=== PATIENT | female | born 1945 | race Two or more races ===

== ENCOUNTER 2022-01-21 19:21 | Inpatient (IN) | payer MEDICAID, OTHER ==
[~2022-01-21] VITALS: Ht 165.1 cm; Wt 41.3 kg
--- NOTE | 2022-01-21 19:47 | NUR ---
BIBPA FROM [facility] C/O DESTAT 89% AT [facility], NOW ON 5L 92% N/C AND BRIGH RED BLOOD IN SPUTUM. UPON ASSESSMENT, PT HAS SIGNIFICANT BLOOD IN SPUTUM WITH GURGLING RESPIRATION. BRIGH RED BLOOD SUCTIONED. PT 87% PLACED ON 10LPM SIMPLE MASK. PT AWAKE X0 AT BASELINE. PLACED ON MONITOR AND NOTED TACHYCARDIC AND NORMOTENSIVE. WAS AT BEDSIDE FOR PT EVAL.
--- NOTE | 2022-01-21 19:50 | NUR ---
RT AT PT'S BEDSIDE FOR SUCTION
--- NOTE | 2022-01-21 19:56 | NUR ---
URINE COLLECTED VIA F/C THAT INSERTED SITE DIRECTOR
--- NOTE | 2022-01-21 19:57 | NUR ---
R RIVER #20G S/L BLOOD COLLECTED AND SENT TO LAB
--- NOTE | 2022-01-21 20:02 | NUR ---
COVID ANTIGEN SWAB COLLECTED AND SENT TO LAB
[2022-01-21] MEDS ORDERED: PIPERACILLIN /TAZOBACTAM 3.375 G VIAL IV ONE (20:30)
[2022-01-21] MEDS ORDERED: PIPERACILLIN /TAZOBACTAM 3.375 G in IV D5W 50 ML IV ONE (20:30)
[2022-01-21 20:46] LABS: BASOPHILS # (AUTO) 0.1 K/uL (0.0-0.2); BASOPHILS % (AUTO) 0.3 % (0.0-2.0); EOSINOPHILS % (AUTO) 0.1 % (0.0-6.0); HEMATOCRIT 30 % (33-45); HEMOGLOBIN 9.1 g/dL (11.5-14.8); LYMPHOCYTES # (AUTO) 2.5 K/uL (0.8-4.8); LYMPHOCYTES % (AUTO) 14.5 % (20.0-44.0); MEAN CORPUSCULAR HGB CONC 31 g/dl (31.0-36.0); MEAN CORPUSCULAR VOLUME 86 fL (82-100); MONOCYTES # (AUTO) 0.5 K/uL (0.1-1.30); MONOCYTES % (AUTO) 2.8 % (2.0-12.0); NEUTROPHILS % (AUTO) 82.3 % (43.0-81.0); PLATELET COUNT (AUTO) 593 K/uL (150-450); RED BLOOD CELL COUNT(AUTO) 3.46 MIL/uL (4.0-5.2)
[2022-01-21 20:52] LABS: CALCIUM, SERUM 9.3 mg/dL (8.5-10.1); CARBON DIOXIDE 25 mmol/L (21-32); CHLORIDE 102 mmol/L (98-107); CREATININE 0.6 mg/dL (0.6-1.3); GLUCOSE 208 mg/dL (74-106); POTASSIUM 4.5 mmol/L (3.5-5.1); SODIUM SERUM 136 mmol/L (136-145); UREA NITROGEN, BLOOD 36 mg/dL (7-18)
[2022-01-21 20:58] LABS: BILIRUBIN,URINE NEGATIVE (NEGATIVE); COLOR,URINE YELLOW (YELLOW); LEUKOCYTE ESTERASE ,URINE LARGE (NEGATIVE); NITRITE, URINE POSITIVE (NEGATIVE); PROTEIN,URINE TRACE mg/dl (NEGATIVE); UGLUCOSE NEGATIVE (NEGATIVE); UROBILINOGEN,URINE 0.2 EU/dL (0.2)
[2022-01-21 21:03] LABS: ALANINE AMINOTRANSFERASE 19 U/L (12-78); ALBUMIN 2.9 g/dL (3.4-5.0); ALKALINE PHOSPHATASE 100 U/L (46-116); ASPARTATE AMINOTRANSFERASE 19 U/L (15-37); BILIRUBIN,DIRECT 0.1 mg/dL (0.0-0.2); BILIRUBIN,TOTAL 0.2 mg/dL (0.2-1.0); TOTAL PROTEIN, SERUM 7.7 g/dL (6.4-8.2)
--- NOTE | 2022-01-21 21:03 | NUR ---
EPIC PANEL PAGED
[2022-01-21 21:11] LABS: TRIPLE PHOSPHATE CRYSTAL,UR Many /HPF (None Seen); URINE AMORPHOUS PHOSPHATES Few /HPF (None Seen)
[2022-01-21 21:12] LABS: BACTERIA,URINE 3+ /HPF (None Seen); SQUAMOUS EPITHELIAL CELL,UR 0-2 /HPF (None Seen); WBC,URINE 51-80 /HPF (0-3)
[2022-01-21] MEDS ORDERED: IV NS 0.9% 1,000 ML IV PRN (22:00)
[2022-01-21] MEDS ORDERED: ALBUTEROL FS 2.5 MG/0.5 ML VIAL.NEB NEB ONE (22:00)
[2022-01-21] MEDS ORDERED: MAGNESIUM HYDROXIDE 30 ML UDC PO PRN (22:00)
[2022-01-21] MEDS ORDERED: MAG HYDROX/AL HYDROX/SIMETH 30 ML UDC PO PRN (22:00)
[2022-01-21] MEDS ORDERED: ZOLPIDEM TARTRATE 5 MG TABLET PO PRN (22:00)
[2022-01-21] MEDS ORDERED: Z GUARD REMEDY 4 OZ OINT TP PRN (22:00)
[2022-01-21] MEDS ORDERED: IPRATROPIUM NEB FS 0.5 MG/2.5 ML AMPUL.NEB NEB ONE (22:00)
[2022-01-21] MEDS ORDERED: ACETAMINOPHEN 325 MG TABLET PO PRN (22:00)
[2022-01-21] MEDS ORDERED: ONDANSETRON HCL/PF 4 MG/2 ML VIAL IVP PRN (22:00)
[2022-01-21 23:30] LABS: HEMOGLOBIN 8.8 g/dL (11.5-14.8)
[2022-01-22] MEDS ORDERED: VANCOMYCIN 1 GM in IV D5W 250ml IV ONE ×2
[2022-01-22] MEDS ORDERED: DEXTROSE 50%-WATER 50 ML DISP.SYRIN IV PRN
--- NOTE | 2022-01-22 00:12 | NUR ---
REPORT GIVEN TO EFRAÍN
[2022-01-22 00:30] VITALS: BP 122/73
--- NOTE | 2022-01-22 00:30 | NUR ---
TECHNICAL SYSTEMS ARCHITECT OPENING NOTE RECEIVED PATIENT VIA LOGANRYESSY FROM ED. PT NON VERBAL, ON 2L 02 VIA NC, TOLERATING WELL, SATTING AT 99%, NO S/S OF ACUTE DISTRESS. VSS. TELE MONITOR READING ST HR 108. IV ACCESS FLOR PICC LINE 1 LUMEN, INTACT AND PATENT, PATEINT COVERED IN DRIED BLOOD, FROM ASPIRATION IN THE ER. SACRAL WOUND AND BRUISING/OLD HEALED WOUNDS ON BOTH BUTTOCKS, PICTURES IN THE CHART. ALL SAFETY MEASURES IN PLACE, AND WILL CONTINUE TO MONITOR THROUGHOUT SHIFT.
--- NOTE | 2022-01-22 00:30 | NUR ---
pt transported to room 104 on cardiac per ACLS
[2022-01-22] MEDS ORDERED: VANCOMYCIN 1 GM VIAL ONE (01:47)
[2022-01-22] MEDS: PANTOPRAZOLE 40 MG VIAL IV SCH ×3 (01:53→22:35)
[2022-01-22] MEDS ORDERED: PIPERACILLIN /TAZOBACTAM 3.375 G in IV D5W 50 ML IV ONE (03:00)
[2022-01-22] MEDS ORDERED: PIPERACILLIN /TAZOBACTAM 3.375 G VIAL IV ONE (03:31)
--- NOTE | 2022-01-22 03:43 | NUR ---
RN NOTE CALLED [facility] ABOUT ZOSYN DUE AT 030. ORDER WAS DUE, CHARGE PULLED/OVERRIDED TWINICERAFAEL AT 033. I SCANNED INTO EMAR AT 033 TO ADMINISTER. ONCE THE MED WAS SCANNED FOR ADMINISTRATION THE ORDER THEN SAID DC AT 032. RIMMA FROM [facility] ADVISED TO GIVE THE MED OF ZOSYN.
[2022-01-22 04:00] VITALS: BP 122/74
[2022-01-22] MEDS ORDERED: PIPERACILLIN /TAZOBACTAM 3.375 G in IV D5W 50 ML IV SCH (06:00)
[2022-01-22 06:18] LABS: CARBON DIOXIDE 26 mmol/L (21-32); CHLORIDE 104 mmol/L (98-107); CREATININE 0.5 mg/dL (0.6-1.3); GLUCOSE 197 mg/dL (74-106); MAGNESIUM 2.2 mg/dL (1.8-2.4); PHOSPHORUS 2.8 mg/dL (2.5-4.9); SODIUM SERUM 137 mmol/L (136-145); UREA NITROGEN, BLOOD 40 mg/dL (7-18)
--- NOTE | 2022-01-22 07:03 | NUR ---
FARM MANAGER CLOSING NOTE PATIENT ASLEEP IN BED, PT NON VERBAL, ON 2L 02 VIA NC, TOLERATING WELL, SATTING AT 99%, NO S/S OF ACUTE DISTRESS. VSS. TELE MONITOR READING ST HR 110. IV ACCESS FLOR PICC LINE 1 LUMEN, CURRENTLY OCCLUDED. MICHAELS CATHETER DRAINING CLEAR YELLOW URINE WITH SOME SEDIMENTS. ALL DUE MEDS GIVEN. ALL SAFETY MEASURES IN PLACE. WILL ENDORSE TO MORNING SHIFT FOR CONTINUOS CARE.
--- NOTE | 2022-01-22 07:29 | NUR ---
WEB CONTENT DEVELOPER OPENING NOTE RECEIVED PT NON VERBAL, ON 2L 02 VIA NC, TOLERATING WELL, NO S/S OF ACUTE DISTRESS. VSS. TELE MONITOR. CURRENTLY DOES NOT HAVE IV ACCES PICC LINE BECAME CLOGGED. FROM ASPIRATION IN THE ER. PATIENT IS NPO DUE TO ASPIRATION PRECAUTIONS PENDING GI CONSULT.. ALL SAFETY MEASURES IN PLACE, AND WILL CONTINUE TO MONITOR THROUGHOUT SHIFT.
[2022-01-22 08:00] VITALS: BP 109/66
[2022-01-22] MEDS: BLOOD SUGAR DIAGNOSTIC 1 EACH STRIP IN SCH ×4 (08:56→22:35)
--- NOTE | 2022-01-22 08:56 | NUR ---
RN NOTE NO IV ACCES ON PATIENT PENDING MIDLINE PLACEMENT WILL HOLD IV PROTONIX, BLOOD GLUCOSE 184 PATIENT IS NPO NO FLUIDS RUNNING WILL HOLD AM INSULIN. AND WILL REASSESS GLUCOSE STATUS 1200
[2022-01-22] MEDS ORDERED: PANTOPRAZOLE 40 MG VIAL IV SCH (09:00)
[2022-01-22 09:13] LABS: HEMOGLOBIN 8.3 g/dL (11.5-14.8)
[2022-01-22 09:16] LABS: BASOPHILS % (AUTO) 0.1 % (0.0-2.0); HEMATOCRIT 27 % (33-45); LYMPHOCYTES # (AUTO) 2.1 K/uL (0.8-4.8); LYMPHOCYTES % (AUTO) 7.2 % (20.0-44.0); MEAN CORPUSCULAR HGB CONC 30 g/dl (31.0-36.0); MEAN CORPUSCULAR VOLUME 85 fL (82-100); MONOCYTES # (AUTO) 0.7 K/uL (0.1-1.30); MONOCYTES % (AUTO) 2.4 % (2.0-12.0); NEUTROPHILS # (AUTO) 26.6 K/uL (1.8-8.9); NEUTROPHILS % (AUTO) 90.3 % (43.0-81.0); PLATELET COUNT (AUTO) 467 K/uL (150-450); WHITE BLOOD COUNT (AUTO) 29.5 K/uL (4.3-11.0)
[2022-01-22] MEDS ORDERED: ACET650S26 GT (09:23)
[2022-01-22] MEDS ORDERED: NUT.237L30 GT (09:23)
[2022-01-22] MEDS ORDERED: ACID1TAB12 GT (09:23)
[2022-01-22] MEDS ORDERED: AMLO-212 GT (09:23)
[2022-01-22] MEDS ORDERED: CLOP75TA15 GT (09:23)
[2022-01-22] MEDS ORDERED: ASPI-1169 GT (09:23)
[2022-01-22] MEDS ORDERED: METF-441 GT (09:24)
[2022-01-22] MEDS ORDERED: AMIN30LI2 GT (09:24)
[2022-01-22] MEDS ORDERED: SODI473S8 TD (09:24)
[2022-01-22] MEDS ORDERED: ACET-2605 GT (09:24)
[2022-01-22] MEDS ORDERED: INSU100V39 SQ (09:24)
[2022-01-22] MEDS ORDERED: HYDR-4303 GT ×2 (09:24)
[2022-01-22] MEDS ORDERED: CRAN3875 GT (09:24)
[2022-01-22] MEDS ORDERED: MULT-447 GT (09:24)
[2022-01-22] MEDS ORDERED: SENN-261 GT (09:24)
--- NOTE | 2022-01-22 11:06 | NUR ---
WOUND CARE CONSULT: PT SLEEPING SOUNDLY AT THIS TIME. REVIEWED CHART, NURSING DOCUMENTATION AND PHOTO WHICH INDICATES SACRAL STAGE 4 PRESSURE ULCER, PRESENT ON ADMISSION. PT SLEEPING ON SIDE AND NOTED TO HAVE DISCOLORATION TO FEET, PRESENT ON ADMISSION. DR DUMONT CALLED FOR SURGICAL CONSULT. [facility] IN AGREEMENT WITH PLAN OF CARE. Addendum: 01/22/22 at 1107 by SANG GARCIA WNDNU DISCUSSED SKIN PROTECTION WITH NURSING STAFF.
[2022-01-22] MEDS: PIPERACILLIN /TAZOBACTAM 3.375 G in IV D5W 100 ML IV SCH ×2 (11:11→17:32)
[2022-01-22 12:00] VITALS: BP 125/67
[2022-01-22 12:22] LABS: BAND % (MANUAL) 15 % (0.0-5.0); LYMPHOCYTES % (MANUAL) 5 % (16-48); MONOCYTES % (MANUAL) 1 % (0-11.0); NEUTROPHILS % (MANUAL) 79 (42-76)
--- NOTE | 2022-01-22 15:33 | NUR ---
RN NOTE ATTEMPTED TO CONTACT PATIENT SON [phone] ASHWIN HOYOS REGARDING EGD CONSENT. LEFT MESSAGE TO CALL UNIT BACK. Addendum: 01/22/22 at 1554 by PAVAN FIGUEROA RN SON CALLED BACK CONSENT WAS GIVEN FOR PROCEDURE, ANESTHESIA, NAND BLOOD TRANSFUSION IF NEEDED, CHARGE NURSE WITNESSED. CONSENTS PLACED IN THE CHART
[2022-01-22] MEDS: VANCOMYCIN 500 MG in IV D5W 100 ML IV SCH (15:39)
[2022-01-22 16:00] VITALS: BP 122/66
[2022-01-22] MEDS: INSULIN REGULAR, HUMAN 100 UNIT/ML 3 ML VIAL SQ PRN ×2 (17:33→23:47)
--- NOTE | 2022-01-22 17:49 | NUR ---
UNABLE TO PERFORM DUPLEX VENOUS LOWER EXT BILATERAL PATIENT IS CONTRACTED. JULIA BROWNE ADVISED. SHE INFORMED DR. WILL.
--- NOTE | 2022-01-22 18:04 | NUR ---
RN NOTE RECEIVED CALL FROM DR GARNETT ANESTHESIOLOGY. REQUESTING I SPEAK TO HOSPITALIST REGARDING GIVING A POSSIBLE BOLUS. PATIENT IS TACHY AND LACTIC ACID IS ELEVATED DR GARNETT WAS CONCERN REGARDING DEHYDRATION. INFORMED DR GREY WAS GIVEN TH ORDER TO INCREASE FLUIDS TO 125MLS/HR. DR GARNETT ALSO SUGGESTED TYPE AND SCREEN PRIOR TO PROCEDURE DUE TO HGB 8.3. ORDER PLACED AND FOLLOWED.
--- NOTE | 2022-01-22 18:43 | NUR ---
COOKIE BREAKER CLOSING NOTE PATIENT ASLEEP IN BED, PT NON VERBAL, ON 2L 02 VIA NC, TOLERATING WELL, SATTING AT 98%, NO S/S OF ACUTE DISTRESS. VSS. TELE MONITOR READING ST HR 104. IV ACCESS FLOR PICC LINE 1 LUMEN, LEFT UPPER ARM MIDLINE AND RIGHT WRIST 20G IV . MICHAELS CATHETER DRAINING CLEAR YELLOW URINE WITH SOME SEDIMENTS. ALL DUE MEDS GIVEN. ALL SAFETY MEASURES IN PLACE. WILL ENDORSE TO BUSINESS OWNER/ENGINEER FOR DARWIN.
[2022-01-22] MEDS: DAKINS QUARTER STRENGTH (0.125%) 480 ML BOTTLE TOP SCH (19:00)
--- NOTE | 2022-01-22 19:30 | NUR ---
PT RECEIVED AWAKE IN BED, PT NON VERBAL, ON 2L 02 VIA NC, NO S/S OF ACUTE DISTRESS. TELE MONITOR READING ST HR 110. IV ACCESS FLOR PICC LINE 1 LUMEN, LEFT UPPER ARM MIDLINE AND RIGHT WRIST 20G IV. WITH NS INFUSING AT 125 ML/HR. MICHAELS CATHETER DRAINING CLEAR YELLOW URINE WITH SOME SEDIMENTS. SAFETY MEASURES IN PLACE. HEAD OF BED SLIGHTLY ELEVATED, BED LOCKED IN LOWEST POSITION, SIDE RAILS UP X2, BED ALARM ON, CALL LIGHT WITHIN REACH. WILL CONTINUE PLAN OF CARE.
[2022-01-22 20:00] VITALS: BP 125/66
[2022-01-22] MEDS: IV NS 0.9% 1,000 ML IV PRN (20:59)
[2022-01-23] VITALS: BP 151/72
[2022-01-23] MEDS: PIPERACILLIN /TAZOBACTAM 3.375 G in IV D5W 100 ML IV SCH ×3 (01:01→18:32)
[2022-01-23] MEDS: VANCOMYCIN 500 MG in IV D5W 100 ML IV SCH (01:01)
[2022-01-23 04:00] VITALS: BP 110/57
--- NOTE | 2022-01-23 07:46 | NUR ---
PT ASLEEP IN BED, PT NON VERBAL, ON 2L 02 VIA NC, NO S/S OF ACUTE DISTRESS. TELE MONITOR READING SR AT 90'S AT THIS TIME. IV ACCESS FLOR PICC LINE 1 LUMEN, LEFT UPPER ARM MIDLINE AND RIGHT WRIST 20G IV. WITH NS INFUSING AT 125 ML/HR. MICHAELS CATHETER REPLACED DRAINING CLEAR YELLOW URINE. SAFETY MEASURES MAINTAINED. HEAD OF BED SLIGHTLY ELEVATED, BED LOCKED IN LOWEST POSITION, SIDE RAILS UP X2, BED ALARM ON, CALL LIGHT WITHIN REACH. WILL ENDORSE TO NEXT NURSE ON DUTY FOR CONTINUITY OF CARE.
[2022-01-23 08:00] VITALS: BP 135/66
[2022-01-23] MEDS: PANTOPRAZOLE 40 MG VIAL IV SCH ×2 (08:23→22:01)
[2022-01-23] MEDS: DAKINS QUARTER STRENGTH (0.125%) 480 ML BOTTLE TOP SCH (08:24)
[2022-01-23] MEDS: BLOOD SUGAR DIAGNOSTIC 1 EACH STRIP IN SCH ×4 (08:30→22:09)
[2022-01-23] MEDS: IV NS 0.9% 1,000 ML IV PRN (09:47)
[2022-01-23 11:07] LABS: CALCIUM, SERUM 8.7 mg/dL (8.5-10.1); CARBON DIOXIDE 26 mmol/L (21-32); CHLORIDE 114 mmol/L (98-107); CREATININE 0.4 mg/dL (0.6-1.3); GLUCOSE 120 mg/dL (74-106); POTASSIUM 3.1 mmol/L (3.5-5.1); SODIUM SERUM 148 mmol/L (136-145); UREA NITROGEN, BLOOD 24 mg/dL (7-18)
[2022-01-23 12:00] VITALS: BP 115/65
--- NOTE | 2022-01-23 13:45 | NUR ---
RN NOTE PATIENT WAS TAKEN TO SURGERY FOR EGD AT 1130 AND BROUGHT BACK BY JULIA CROCKER AT 1345. PATIENT WITH OPEN EYE AND NORMAL VITAL SIGNS. BP: 116/52 HR:75 O2:98% RR: 20 T:97.8 PATIENT ON NC 2L. RESUMED ON PREVIOUS MEDICATION AND DIET. BED AT LOWEST POSITION CALL LIGHT WITHIN REACH, BED ALARM ON. WILL MONITOR PATIENT T/O THE SHIFT.
[2022-01-23 16:00] VITALS: BP 128/58
[2022-01-23] MEDS ORDERED: GLUCERNA 1.2 1,000 ML BOTTLE GT PRN (16:30)
[2022-01-23] MEDS: VANCOMYCIN HCL 0.75 GM in IV D5W 250 ML IV SCH (17:33)
--- NOTE | 2022-01-23 19:00 | NUR ---
RN CLOSING NOTE PATIENT AWAKE IN BED NON VERBAL, ON 2L OXYGEN VIA NC, TOLERATING WELL, SATTING AT 98%, NO S/S OF ACUTE DISTRESS. VSS. TELE MONITOR READING ST HR 105. IV ACCESS FLOR PICC LINE 1 LUMEN, LEFT UPPER ARM MIDLINE AND RIGHT WRIST 20G IV . MICHAELS CATHETER DRAINING CLEAR YELLOW URINE WITH SOME SEDIMENTS. ALL DUE MEDS GIVEN. ALL SAFETY MEASURES IN PLACE. WILL ENDORSE TO GOVERNMENT GUARD FOR DARWIN.
[2022-01-23 20:00] VITALS: BP 122/65
--- NOTE | 2022-01-23 22:15 | NUR ---
2215 critical MRSA nares positive result relayed to GERALDO Casas with order made. Order noted and carried out.
[2022-01-24] VITALS (11 sets, daily range): BP systolic 113–144; BP diastolic 55–78
[2022-01-24] MEDS: PIPERACILLIN /TAZOBACTAM 3.375 G in IV D5W 100 ML IV SCH ×3 (02:54→22:17)
[2022-01-24] MEDS: IV NS 0.9% 1,000 ML IV PRN (04:25)
[2022-01-24] MEDS: VANCOMYCIN HCL 0.75 GM in IV D5W 250 ML IV SCH ×2 (04:25→17:27)
--- NOTE | 2022-01-24 06:30 | NUR ---
RN CLOSING NOTE: AWAKE. ABLE TO OPEN EYES. NON-VERBAL. GT IN PLACE PATENT. HOB ELEVATED ON SEMI-FOWLERS POSITION. KEPT CLEAN AND DRY. TURNED AND REPOSITIONED WITH PILLOWS. NO A/R TO ABX. IVF ORDERED. ALL IV LINES IN PLACE PATENT AND WITH NO COMPLICATIONS. HOB ELEVATED. BILATERAL HALF SIDE RAILS UP X2. BED IN LOWEST POSITION. BED IS LOCKED. BED EXIT ALARM ON. CALL LIGHT IN REACH.
[2022-01-24 06:51] LABS: CALCIUM, SERUM 8.6 mg/dL (8.5-10.1); CARBON DIOXIDE 25 mmol/L (21-32); CHLORIDE 110 mmol/L (98-107); CREATININE 0.3 mg/dL (0.6-1.3); GLUCOSE 175 mg/dL (74-106); MAGNESIUM 1.8 mg/dL (1.8-2.4); PHOSPHORUS 2.1 mg/dL (2.5-4.9); UREA NITROGEN, BLOOD 11 mg/dL (7-18)
[2022-01-24 07:19] LABS: BASOPHILS % (AUTO) 0.1 % (0.0-2.0); EOSINOPHILS % (AUTO) 0.1 % (0.0-6.0); LYMPHOCYTES # (AUTO) 1.4 K/uL (0.8-4.8); MEAN CORPUSCULAR HGB CONC 31 g/dl (31.0-36.0); MEAN CORPUSCULAR VOLUME 85 fL (82-100); MONOCYTES # (AUTO) 0.5 K/uL (0.1-1.30); MONOCYTES % (AUTO) 5.4 % (2.0-12.0); NEUTROPHILS # (AUTO) 7.8 K/uL (1.8-8.9); NEUTROPHILS % (AUTO) 80.4 % (43.0-81.0); PLATELET COUNT (AUTO) 318 K/uL (150-450); RED BLOOD CELL COUNT(AUTO) 2.37 MIL/uL (4.0-5.2); WHITE BLOOD COUNT (AUTO) 9.7 K/uL (4.3-11.0)
[2022-01-24 07:35] LABS: HEMATOCRIT 20 % (33-45); HEMOGLOBIN 6.3 g/dL (11.5-14.8)
--- NOTE | 2022-01-24 07:38 | NUR ---
LAB Called in stated that hgb 6.3 hct 20 left message to ,waiting for returning call back
[2022-01-24 07:43] LABS: SODIUM SERUM 144 mmol/L (136-145)
[2022-01-24 08:05] LABS: POTASSIUM 2.3 mmol/L (3.5-5.1)
[2022-01-24] MEDS ORDERED: GLUCERNA 1.2 1,000 ML BOTTLE GT PRN (08:54)
[2022-01-24] MEDS: PANTOPRAZOLE 40 MG VIAL IV SCH ×2 (09:28→21:01)
[2022-01-24] MEDS: POTASSIUM CL. PREMIX PERIPHER. 50 ML IV SCH ×8 (09:31→22:18)
[2022-01-24] MEDS: DAKINS QUARTER STRENGTH (0.125%) 480 ML BOTTLE TOP SCH (09:32)
[2022-01-24] MEDS: BLOOD SUGAR DIAGNOSTIC 1 EACH STRIP IN SCH ×4 (09:32→23:19)
[2022-01-24] MEDS ORDERED: NEUTRA PHOS 1 POWD.PACKET GT ONE (10:00)
[2022-01-24 12:43] LABS: BAND % (MANUAL) 5 % (0.0-5.0); EOSINOPHILS % (MANUAL) 2 % (0-4); LYMPHOCYTES % (MANUAL) 13 % (16-48); METAMYELOCYTES % 1 % (0-0); MONOCYTES % (MANUAL) 3 % (0-11.0); NEUTROPHILS % (MANUAL) 75 (42-76)
--- NOTE | 2022-01-24 19:02 | NUR ---
RN NOTE PT STARTED BLOOD TRANSFUSION 1UNIT PRBC. NO ALLERGIC REACTIONS NOTED. WILL CONTINUE TO MONITOR. PT ON NPO STATUS.
--- NOTE | 2022-01-24 19:25 | NUR ---
RN NOTE S/P WOUND DEBRIDEMENT ON SACRUM. NO ACTIVE BLEEDING, NO SS OF INFECTION NOTED.
[2022-01-24] MEDS: MUPIROCIN OINT 2% 22 GM TUBE NS SCH (22:19)
[2022-01-24] MEDS: INSULIN REGULAR, HUMAN 100 UNIT/ML 3 ML VIAL SQ PRN (23:23)
[2022-01-25] VITALS: BP 142/65
[2022-01-25] MEDS: PIPERACILLIN /TAZOBACTAM 3.375 G in IV D5W 100 ML IV SCH ×3 (02:48→17:09)
[2022-01-25 04:00] VITALS: BP 115/55
[2022-01-25] MEDS: VANCOMYCIN HCL 0.75 GM in IV D5W 250 ML IV SCH ×3 (05:21→21:26)
[2022-01-25 06:39] LABS: BASOPHILS % (AUTO) 0.2 % (0.0-2.0); EOSINOPHILS % (AUTO) 0.1 % (0.0-6.0); HEMATOCRIT 25 % (33-45); HEMOGLOBIN 8.2 g/dL (11.5-14.8); LYMPHOCYTES % (AUTO) 26.5 % (20.0-44.0); MEAN CORPUSCULAR HGB CONC 32 g/dl (31.0-36.0); MEAN CORPUSCULAR VOLUME 85 fL (82-100); MONOCYTES # (AUTO) 0.6 K/uL (0.1-1.30); MONOCYTES % (AUTO) 7.6 % (2.0-12.0); NEUTROPHILS # (AUTO) 4.9 K/uL (1.8-8.9); NEUTROPHILS % (AUTO) 65.6 % (43.0-81.0); PLATELET COUNT (AUTO) 294 K/uL (150-450); RED BLOOD CELL COUNT(AUTO) 2.99 MIL/uL (4.0-5.2); WHITE BLOOD COUNT (AUTO) 7.5 K/uL (4.3-11.0)
[2022-01-25] MEDS: IV NS 0.9% 1,000 ML IV PRN (06:42)
--- NOTE | 2022-01-25 06:55 | NUR ---
RN CLOSING NOTE: AWAKE. ABLE TO OPEN EYES. NON-VERBAL. GT IN PLACE PATENT. GT FEEDING FORMULA ON HOLD. HOB ELEVATED ON SEMI-FOWLERS POSITION. KEPT CLEAN AND DRY. TOPICAL TREATMENT DONE ORDERED. ON TELE MONITOR WITH A READING OF SINUS RHYTHM 86. TURNED AND REPOSITIONED WITH PILLOWS. NO A/R TO ABX. IVF ORDERED. S/P BLOOD TRANSFUSION WITH NO A/R. ALL IV LINES IN PLACE PATENT AND WITH NO COMPLICATIONS. HOB ELEVATED. BILATERAL HALF SIDE RAILS UP X2. BED IN LOWEST POSITION. BED IS LOCKED. BED EXIT ALARM ON. CALL LIGHT IN REACH. ISOLATION PRECAUTIONS MAINTAINED.
[2022-01-25 07:49] LABS: CALCIUM, SERUM 8.4 mg/dL (8.5-10.1); CARBON DIOXIDE 25 mmol/L (21-32); CHLORIDE 108 mmol/L (98-107); CREATININE 0.3 mg/dL (0.6-1.3); GLUCOSE 117 mg/dL (74-106); MAGNESIUM 1.8 mg/dL (1.8-2.4); POTASSIUM 2.9 mmol/L (3.5-5.1); SODIUM SERUM 142 mmol/L (136-145); UREA NITROGEN, BLOOD 6 mg/dL (7-18)
[2022-01-25 08:00] VITALS: BP 135/59
[2022-01-25] MEDS: PANTOPRAZOLE 40 MG VIAL IV SCH ×2 (09:03→21:26)
[2022-01-25] MEDS: BLOOD SUGAR DIAGNOSTIC 1 EACH STRIP IN SCH ×4 (09:04→21:26)
[2022-01-25] MEDS: MUPIROCIN OINT 2% 22 GM TUBE NS SCH ×2 (09:04→21:26)
[2022-01-25] MEDS: DAKINS QUARTER STRENGTH (0.125%) 480 ML BOTTLE TOP SCH (09:05)
[2022-01-25 12:00] VITALS: BP 128/60
[2022-01-25] MEDS ORDERED: NEUTRA PHOS 1 POWD.PACKET PO ONE (12:00)
[2022-01-25] MEDS: POTASSIUM CL. PREMIX PERIPHER. 50 ML IV SCH ×4 (12:16→15:00)
[2022-01-25 16:00] VITALS: BP 154/75
[2022-01-25] MEDS ORDERED: POTASSIUM CL. PREMIX PERIPHER. 50 ML IV SCH (17:30)
--- NOTE | 2022-01-25 18:44 | NUR ---
RN NOTE PT RESTING AWAKE. ABLE TO OPEN EYES. NON-VERBAL. GT IN PLACE PATENT. HOB ELEVATED ON SEMI-FOWLERS POSITION. ON TELE MONITOR WITH A READING OF SINUS RHYTHM.TURNED AND REPOSITIONED. IV ACCESS IN TALYA MIDLINE PLACE PATENT AND WITH NO COMPLICATIONS. DUE MEDS GIVEN, AM/PM CARE DONE.
--- NOTE | 2022-01-25 19:00 | NUR ---
RN NOTE Received patient in bed, oriented to self, non verbal, in no acute distress, saturation at 98% on 2L via NC, SR on the monitor, HR is 78. FLOR PICC line, TALYA midline and R hand 20g flushing well, saline locked. Gtube clamped, patient kept NPO except meds. Padilla catheter draining to a clear, yellow output. Safety measures in place, bed is locked and at lowest position, bed alarm on, call light within reach of patient. Will continue to monitor and reassess.
[2022-01-25 20:00] VITALS: BP 143/74
[2022-01-26] VITALS: BP 146/62
[2022-01-26] MEDS: PIPERACILLIN /TAZOBACTAM 3.375 G in IV D5W 100 ML IV SCH ×3 (01:27→18:01)
[2022-01-26 04:00] VITALS: BP 140/90
[2022-01-26] MEDS: VANCOMYCIN HCL 0.75 GM in IV D5W 250 ML IV SCH ×3 (05:37→21:40)
[2022-01-26 06:57] LABS: BASOPHILS % (AUTO) 0.2 % (0.0-2.0); EOSINOPHILS % (AUTO) 0.3 % (0.0-6.0); HEMATOCRIT 29 % (33-45); HEMOGLOBIN 9.6 g/dL (11.5-14.8); LYMPHOCYTES # (AUTO) 1.6 K/uL (0.8-4.8); LYMPHOCYTES % (AUTO) 22.8 % (20.0-44.0); MEAN CORPUSCULAR HGB CONC 33 g/dl (31.0-36.0); MEAN CORPUSCULAR VOLUME 83 fL (82-100); MONOCYTES # (AUTO) 0.5 K/uL (0.1-1.30); NEUTROPHILS % (AUTO) 69.7 % (43.0-81.0); PLATELET COUNT (AUTO) 360 K/uL (150-450); RED BLOOD CELL COUNT(AUTO) 3.52 MIL/uL (4.0-5.2); WHITE BLOOD COUNT (AUTO) 7.2 K/uL (4.3-11.0)
[2022-01-26 07:11] LABS: CALCIUM, SERUM 8.9 mg/dL (8.5-10.1); CARBON DIOXIDE 26 mmol/L (21-32); CHLORIDE 102 mmol/L (98-107); CREATININE 0.4 mg/dL (0.6-1.3); GLUCOSE 129 mg/dL (74-106); MAGNESIUM 1.6 mg/dL (1.8-2.4); PHOSPHORUS 3.1 mg/dL (2.5-4.9); SODIUM SERUM 139 mmol/L (136-145); UREA NITROGEN, BLOOD 4 mg/dL (7-18)
--- NOTE | 2022-01-26 07:30 | NUR ---
CUSTOMER ENGAGEMENT SPECIALIST OPENING NOTES: RECEIVED PATIENT IN BED, AWAKE, PATIENT IS NONVERBAL BUT RESPONDS TO SOUND AND TACTILE STIMULI. ON OXYGEN @ 2L/MIN VIA N/C WITH OXYGEN SATURATION OF 98%. NO SOB NOTED NOTED, BREATHING EVEN AND UNLABORED. ON SR ON TELE MONITOR WITH HR OF 83. PATIENT HAS IV ACCESS ON LEFT UPPER ARM MIDLINE, RIGHT UPPER ARM PICC AND RIGHT HAND SALINE LOCK, ALL IV SITES PATENT AND FLUSHES WELL, NO S/S INFILTRATION NOTED. MICHAELS CATHETER IN PLACE, DRAINING WITH YELLOW COLORED URINE, NO HEMATURIA AND NO SEDIMENTATION NOTED. HOB KEPT ELEVATED. G-TUBE SITE PATENT, IN PLACE, NO RESIDUAL NOTED, FLUSHES WELL. BED LOCKED AND IN LOWEST POSITION, ALL SAFETY MEASURES IN PLACE. CALL LIGHT WITHIN REACH. WILL CONTINUE TO MONITOR PATIENT THROUGHOUT SHIFT.
[2022-01-26] MEDS: BLOOD SUGAR DIAGNOSTIC 1 EACH STRIP IN SCH ×4 (07:57→21:56)
[2022-01-26] MEDS: INSULIN REGULAR, HUMAN 100 UNIT/ML 3 ML VIAL SQ PRN ×3 (07:59→21:55)
[2022-01-26 08:00] VITALS: BP 149/87
[2022-01-26 08:05] LABS: POTASSIUM 2.6 mmol/L (3.5-5.1)
[2022-01-26] MEDS: PANTOPRAZOLE 40 MG VIAL IV SCH (08:26)
[2022-01-26] MEDS: MUPIROCIN OINT 2% 22 GM TUBE NS SCH ×2 (08:26→21:39)
[2022-01-26] MEDS: DAKINS QUARTER STRENGTH (0.125%) 480 ML BOTTLE TOP SCH (08:27)
[2022-01-26] MEDS: PROSOURCE / PROSTAT (PYXIS) 30 ML UDC GT SCH ×4 (09:00→21:39)
[2022-01-26] MEDS: GLUCERNA 1.2 1,000 ML BOTTLE GT PRN (09:45)
[2022-01-26 12:00] VITALS: BP 132/77
[2022-01-26] MEDS: Magnesium 1GM/D5W 100ML PREMIX 100 ML IV SCH ×2 (13:27→15:05)
--- NOTE | 2022-01-26 13:28 | NUR ---
DR GREY INFORMED OF POTASSIUM LEVEL OF 2.6 WITH AN ORDER FOR 40 MEQ PO AND IV. ORDERS NOTED AND CARRIED OUT.
[2022-01-26] MEDS ORDERED: POTASSIUM CHLORIDE 20 MEQ POWDER PACKET GT SCH (14:00)
[2022-01-26] MEDS ORDERED: POTASSIUM CHLORIDE 10 MEQ/50 ML PREMIXED IVPB FOR PERIPHERAL LINE IV ONE (14:00)
[2022-01-26] MEDS: POTASSIUM CL. PREMIX PERIPHER. 50 ML IV SCH ×4 (14:06→18:01)
--- NOTE | 2022-01-26 15:00 | NUR ---
PATIENT'S SON AND [id number] CAME TO VISIT THE PATIENT. DR. GREY WENT IN TO UPDATE THE FAMILY OF THE PATIENT'S CONDITION BUT THE [id number] WAS UPSET AND WAS RAISING HER VOICE TO THE DOCTOR AND TO EVERYONE AROUND. TRIED TO DEESCALATE THE SITUATION AND BROUGHT THE ALGERIAN SPEAKING NURSE MARIA LUZ TO EXPLAIN TO HER TO PLEASE TRY TO CALM DOWN AND TO INTERPRET FOR THE DOCTOR BUT THE [id number] WAS VERY DISRESPECTFUL AND CONTINUES TO INTERRUPT THE DOCTOR WHILE SHE WAS EXPLAINING TO THE SON THE PATIENT'S SITUATION.
[2022-01-26 16:00] VITALS: BP 141/74
--- NOTE | 2022-01-26 18:39 | NUR ---
NURSERY TECHNICIAN CLOSING NOTES: PATIENT IN BED ASLEEP BUT EASILY AROUSES TO VOICE AND TACTILE STIMULI. NO SOB NOTED. ON SR ON TELE MONITOR WITH HR OF 93. BED LOCKED AND IN LOWEST POSITION. ALL NEEDS MET AND ANTICIPATED. PATIENT REMAINS AFEBRILE THE ENTIRE SHIFT. CALL LIGHT WITHIN REACH. HOB KEPT SLIGHTLY ELEVATED. WILL ENDORSE TO NEXT SHIFT NURSE FOR CONTINUITY OF CARE.
--- NOTE | 2022-01-26 19:00 | NUR ---
RN NOTE Received patient in bed, oriented to self, non verbal, in no acute distress, saturation at 98% on 2L via NC, SR on the monitor, HR is 89. FLOR PICC line, TALYA midline and R hand 20g flushing well, with NS infusing at 125 ml/hr. Gtube in place positive placement noted with Glucerna at 50 ml/hr. Padilla catheter draining to a clear, yellow output. Safety measures in place, bed is locked and at lowest position, bed alarm on, call light within reach of patient. Will continue to monitor and reassess.
[2022-01-26 20:00] VITALS: BP 137/64
[2022-01-26] MEDS: PANTOPRAZOLE 40 MG/PACK PACK GT SCH (21:39)
[2022-01-27] VITALS: BP 147/78
[2022-01-27] MEDS: PIPERACILLIN /TAZOBACTAM 3.375 G in IV D5W 100 ML IV SCH ×3 (03:28→17:51)
[2022-01-27 04:00] VITALS: BP 130/66
[2022-01-27] MEDS: VANCOMYCIN HCL 0.75 GM in IV D5W 250 ML IV SCH ×2 (05:12→16:48)
[2022-01-27] MEDS: IV NS 0.9% 1,000 ML IV PRN ×2 (05:12→12:56)
[2022-01-27] MEDS ORDERED: DEXTROSE 50%-WATER 50 ML DISP.SYRIN IV PRN (06:00)
[2022-01-27 06:04] LABS: BASOPHILS % (AUTO) 0.2 % (0.0-2.0); EOSINOPHILS % (AUTO) 0.3 % (0.0-6.0); HEMATOCRIT 31 % (33-45); HEMOGLOBIN 9.9 g/dL (11.5-14.8); LYMPHOCYTES # (AUTO) 1.6 K/uL (0.8-4.8); LYMPHOCYTES % (AUTO) 15.3 % (20.0-44.0); MEAN CORPUSCULAR HGB CONC 32 g/dl (31.0-36.0); MEAN CORPUSCULAR VOLUME 84 fL (82-100); MONOCYTES # (AUTO) 0.7 K/uL (0.1-1.30); MONOCYTES % (AUTO) 7.2 % (2.0-12.0); NEUTROPHILS # (AUTO) 7.9 K/uL (1.8-8.9); PLATELET COUNT (AUTO) 378 K/uL (150-450); RED BLOOD CELL COUNT(AUTO) 3.71 MIL/uL (4.0-5.2); WHITE BLOOD COUNT (AUTO) 10.2 K/uL (4.3-11.0)
[2022-01-27] MEDS: BLOOD SUGAR DIAGNOSTIC 1 EACH STRIP IN SCH ×4 (06:17→23:57)
[2022-01-27] MEDS: INSULIN REGULAR, HUMAN 100 UNIT/ML 3 ML VIAL SQ PRN ×2 (06:17→23:59)
[2022-01-27 06:35] LABS: CALCIUM, SERUM 8.7 mg/dL (8.5-10.1); CREATININE 0.7 mg/dL (0.6-1.3); MAGNESIUM 2.3 mg/dL (1.8-2.4); PHOSPHORUS 3.7 mg/dL (2.5-4.9); POTASSIUM 3.2 mmol/L (3.5-5.1)
--- NOTE | 2022-01-27 07:32 | NUR ---
telecommunications manager note Received patient in bed, resting comfortably non verbal, in no acute distress, on 2L via NC, SR on the monitor, HR is 79. FLOR PICC line, TALYA midline in plce l, with NS infusing at 125 ml/hr. Gtube in place positive placement noted with Glucerna at 50 ml/hr.off aT THIS TIME WILL RESUME AT 100O, FEEDING FOR 20 HOURS Padilla catheter draining to a clear, yellow output. Safety measures in place, bed is locked and at lowest position, bed alarm on, call light within reach of patient. Will continue to monitor and reassess.
[2022-01-27 08:00] VITALS: BP 129/68
[2022-01-27] MEDS: PROSOURCE / PROSTAT (PYXIS) 30 ML UDC GT SCH ×4 (09:04→21:00)
[2022-01-27] MEDS: PANTOPRAZOLE 40 MG/PACK PACK GT SCH ×2 (09:04→21:58)
[2022-01-27] MEDS: MUPIROCIN OINT 2% 22 GM TUBE NS SCH ×2 (09:05→21:58)
[2022-01-27] MEDS: DAKINS QUARTER STRENGTH (0.125%) 480 ML BOTTLE TOP SCH (09:05)
[2022-01-27] MEDS ORDERED: POTASSIUM CHLORIDE 20 MEQ POWDER PACKET GT SCH (10:30)
--- NOTE | 2022-01-27 10:30 | NUR ---
television audio engineer note turn reposition changed diaper still with black tarry stool ,will report to dr ortez
[2022-01-27 12:00] VITALS: BP 145/52
--- NOTE | 2022-01-27 14:48 | NUR ---
telephone sales agent note rounds made ,keep clean and on ivf as ordered keep hob elevated at all time
--- NOTE | 2022-01-27 15:50 | NUR ---
VIBRATION ANALYST NOTE CALLED TO DR BARRON NOTIFIED THAT PATIENT HAS STILL BLACK TARRY STOOL EARLIER SMALL AMT ,PER DR BARRON OK TO HOLD G TUBE FEEDING , STATED THAT WILL F\U WITH DR BOYCE GI , WILL CONT TO MONITOR
[2022-01-27 16:00] VITALS: BP 153/82
--- NOTE | 2022-01-27 16:42 | NUR ---
DIALYSIS CLINICAL MANAGER NOTE DR TANG AT BEDSIDE NOTIFIED THAT PATIT HAS CHEST CONGESTION ,ON IVF AT 125 ML STATED TO CHANGE TO D5 NST 75 ML PER HOUR AND CONT TO HOLD G TUBE FEEDING FOR NOW , STATED THAT WILL F\U WITH DR VU GRAHAM Addendum: 01/27/22 at 1812 by CALEB NICHOLAS RN also suggested to dr sparks may be Lasix to give due to congestion stated that will check it out
[2022-01-27] MEDS: IV D5/ 0.9% NACL 1,000 ML IV PRN (17:01)
--- NOTE | 2022-01-27 18:32 | NUR ---
CHIEF BANK EXAMINER NOTE PATIENT IN BED ALERT WITH CONFUSION, ON TELE MONITOR SR , WITH MICHAELS CATH TO GRAVITY WITH YELLOW COLOR URINE, G TUBE FEEDING ON HOLD FOR NOW, LAST BM NOTED WITH LIGHT GREENISH COLOR BM. KEEP CLEAN DRY , RT UPPER ARM PICC LINE AND LT UPPER ARM MID LINE IN PLACE, ON IVF ORDERED , BED IN LOWEST AND LOCKED POSITION ,CALL LIGHT WITHIN REACH , SAFETY MEASURE PROVIDED ,WILL CONT TO MONITOR CLOSELY
[2022-01-27 20:00] VITALS: BP 138/70
[2022-01-27] MEDS ORDERED: ACETAMINOPHEN 650 MG/20.3 ML UDC GT PRN (20:30)
[2022-01-27] MEDS ORDERED: ACETAMINOPHEN ES 500 MG TABLET GT PRN (20:30)
--- NOTE | 2022-01-27 23:25 | NUR ---
DOG WALKER OPENING NOTE PT RECEIVED IN BED, A&O X0, NON-VERBAL, OPENS EYES. PT ON 2L NC WITH CURRENT O2SAT OF 100%; NO S/S OF RESP DISTRESS, NO SOB OR COUGH, NON-LABORED AND EQUAL BREATHING. PT ATTACHED TO EXTERNAL MONITOR, SR WITH HR OF 82. MICHAELS INTACT AND PATENT, DRAINING CLEAR AND YELLOW URINE. FLOR PICC LINE AND TALYA MIDLINE INTACT AND PATENT, D5NS INFUSING AT 75 ML/HR. GTD C/D/I; GT ON HOLD D/T BLACK STOOL. BED IN LOWEST POSITION, CALL LIGHT WITHIN REACH, SIDE RAILS UP X3. WILL CONTINUE TO MONITOR THROUGHOUT THE NIGHT.
[2022-01-28] VITALS: BP 144/66
[2022-01-28] MEDS: PIPERACILLIN /TAZOBACTAM 3.375 G in IV D5W 100 ML IV SCH ×3 (01:42→17:52)
[2022-01-28 04:00] VITALS: BP 137/67
[2022-01-28] MEDS: IV D5/ 0.9% NACL 1,000 ML IV PRN ×2 (05:03→21:52)
[2022-01-28] MEDS: VANCOMYCIN HCL 0.75 GM in IV D5W 250 ML IV SCH (05:05)
[2022-01-28] MEDS: BLOOD SUGAR DIAGNOSTIC 1 EACH STRIP IN SCH ×4 (05:19→23:38)
[2022-01-28] MEDS: INSULIN REGULAR, HUMAN 100 UNIT/ML 3 ML VIAL SQ PRN ×2 (05:35→23:40)
--- NOTE | 2022-01-28 06:45 | NUR ---
NURSING MANAGER CLOSING NOTE PT REMAINS IN BED, NON-VERBAL. CONTINUES TO BE ON 2L NC WITH O2SAT RANGING FROM 98%-100% THROUGHOUT THE NIGHT; NO S/S OF RESP DISTRESS, NO SOB, NON-LABORED AND EQUAL BREATHING; NOTED TO HAVE CHEST CONGESTION. ATTACHED TO EXTERNAL MONITOR, SR WITH HR RANGING FROM 75-82. MICHAELS INTACT AND PATENT, DRAINING CLEAR AND YELLOW URINE. FLOR PICC AND TALYA MIDLINE INTACT AND PATENT, FLUSHES EASILY WITH NO RESISTANCE; D5NS INFUSING AT 75 ML/HR. PT NOTED TO HAVE VERY SMALL BM THAT WAS WATERY IN CONSISTENCY AND BROWN IN COLOR; NO BLACK TARRY STOOL NOTED. WOUNDS CLEANSED AND NEW DRESSINGS APPLIED. ALL DUE MEDS ADMINISTERED DURING THE NIGHT. BED IN LOWEST POSITION, CALL LIGHT WITHIN REACH, SIDE RAILS UP X3. WILL ENDORSE TO DAYSHIFT NURSE TO CONTINUE CARE.
[2022-01-28 06:50] LABS: BASOPHILS % (AUTO) 0.5 % (0.0-2.0); EOSINOPHILS % (AUTO) 1.3 % (0.0-6.0); HEMATOCRIT 29 % (33-45); HEMOGLOBIN 9.1 g/dL (11.5-14.8); LYMPHOCYTES # (AUTO) 1.5 K/uL (0.8-4.8); MEAN CORPUSCULAR HGB CONC 31 g/dl (31.0-36.0); MEAN CORPUSCULAR VOLUME 86 fL (82-100); MONOCYTES # (AUTO) 0.6 K/uL (0.1-1.30); MONOCYTES % (AUTO) 8.4 % (2.0-12.0); NEUTROPHILS # (AUTO) 5.5 K/uL (1.8-8.9); NEUTROPHILS % (AUTO) 70.8 % (43.0-81.0); PLATELET COUNT (AUTO) 363 K/uL (150-450); RED BLOOD CELL COUNT(AUTO) 3.41 MIL/uL (4.0-5.2); WHITE BLOOD COUNT (AUTO) 7.7 K/uL (4.3-11.0)
[2022-01-28 07:13] LABS: CALCIUM, SERUM 8.4 mg/dL (8.5-10.1); CARBON DIOXIDE 23 mmol/L (21-32); CHLORIDE 110 mmol/L (98-107); CREATININE 0.6 mg/dL (0.6-1.3); GLUCOSE 198 mg/dL (74-106); MAGNESIUM 2.1 mg/dL (1.8-2.4); PHOSPHORUS 2.9 mg/dL (2.5-4.9); SODIUM SERUM 141 mmol/L (136-145); UREA NITROGEN, BLOOD 7 mg/dL (7-18)
--- NOTE | 2022-01-28 07:30 | NUR ---
BAGGAGEMAN OPENING NOTES: RECEIVED PATIENT IN BED, ASLEEP BUT EASILY AROUSES TO VOICE AND TACTILE STIMULI. PATIENT IS ABLE TO OPEN HER EYES BUT NON VERBAL. NO RESPIRATORY DISTRESS NOTED AT THIS TIME. PATIENT IS ON OXYGEN @ 2L/MIN VIA N/C WITH OXYGEN SATURATION OF 100%. ON SR ON TELE MONITOR WITH HR OF 72. HAS IV ACCESS ON PICC LINE, PATENT AND INTACT AND ALSO HAS LEFT UPPER MIDLINE INFUSING WITH D5NS @ 75 ML/HR, NO S/S INFILTRATION NOTED ON THE IV SITE. G-TUBE PATENT, IN PLACE, NO RESIDUAL NOTED. FEEDING STILL ON HOLD PER FURTHER CONSULTATION WITH DR. BOYCE. BED LOCKED AND IN LOWEST POSITION. MICHAELS CATHETER INTACT, DRAINING WITH YELLOW COLORED URINE, NO HEMATURIA AND NO SEDIMENTATION NOTED. SR UP X 2. ALL SAFETY MEASURES IN PLACE. CALL LIGHT WITHIN REACH. BED LOCKED AND IN LOWEST POSITION. WILL CONTINUE TO MONITOR PATIENT THROUGHOUT SHIFT.
[2022-01-28 08:00] VITALS: BP 148/66
--- NOTE | 2022-01-28 08:04 | NUR ---
SPOKE WITH ERIC AT THE PHARMACY AND WAS INFORMED TO GIVE VANCO, LAST TROUGH LEVEL WAS 18 ON 01/26/22
[2022-01-28] MEDS ORDERED: Medication Not On Formulary EA (Cran/Vitc/Mannose/Inulin/Brom (Uti-Stat Liquid) 3,875 MG GT SCH (09:00)
[2022-01-28] MEDS: MUPIROCIN OINT 2% 22 GM TUBE NS SCH ×2 (09:02→21:54)
[2022-01-28] MEDS: DAKINS QUARTER STRENGTH (0.125%) 480 ML BOTTLE TOP SCH (09:02)
[2022-01-28] MEDS: PANTOPRAZOLE 40 MG/PACK PACK GT SCH ×2 (09:03→21:49)
[2022-01-28] MEDS: MULTIVIT W/MINERALS 1 TAB TABLET GT SCH (09:03)
[2022-01-28] MEDS: ACIDOPHILUS/BULGARICUS 1 EACH TAB.CHEW GT SCH (09:03)
[2022-01-28] MEDS: PROSOURCE / PROSTAT (PYXIS) 30 ML UDC GT SCH ×2 (09:03→16:37)
[2022-01-28] MEDS: AMLODIPINE BESYLATE 5 MG TABLET GT SCH (09:03)
[2022-01-28] MEDS: POTASSIUM CHLORIDE 20 MEQ POWDER PACKET GT SCH ×3 (11:39→13:46)
[2022-01-28 12:00] VITALS: BP 155/66
[2022-01-28 16:00] VITALS: BP 150/70
--- NOTE | 2022-01-28 16:41 | NUR ---
RECEIVED CALL FROM THE PHARMACY AND WAS INFORMED TO GIVE VANCO AT A LOWER DOSE AT 9 PM
--- NOTE | 2022-01-28 18:27 | NUR ---
STOOL SAMPLE OBTAINED FOR OB, CALLED LAB, SPOKE WITH BELKYS AND WILL DIGITAL STRATEGY MANAGER THE SPECIMEN LATER TODAY.
--- NOTE | 2022-01-28 18:40 | NUR ---
WELDER TECH CLOSING NOTES: PATIENT IN BED, AWAKE, ALERT, NON VERBAL. ON SR WITH HR OF 71 ON TELE MONITOR. NO SOB NOTED THE ENTIRE SHIFT. NO C/O PAIN OR DISCOMFORT AND REMAINS AFEBRILE THE WHOLE SHIFT. WILL ENDORSE TO NEXT SHIFT NURSE FOR CONTINUITY OF CARE.
[2022-01-28 20:00] VITALS: BP 131/61
[2022-01-28] MEDS: VANCOMYCIN 500 MG in IV D5W 100ml IV SCH (21:49)
--- NOTE | 2022-01-28 22:42 | NUR ---
AIR VICE MARSHAL OPENING NOTE PT RECEIVED IN BED, AWAKE, NON-VERBAL, UNDERSTANDS MALTESE AND ABLE TO FOLLOW SIMPLE COMMANDS. PT ON 2L NC WITH CURRENT O2SAT OF 98%; PT NOTED TO HAVE PRODUCTIVE COUGH, PROVIDED PT WITH ORAL CARE; NO OTHER S/S OF RESP DISTRESS, NO SOB, NON-LABORED AND EQUAL BREATHING. PT ATTACHED TO EXTERNAL MONITOR, SR WITH HR OF 71. MICHAELS INTACT AND PATENT, DRAINING CLEAR AND YELLOW URINE. GTD C/D/I; FEEDING STILL ON HOLD FOR CONCERN OF GI BLEED. IV ACCESS ON FLOR PICC AND TALYA MIDLINE; INTACT AND PATENT, FLUSHES EASILY WITH NO RESISTANCE; D5NS INFUSING AT 75 ML/HR. BED IN LOWEST POSITION, CALL LIGHT WITHIN REACH, SIDE RAILS UP X3. WILL CONTINUE TO MONITOR THROUGHOUT THE NIGHT.
[2022-01-29] VITALS: BP 145/59
[2022-01-29] MEDS: PIPERACILLIN /TAZOBACTAM 3.375 G in IV D5W 100 ML IV SCH ×3 (01:32→17:00)
[2022-01-29 04:00] VITALS: BP 158/69
[2022-01-29 06:13] LABS: BASOPHILS % (AUTO) 0.5 % (0.0-2.0); EOSINOPHILS % (AUTO) 1.4 % (0.0-6.0); HEMATOCRIT 32 % (33-45); LYMPHOCYTES % (AUTO) 21.2 % (20.0-44.0); MEAN CORPUSCULAR HGB CONC 31 g/dl (31.0-36.0); MEAN CORPUSCULAR VOLUME 86 fL (82-100); MONOCYTES # (AUTO) 0.8 K/uL (0.1-1.30); MONOCYTES % (AUTO) 8.8 % (2.0-12.0); NEUTROPHILS # (AUTO) 6.5 K/uL (1.8-8.9); NEUTROPHILS % (AUTO) 68.1 % (43.0-81.0); PLATELET COUNT (AUTO) 378 K/uL (150-450); RED BLOOD CELL COUNT(AUTO) 3.76 MIL/uL (4.0-5.2); WHITE BLOOD COUNT (AUTO) 9.6 K/uL (4.3-11.0)
[2022-01-29] MEDS: BLOOD SUGAR DIAGNOSTIC 1 EACH STRIP IN SCH ×3 (06:13→17:18)
[2022-01-29] MEDS: INSULIN REGULAR, HUMAN 100 UNIT/ML 3 ML VIAL SQ PRN ×3 (06:15→17:17)
--- NOTE | 2022-01-29 07:23 | NUR ---
INPATIENT SERVICES RN CLOSING NOTE PT REMAINS IN BED, ALERT, BUT NON-VERBAL SHAKES HER HEAD YES OR NO WHEN SPOKEN TO IN [place]. CONTINUES TO BE ON 2L NC WITH O2SAT IN THE HIGH 90S THROUGHOUT THE NIGHT; NO S/S OF RESP DISTRESS, NO SOB, NON-LABORED AND EQUAL BREATHING; NOTED TO HAVE CHEST CONGESTION AND PRODUCTIVE COUGH. ATTACHED TO EXTERNAL MONITOR, SR WITH HR RANGING FROM 75-82; NOTED TO BE SB AT ONE TIME WITH HR AT 48. MICHAELS INTACT AND PATENT, DRAINING CLEAR AND YELLOW URINE. FLOR PICC AND TALYA MIDLINE INTACT AND PATENT, FLUSHES EASILY WITH NO RESISTANCE; D5NS INFUSING AT 75 ML/HR. PT HAD BM THAT WAS BROWN IN COLOR; NO BLACK TARRY STOOL NOTED. WOUNDS CLEANSED AND NEW DRESSINGS APPLIED. ALL DUE MEDS ADMINISTERED DURING THE NIGHT. BED IN LOWEST POSITION, CALL LIGHT WITHIN REACH, SIDE RAILS UP X3. WILL ENDORSE TO DAYSHIFT NURSE TO CONTINUE CARE.
--- NOTE | 2022-01-29 07:30 | NUR ---
RN OPENING TELE NOTES: RECEIVED PATIENT IN BED, ASLEEP BUT EASILY AROUSES TO VOICE AND SOUND. NO RESPIRATORY DISTRESS NOTED. ON OXYGEN @ 2L/MIN VIA N/C WITH OXYGEN SATURATION OF 98%. ON SR ON TELE MONITOR WITH HR OF 68. IV SITE ON LEFT UPPER ARM MIDLINE INFUSING WITH D5 NS @ 75 ML/HR, NO S/S INFILTRATION NOTED. PICC LINE ON RIGHT UPPER ARM INTACT, PATENT AND FLUSHES WELL. G-TUBE IN PLACE, NO RESIDUAL AND FLUSHES WELL. MICHAELS CATHETER INTACT, DRAINING WITH YELLOW COLORED URINE.. ALL SAFETY MEASURES IN PLACE. BED LOCKED AND IN LOWEST POSITION. CALL LIGHT WITHIN REACH. WILL CONTINUE TO MONITOR PATIENT THROUGHOUT SHIFT.
[2022-01-29 07:34] LABS: CALCIUM, SERUM 8.9 mg/dL (8.5-10.1); CARBON DIOXIDE 22 mmol/L (21-32); CHLORIDE 109 mmol/L (98-107); CREATININE 0.6 mg/dL (0.6-1.3); GLUCOSE 134 mg/dL (74-106); POTASSIUM 3.2 mmol/L (3.5-5.1); SODIUM SERUM 142 mmol/L (136-145); UREA NITROGEN, BLOOD 9 mg/dL (7-18)
[2022-01-29 08:00] VITALS: BP 153/76
[2022-01-29 08:02] LABS: PHOSPHORUS 2.6 mg/dL (2.5-4.9)
[2022-01-29] MEDS: MULTIVIT W/MINERALS 1 TAB TABLET GT SCH (09:37)
[2022-01-29] MEDS: ACIDOPHILUS/BULGARICUS 1 EACH TAB.CHEW GT SCH (09:37)
[2022-01-29] MEDS: PANTOPRAZOLE 40 MG/PACK PACK GT SCH ×2 (09:37→20:49)
[2022-01-29] MEDS: AMLODIPINE BESYLATE 5 MG TABLET GT SCH (09:42)
[2022-01-29] MEDS: DAKINS QUARTER STRENGTH (0.125%) 480 ML BOTTLE TOP SCH (09:45)
[2022-01-29] MEDS: MUPIROCIN OINT 2% 22 GM TUBE NS SCH (09:45)
[2022-01-29] MEDS: VANCOMYCIN 500 MG in IV D5W 100ml IV SCH ×2 (09:46→20:49)
[2022-01-29] MEDS: PROSOURCE / PROSTAT (PYXIS) 30 ML UDC GT SCH ×2 (09:47→16:36)
[2022-01-29] MEDS ORDERED: POTASSIUM CHLORIDE 20 MEQ POWDER PACKET GT ONE (11:00)
[2022-01-29] MEDS: IV D5/ 0.9% NACL 1,000 ML IV PRN (11:10)
[2022-01-29 12:00] VITALS: BP 148/69
--- NOTE | 2022-01-29 13:07 | NUR ---
PATIENT WAS NOTED TO HAVE BROWNISH SOFT STOOL, NO DARK TARRY STOOL SINCE YESTERDAY. DR HIGH ORDERED TO RESTART G-TUBE FEEDING AND START WITH 25 CC/HR, INCREASE 5 ML/HR EVERY 2 HOURS WITH MAXIMUM OF 50 ML/HR. ORDER NOTED AND CARRIED OUT.
[2022-01-29] MEDS ORDERED: GLUCERNA 1.2 1,000 ML BOTTLE GT PRN (13:30)
[2022-01-29 16:00] VITALS: BP 158/81
--- NOTE | 2022-01-29 17:50 | NUR ---
DR. SPEARS MADE ROUNDS AND VISITED THE PATIENT
--- NOTE | 2022-01-29 18:31 | NUR ---
MODERN LANGUAGES PROFESSOR CLOSING NOTES: PATIENT IN BED, ASLEEP BUT EASILY AROUSES TO VOICE AND TOUCH. PATIENT REMAINS STABLE THE ENTIRE SHIFT. NO RESPIRATORY DISTRESS NOTED. ON SR AT THIS TIME ON TELE MONITOR WITH HR OF 82. ON G-TUBE FEEDING OF GLUCERNA 1.2 @ 35 ML/HR. PATIENT IS TOLERATING THE FEEDING. G-TUBE IN PLACE, NO RESIDUAL AND FLUSHES WELL. BED LOCKED AND IN LOWEST POSITION. ALL NEEDS MET AND ANTICIPATED. HOB KEPT ELEVATED. CALL LIGHT WITHIN REACH. WILL ENDORSE TO NEXT SHIFT NURSE FOR CONTINUITY OF CARE.
[2022-01-29] MEDS: GLUCERNA 1.2 1,000 ML BOTTLE GT PRN (19:14)
[2022-01-29 20:00] VITALS: BP 127/76
--- NOTE | 2022-01-29 20:00 | NUR ---
MIXER OPERATOR RAW SALT NOTE PT IN BED AWAKE. NON VERBAL. NO SOB, NO DISTRESS OR DISCOMFORT NOTED. NO S/S OF PAIN NOTED. ON O2 2L VIA N/C O2 SAT 98%. ON TELE MONITOR SR HR 82. F/C INTACT AND PATENT DRAINING YELLOWISH COLOR URINE. GTF INFUSING WELL AT 40ML/HR, 0 ML RESIDUAL NOTED. IVF D5NS INFUSING AT 75 ML/HR, NO S/S OF INFILTRATION NOTED TALYA MIDLINE. KEPT HER DRY AND CLEAN. ALL NEEDS ATTENDED. VSS. REPOSITION HER Q2H. ALL NEEDS ATTENDED. CONTINUE TO MONITOR HER.
[2022-01-30] VITALS: BP 139/71
[2022-01-30] MEDS: BLOOD SUGAR DIAGNOSTIC 1 EACH STRIP IN SCH ×3 (00:49→11:18)
[2022-01-30] MEDS: PIPERACILLIN /TAZOBACTAM 3.375 G in IV D5W 100 ML IV SCH ×2 (01:41→10:07)
[2022-01-30 04:00] VITALS: BP 139/71
--- NOTE | 2022-01-30 06:36 | NUR ---
TOWN PLANNER NOTE PT IN BED AWAKE. NO DISTRESS OR DISCOMFORT NOTED, NO S/S OF PAIN NOTED. GTF GLUCERNA INFUSING AT 50 ML/HR, 0 ML RESIDUAL NOTED. KEPT HER DRY AND CLEAN. SIDE RAILS UP X 2 WILL ENDORSE TO DAY SHIFT NURSE FOR CONTINUE TO CARE.
--- NOTE | 2022-01-30 07:15 | NUR ---
TOBACCO FARMWORKER NOTE PT IN BED AWAKE. NO DISTRESS OR DISCOMFORT NOTED, NO S/S OF PAIN NOTED. ON 2 LITERS NASAL CANULA. GTF GLUCERNA INFUSING AT 50 ML/HR. MICHAELS CATHETER DRAINING URINE. SIDE RAILS UP X 2 WILL CONTINUE PLAN OF CARE AND ANTICIPATE NEEDS.
[2022-01-30 07:35] LABS: BASOPHILS # (AUTO) 0.1 K/uL (0.0-0.2); BASOPHILS % (AUTO) 0.7 % (0.0-2.0); EOSINOPHILS % (AUTO) 2.5 % (0.0-6.0); HEMATOCRIT 29 % (33-45); HEMOGLOBIN 9.4 g/dL (11.5-14.8); LYMPHOCYTES # (AUTO) 1.5 K/uL (0.8-4.8); LYMPHOCYTES % (AUTO) 16.7 % (20.0-44.0); MEAN CORPUSCULAR HGB CONC 32 g/dl (31.0-36.0); MEAN CORPUSCULAR VOLUME 84 fL (82-100); MONOCYTES # (AUTO) 0.6 K/uL (0.1-1.30); MONOCYTES % (AUTO) 6.4 % (2.0-12.0); NEUTROPHILS # (AUTO) 6.5 K/uL (1.8-8.9); NEUTROPHILS % (AUTO) 73.7 % (43.0-81.0); PLATELET COUNT (AUTO) 420 K/uL (150-450); RED BLOOD CELL COUNT(AUTO) 3.52 MIL/uL (4.0-5.2); WHITE BLOOD COUNT (AUTO) 8.7 K/uL (4.3-11.0)
[2022-01-30 08:00] VITALS: BP 148/78
[2022-01-30] MEDS: MULTIVIT W/MINERALS 1 TAB TABLET GT SCH (08:43)
[2022-01-30] MEDS: VANCOMYCIN 500 MG in IV D5W 100ml IV SCH (08:43)
[2022-01-30] MEDS: PROSOURCE / PROSTAT (PYXIS) 30 ML UDC GT SCH (08:43)
[2022-01-30] MEDS: PANTOPRAZOLE 40 MG/PACK PACK GT SCH (08:43)
[2022-01-30] MEDS: ACIDOPHILUS/BULGARICUS 1 EACH TAB.CHEW GT SCH (08:43)
[2022-01-30] MEDS: DAKINS QUARTER STRENGTH (0.125%) 480 ML BOTTLE TOP SCH (08:44)
[2022-01-30] MEDS: AMLODIPINE BESYLATE 5 MG TABLET GT SCH (08:44)
[2022-01-30 09:10] LABS: ALBUMIN 2.2 g/dL (3.4-5.0); BILIRUBIN,TOTAL 0.2 mg/dL (0.2-1.0); CALCIUM, SERUM 8.8 mg/dL (8.5-10.1); CREATININE 0.6 mg/dL (0.6-1.3); TOTAL PROTEIN, SERUM 6.9 g/dL (6.4-8.2)
[2022-01-30 10:24] LABS: POTASSIUM 2.7 mmol/L (3.5-5.1)
[2022-01-30] MEDS ORDERED: NUT.237L45 GT (10:35)
[2022-01-30] MEDS ORDERED: PIPE3.379 IV (10:35)
[2022-01-30] MEDS ORDERED: POTA20TA83 PO (10:35)
[2022-01-30] MEDS ORDERED: VANC500F2 IV (10:35)
[2022-01-30] MEDS ORDERED: PANT40SU2 GT (10:35)
[2022-01-30] MEDS ORDERED: POTASSIUM CHLORIDE 20 MEQ POWDER PACKET GT ONE ×2 (11:00→14:00)
[2022-01-30] MEDS: INSULIN REGULAR, HUMAN 100 UNIT/ML 3 ML VIAL SQ PRN (11:17)
[2022-01-30 12:00] VITALS: BP 139/80
--- NOTE | 2022-01-30 14:58 | NUR ---
PATIENT HAS BEEN DISCHARGED FROM HOSPITAL. LEFT UPPER ARM MIDLINE DISCONTINUED. RIGHT UPPER ARM PICC LINE WILL REMAIN FOR CONTINUED ANTIBIOTIC THERAPY. MICHAELS CATHETER DISCONTINUED. ID BAND REMOVED. HAND OFF REPORT GIVEN TO AMBULANCE CREW. PATIENT LEFT FACILITY IN STABLE CONDITION.
== END 2022-01-30 14:33 | DRG 710 ==
LOC: ER 19:23 → TELE-TD 23:26 → TELE1 01-22 01:58 → MEDSG1 01-30 09:42
PROVIDERS: ADMIT Nurse Practitioner Acute Care; ATTEND Nurse Practitioner Acute Care
PROC: 05HA33Z Insertion of Infusion Device into Left Brachial Vein, Percutaneous Approach (ICD-10-PCS; 2022-01-22)
PROC: 0DJ08ZZ Inspection of Upper Intestinal Tract, Via Natural or Artificial Opening Endoscopic (ICD-10-PCS; 2022-01-23)
PROC: 30233N1 Transfusion of Nonautologous Red Blood Cells into Peripheral Vein, Percutaneous Approach (ICD-10-PCS; principal; 2022-01-24)
PROC: 0KBN0ZZ Excision of Right Hip Muscle, Open Approach (ICD-10-PCS; 2022-01-24)
PROC: 0KBP0ZZ Excision of Left Hip Muscle, Open Approach (ICD-10-PCS; 2022-01-24)
DX: A41.9 Sepsis, unspecified organism (principal); J69.0 Pneumonitis due to inhalation of food and vomit; G93.40 Encephalopathy, unspecified; L89.154 Pressure ulcer of sacral region, stage 4; E87.20 Acidosis, unspecified; E44.0 Moderate protein-calorie malnutrition; N17.9 Acute kidney failure, unspecified; D68.59 Other primary thrombophilia; I69.354 Hemiplegia and hemiparesis following cerebral infarction affecting left non-dominant side; E88.09 Other disorders of plasma-protein metabolism, not elsewhere classified; N39.0 Urinary tract infection, site not specified; E86.0 Dehydration; Z20.822 Contact with and (suspected) exposure to COVID-19; K44.9 Diaphragmatic hernia without obstruction or gangrene; E11.9 Type 2 diabetes mellitus without complications; I10 Essential (primary) hypertension; B96.89 Other specified bacterial agents as the cause of diseases classified elsewhere; D64.9 Anemia, unspecified; R13.10 Dysphagia, unspecified; Z93.1 Gastrostomy status; Z79.02 Long term (current) use of antithrombotics/antiplatelets; Y95 Nosocomial condition; Z74.01 Bed confinement status; R64 Cachexia; M20.41 Other hammer toe(s) (acquired), right foot; M20.42 Other hammer toe(s) (acquired), left foot; F03.90 Unspecified dementia, unspecified severity, without behavioral disturbance, psychotic disturbance, mood disturbance, and anxiety; E78.5 Hyperlipidemia, unspecified; L89.896 Pressure-induced deep tissue damage of other site; M62.50 Muscle wasting and atrophy, not elsewhere classified, unspecified site; F09 Unspecified mental disorder due to known physiological condition; K21.01 Gastro-esophageal reflux disease with esophagitis, with bleeding; I65.23 Occlusion and stenosis of bilateral carotid arteries
CPT/HCPCS: 36415; 71045-TC; 80048-TC; 80053-TC; 80076-TC; 80202-TC; 81001; 82962-TC; 83605-TC; 83735-TC; 83880; 84100-TC; 84484-TC; 85025-TC; 85027-TC; 85730-TC; 86706; 86803; 86850-TC; 87040-TC; 87081-TC; 87086-TC; 87186-TC; 87340; 87806; 94799-TC; A4217; A4624; A6253; A6403; C9113; C9803; G0378; J1815; J2543; J2704; J3370; J3475; J3480; J3490; J7030; J7042; J7050; J7060; P9016

== ENCOUNTER 2022-04-20 07:48 | Inpatient (IN) | payer MEDICAID ==
[~2022-04-20] VITALS: Ht 165.1 cm; Wt 52.6 kg
[~2022-04-20 07:48] MED LIST: ACET-2605 GT; ACET650S26 GT; ACID1TAB12 GT; AMIN30LI2 GT; AMLO-212 GT; ASPI-1169 GT; CLOP75TA15 GT; CRAN3875 GT; HYDR-4303 GT; INSU100V39 SQ; METF-441 GT; MULT-447 GT; NUT.237L30 GT; NUT.237L45 GT; PANT40SU2 GT; PIPE3.379 IV; POTA20TA83 PO; SENN-261 GT; SODI473S8 TD; VANC500F2 IV
--- NOTE | 2022-04-20 07:55 | NUR ---
SEEN BY DR SHEA AT BEDSIDE
--- NOTE | 2022-04-20 08:02 | NUR ---
[id number] FOR LOW O2SAT (88% ON NC),DISCHARGED YESTERDAY FROM [facility],ADMITTED FOR AMS. PT O2 SAT AT 100% ON NC 6L.
--- NOTE | 2022-04-20 08:03 | NUR ---
ESTABLISHED IV ON RIGHT HAND 20G. 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
--- NOTE | 2022-04-20 08:06 | NUR ---
MOVE SHEET SUBMITTED.
--- NOTE | 2022-04-20 08:07 | NUR ---
URINE SAMPLE AND COVID SWAB OBTAINED AND SENT TO LAB
[2022-04-20 08:11] LABS: HEMATOCRIT 22 % (33-45); HEMOGLOBIN 7.1 g/dL (11.5-14.8); MEAN CORPUSCULAR HGB CONC 32 g/dl (31.0-36.0); MEAN CORPUSCULAR VOLUME 81 fL (82-100); PLATELET COUNT (AUTO) 531 K/uL (150-450); RED BLOOD CELL COUNT(AUTO) 2.75 MIL/uL (4.0-5.2); WHITE BLOOD COUNT (AUTO) 7.2 K/uL (4.3-11.0)
[2022-04-20 08:27] LABS: ALANINE AMINOTRANSFERASE 16 U/L (12-78); ALKALINE PHOSPHATASE 101 U/L (46-116); ASPARTATE AMINOTRANSFERASE 18 U/L (15-37); BILIRUBIN,DIRECT 0.1 mg/dL (0.0-0.2); BILIRUBIN,TOTAL 0.2 mg/dL (0.2-1.0); CALCIUM, SERUM 8.3 mg/dL (8.5-10.1); CARBON DIOXIDE 26 mmol/L (21-32); CHLORIDE 106 mmol/L (98-107); CREATININE 0.4 mg/dL (0.6-1.3); GLUCOSE 154 mg/dL (74-106); POTASSIUM 3.1 mmol/L (3.5-5.1); SODIUM SERUM 139 mmol/L (136-145); UREA NITROGEN, BLOOD 5 mg/dL (7-18)
[2022-04-20 08:43] LABS: ALBUMIN 1.4 g/dL (3.4-5.0)
[2022-04-20 08:45] LABS: BILIRUBIN,URINE NEGATIVE (NEGATIVE); COLOR,URINE YELLOW (YELLOW); LEUKOCYTE ESTERASE ,URINE 3+ (NEGATIVE); NITRITE, URINE NEGATIVE (NEGATIVE); PROTEIN,URINE 1+ mg/dl (NEGATIVE); UGLUCOSE NEGATIVE (NEGATIVE); UROBILINOGEN,URINE 0.2 EU/dL (0.2)
[2022-04-20 08:47] LABS: ABG BASE EXCESS 2.2 mmol/L; ABG PCO2 31.7 mmHg (35.0-45.0); ABG PH 7.516 (7.350-7.450); ABG PO2 90.7 mmHg (75.0-100.0); COHb 0.4 % (0.5-1.5); MetHb 0.4 % (0.0-1.5); O2Hb 96.2 % (94.0-97.0); SITE, ABG Left Radial; VENT MODE, BG 5LPM NC
[2022-04-20 08:49] LABS: SERUM AMMONIA 21 umol/L (11-32)
[2022-04-20 08:51] LABS: BACTERIA,URINE Few /HPF (None Seen); SQUAMOUS EPITHELIAL CELL,UR Few /HPF (None Seen)
--- NOTE | 2022-04-20 08:52 | NUR ---
[facility] CALLED HEAV[facility] D[facility]Y DIESEL MECHANIC PAGED.
[2022-04-20] MEDS ORDERED: PANTOPRAZOLE 40 MG VIAL ONE (08:54)
[2022-04-20] MEDS ORDERED: PANTOPRAZOLE 40 MG VIAL IV ONE (09:00)
[2022-04-20] MEDS: PANTOPRAZOLE 40 MG VIAL IV SCH ×2 (09:00→17:11)
[2022-04-20] MEDS ORDERED: POTASSIUM CHLORIDE 20 MEQ TAB.PRT.SR PO ONE ×2 (09:00→10:24)
[2022-04-20] MEDS ORDERED: MEROPENEM 1,000 MG in IV NS 0.9% 100 ML IV ONE (09:00)
[2022-04-20] MEDS ORDERED: Medication Not On Formulary EA (Cran/Vitc/Mannose/Inulin/Brom (Uti-Stat Liquid) 3,875 MG GT SCH (09:00)
--- NOTE | 2022-04-20 09:05 | NUR ---
PROTONIX IV ALREADY GIVEN
--- NOTE | 2022-04-20 09:05 | NUR ---
DR SHEA SPEAKING W/ DR ALMEIDA
[2022-04-20 09:11] LABS: THYROID STIMULATING HORMONE 4.106 uIU/mL (0.358-3.74)
[2022-04-20 09:18] LABS: HEMOGLOBIN 7.2 g/dL (11.5-14.8)
[2022-04-20] MEDS ORDERED: ONDANSETRON HCL/PF 4 MG/2 ML VIAL IVP PRN (09:30)
[2022-04-20] MEDS ORDERED: *INSULIN REGULAR(HUMULIN R)HUM 100 UNIT/ML VIAL SQ PRN (09:30)
[2022-04-20] MEDS ORDERED: MAGNESIUM HYDROXIDE 30 ML UDC PO PRN (09:30)
[2022-04-20] MEDS ORDERED: MORPHINE SULFATE INJ 2 MG/ML DISP.SYRIN IV PRN (09:30)
[2022-04-20] MEDS ORDERED: IV NS 0.9% 1,000 ML IV PRN (09:30)
[2022-04-20] MEDS ORDERED: ALBUTEROL FS 2.5 MG/0.5 ML VIAL.NEB NEB PRN (09:30)
[2022-04-20] MEDS ORDERED: DEXTROSE 50%-WATER 50 ML DISP.SYRIN IV PRN (09:30)
[2022-04-20] MEDS ORDERED: hydrALAZINE HCL IV 20 MG VIAL IV PRN (09:30)
[2022-04-20] MEDS ORDERED: AMLODIPINE BESYLATE 5 MG TABLET ONE (10:23)
[2022-04-20] MEDS ORDERED: ACIDOPHILUS/BULGARICUS 1 EACH TAB.CHEW ONE (10:24)
[2022-04-20] MEDS: ACIDOPHILUS/BULGARICUS 1 EACH TAB.CHEW GT SCH (10:30)
[2022-04-20] MEDS: AMLODIPINE BESYLATE 5 MG TABLET GT SCH (10:30)
--- NOTE | 2022-04-20 10:40 | NUR ---
bed assigned 109. admitting aware
--- NOTE | 2022-04-20 10:54 | NUR ---
PT REPORT GIVEN TO JULIA ELLIS
[2022-04-20] MEDS: FLUCONAZOLE IN NS 100 MG in PREMIX 1 EA IV SCH ×2 (11:00)
[2022-04-20] MEDS ORDERED: ALBUMIN 25% 100 ML IV ONE (11:10)
[2022-04-20] MEDS: ALBUMIN 25% 25 GM in PREMIX 1 EA IV SCH ×2 (11:15→23:51)
[2022-04-20 12:00] VITALS: BP 151/72
[2022-04-20] MEDS ORDERED: IPRATROPIUM/ALBUTEROL INHALER IH SCH (12:00)
[2022-04-20] MEDS: BLOOD SUGAR DIAGNOSTIC 1 EACH STRIP VI SCH ×3 (12:00→22:24)
--- NOTE | 2022-04-20 12:00 | NUR ---
RN ADMITTING NOTE RECEIVED PATIENT VIA [facility]AN[facility] FROM ER. ADMITTING DIAGNOSIS: RESPIRATORY DISTRESS, 77 Y.O. FEMALE, FULL CODE, RESIDES SNF "[facility]", BEDBOUND, LEFT HEMIPARESIS, QUADRIPLEGIC, APHASIC, , G TUBE FEEDS, CONFINED TO BED, NOT RESPONDING TO STIMULI. PT BEEN DISCHARGED FROM [facility] YESTERDAY, HAS MICHAELS CATHETER IN PLACE AND LEFT UE #20G MIDLINE IV ACCESS, APPARENTLY INSERTED IN [facility]. REASON FOR REHOSPITALIZATION IS INABILITY TO MAINTAIN O2 SATURATION ABOVE 80%. UPON ADMITTING PT IS ON 4L O2 VIA NC SAT 96%. PT HAS SACRAL PRESSURE WOUND, RIGHT HIP SKIN BREAKDOWN, LEFT FOOT HEALING WOUND, RIGHT HAND BLACK RISSA, WOUND CARE PERFORMED, DRESSING CHANGED, PICS IN A PATIENTS CHART.
--- NOTE | 2022-04-20 12:06 | NUR ---
PT TRANSFERRED TO 109 VIA [facility] ACLS PROTOCOL. WARM HANDOFF GIVEN TO JULIA ELLIS.
[2022-04-20 13:12] LABS: BAND % (MANUAL) 5 % (0.0-5.0); BASOPHILS % (MANUAL) 0 % (0.0-2.0); EOSINOPHILS % (MANUAL) 2 % (0-4); LYMPHOCYTES % (MANUAL) 20 % (16-48); MONOCYTES % (MANUAL) 12 % (0-11.0); NEUTROPHILS % (MANUAL) 61 (42-76)
[2022-04-20 13:17] LABS: THYROID STIMULATING HORMONE 3.242 uIU/mL (0.358-3.74)
[2022-04-20] MEDS: MEROPENEM 1 G in IV NS 0.9% 100 ML IV SCH ×2 (13:25→20:57)
[2022-04-20] MEDS ORDERED: GLUCERNA 1.2 1,000 ML BOTTLE NG PRN (15:30)
[2022-04-20 16:00] VITALS: BP 150/75
[2022-04-20] MEDS: PROSTAT (PYXIS) 30 ML UDC GT SCH (17:00)
[2022-04-20 18:20] LABS: HEMOGLOBIN 7.5 g/dL (11.5-14.8)
[2022-04-20] MEDS: GLUCERNA 1.2 1,000 ML BOTTLE GT PRN (18:21)
--- NOTE | 2022-04-20 18:52 | NUR ---
INVASIVE CARDIOVASCULAR TECHNOLOGIST CLOSING NOTE PATIENT IN BED, AWAKE, NON VERBAL. O2 4L VIA NC SAT 94%. HOB KEPT ELEVATED. IV ACCESS @ LEFT UPPER ARM MIDLINE, FLUSHES WELL. ON G-TUBE FEEDING OF GLUCERNA @ 10 ML/HR, G-TUBE SITE IN PLACE, PATENT, NO RESIDUAL NOTED, FLUSHES WELL. ALL SAFETY MEASURES IMPLEMENTED. BED LOCKED AND IN LOWEST POSITION. ALL NEEDS MET AND ANTICIPATED. WILL ENDORSE TO INCOMING SHIFT FOR CONTINUITY OF CARE.
[2022-04-20 20:00] VITALS: BP 160/78
--- NOTE | 2022-04-20 20:14 | NUR ---
ORTHOTICS PROSTHETICS ASSISTANT OPENING NOTE PATIENT IN BED WITH EYES OPEN, PT NON-VERBAL. PT STABLE ON 4 LPM OF O2 VIA NASAL CANNULA, NO S/S OF DISTRESS OR SOB NOTED, BREATHING EVEN AND UNLABORED. PT ON TELE MONITORING READING SINUS TACHY, HR: 102. IV ACCESS ON TALYA MIDLINE INTACT AND INFUSING NS @ 75 ML/HR. PATIENT ON GT FEEDING GLUCERNA 1.2 @ 15 ML/HR, WILL INCREASE TOLERATED, GOAL IS 50 ML/HR. MICHAELS CATHETER IN PLACE AND DRAINING YELLOW URINE BY GRAVITY. SAFETY MEASURES IN PLACE: CALL LIGHT WITHIN REACH, SIDE RAILS UP X 3, BED LOCKED IN LOWEST POSITION, HOB ELEVATED, BED ALARM ON. WILL CONTINUE TO MONITOR PATIENT
--- NOTE | 2022-04-20 20:36 | NUR ---
SEISMOLOGY TEACHER NOTE CALLED RT SELENA REGARDING BREATHING TX, WEREN'T GIVEN DURING DAYSHIFT SO WANTED TO MAKE AWARE. PER RT WILL COME TO ADMINISTER BREATHING TX
[2022-04-20] MEDS: IPRATROPIUM NEB FS 0.5 MG/2.5 ML AMPUL.NEB NEB SCH (21:41)
[2022-04-20] MEDS: ALBUTEROL FS 2.5 MG/3 ML VIAL.NEB NEB SCH (21:42)
[2022-04-21] VITALS: BP 163/93
--- NOTE | 2022-04-21 | NUR ---
CAMP ASSISTANT NOTE INCREASED GT FEEDING FROM 15 ML/HR TO 40 ML/HR, NO RESIDUAL NOTED, PT TOLERATING WELL, GOAL IS 50 ML/HR X 20HRS
[2022-04-21 01:32] LABS: HEMOGLOBIN 7.3 g/dL (11.5-14.8)
[2022-04-21] MEDS: IPRATROPIUM NEB FS 0.5 MG/2.5 ML AMPUL.NEB NEB SCH ×4 (01:47→19:53)
[2022-04-21] MEDS: ALBUTEROL FS 2.5 MG/3 ML VIAL.NEB NEB SCH ×4 (01:47→19:53)
[2022-04-21 04:00] VITALS: BP 156/69
--- NOTE | 2022-04-21 04:00 | NUR ---
PIG BREEDER NOTE INCREASED GT FEEDING FROM 40 ML/HR TO GOAL OF 50 ML/HR, NO RESIDUAL NOTED, PT TOLERATING WELL. WILL CONTINUE TO MONITOR PATIENT
[2022-04-21] MEDS: MEROPENEM 1 G in IV NS 0.9% 100 ML IV SCH ×3 (05:42→20:56)
[2022-04-21 06:11] LABS: BASOPHILS # (AUTO) 0.1 K/uL (0.0-0.2); BASOPHILS % (AUTO) 0.6 % (0.0-2.0); EOSINOPHILS % (AUTO) 0.6 % (0.0-6.0); HEMATOCRIT 23 % (33-45); HEMOGLOBIN 7.5 g/dL (11.5-14.8); LYMPHOCYTES # (AUTO) 1.8 K/uL (0.8-4.8); LYMPHOCYTES % (AUTO) 19.7 % (20.0-44.0); MEAN CORPUSCULAR HGB CONC 33 g/dl (31.0-36.0); MEAN CORPUSCULAR VOLUME 80 fL (82-100); MONOCYTES # (AUTO) 0.5 K/uL (0.1-1.30); MONOCYTES % (AUTO) 5.6 % (2.0-12.0); NEUTROPHILS # (AUTO) 6.7 K/uL (1.8-8.9); NEUTROPHILS % (AUTO) 73.5 % (43.0-81.0); PLATELET COUNT (AUTO) 573 K/uL (150-450); RED BLOOD CELL COUNT(AUTO) 2.87 MIL/uL (4.0-5.2); WHITE BLOOD COUNT (AUTO) 9.1 K/uL (4.3-11.0)
--- NOTE | 2022-04-21 06:33 | NUR ---
THA RN CLOSING NOTE PATIENT SLEEPING IN BED, PT NON-VERBAL, ABLE TO OPEN EYES. PT STABLE ON 4 LPM OF O2 VIA NASAL CANNULA, NO S/S OF DISTRESS OR SOB NOTED, BREATHING EVEN AND UNLABORED. PT ON TELE MONITORING READING SINUS TACHY, HR: 108. IV ACCESS ON TALYA MIDLINE INTACT AND INFUSING MERREM @ 33.33 ML/HR AT THIS TIME. PATIENT ON GT FEEDING GLUCERNA 1.2 @ 50 ML/HR X 20 HRS, PATIENT NOW AT GOAL RATE, TOLERATED WELL, NO RESIDUAL NOTED. MICHAELS CATHETER IN PLACE AND DRAINING YELLOW URINE BY GRAVITY, OUTPUT OF 900 ML/HR. SAFETY MEASURES IN PLACE: CALL LIGHT WITHIN REACH, SIDE RAILS UP X 3, BED LOCKED IN LOWEST POSITION, HOB ELEVATED, BED ALARM ON. WILL ENDORSE TO DAYSHIFT RN FOR CONTINUITY OF CARE
[2022-04-21 06:42] LABS: ALANINE AMINOTRANSFERASE 14 U/L (12-78); ALBUMIN 2.5 g/dL (3.4-5.0); ALKALINE PHOSPHATASE 88 U/L (46-116); ASPARTATE AMINOTRANSFERASE 13 U/L (15-37); BILIRUBIN,TOTAL 0.4 mg/dL (0.2-1.0); CALCIUM, SERUM 8.8 mg/dL (8.5-10.1); CARBON DIOXIDE 24 mmol/L (21-32); CHLORIDE 105 mmol/L (98-107); CREATININE 0.5 mg/dL (0.6-1.3); GLUCOSE 127 mg/dL (74-106); MAGNESIUM 1.8 mg/dL (1.8-2.4); PHOSPHORUS 2.5 mg/dL (2.5-4.9); SODIUM SERUM 141 mmol/L (136-145); TOTAL PROTEIN, SERUM 6.8 g/dL (6.4-8.2); UREA NITROGEN, BLOOD 6 mg/dL (7-18)
--- NOTE | 2022-04-21 07:30 | NUR ---
TD RN AM NOTE PATIENT IN BED WITH EYES OPEN, PT NON-VERBAL. ON 4 LPM OF O2 VIA NASAL CANNULA, O2 SAT 97%. NO S/S OF DISTRESS OR SOB NOTED, BREATHING EVEN AND UNLABORED. SINUS RHYTHM HR 99 ON MONITOR. NO SIGNS OF PAIN/GRIMACING. TALYA MIDLINE WITH NS @ 75 ML/HR INFUSING WELL, SITE CLEAR. PATIENT ON GT FEEDING GLUCERNA 1.2 @ 50 ML/HR, CHECKED FOR PLACEMENT, O RESIDUAL. GT SITE WITH REDNESS/ WITH BAD ODOR NOTED. FEEDING WELL TOLERATED. MICHAELS CATHETER IN PLACE AND DRAINING TURBID YELLOW URINE BY GRAVITY. SAFETY MEASURES IN PLACE: CALL LIGHT WITHIN REACH, SIDE RAILS UP X 3, BED LOCKED IN LOWEST POSITION, HOB ELEVATED, BED ALARM ON. WILL CONTINUE TO MONITOR PATIENT SEE NURSING FLOWSHEET FOR SKIN ISSUES. FOR WOUND CONSULT.
[2022-04-21] MEDS: BLOOD SUGAR DIAGNOSTIC 1 EACH STRIP VI SCH ×4 (07:54→21:11)
[2022-04-21 08:00] VITALS: BP 147/93
[2022-04-21 08:07] LABS: IMMUNOGLOBULIN A, SERUM 382 mg/dL (64-422); IMMUNOGLOBULIN G, SERUM 1518 mg/dL (586-1602); IMMUNOGLOBULIN M, SERUM 133 mg/dL (26-217)
[2022-04-21] MEDS: INSULIN REGULAR, HUMAN 100 UNIT/ML 3 ML VIAL SQ PRN ×2 (08:53→21:15)
[2022-04-21] MEDS: MULTIVIT W/MINERALS 1 TAB TABLET GT SCH (08:58)
[2022-04-21] MEDS: ACIDOPHILUS/BULGARICUS 1 EACH TAB.CHEW GT SCH (08:58)
[2022-04-21] MEDS: PANTOPRAZOLE 40 MG VIAL IV SCH ×2 (08:58→16:20)
[2022-04-21] MEDS: PROSTAT (PYXIS) 30 ML UDC GT SCH ×2 (09:01→16:20)
[2022-04-21] MEDS: AMLODIPINE BESYLATE 5 MG TABLET GT SCH (09:03)
[2022-04-21] MEDS: ACETAMINOPHEN 325 MG TABLET PO PRN (09:04)
--- NOTE | 2022-04-21 09:30 | NUR ---
RN NOTES DUE MEDS GIVEN
[2022-04-21 09:38] LABS: D-DIMER 3.66 mg/L(FEU (0.17-0.50)
[2022-04-21 09:47] LABS: HEMOGLOBIN 7.5 g/dL (11.5-14.8)
--- NOTE | 2022-04-21 10:03 | NUR ---
RN NOTES DOWNGRADE TO TELEMETRY PER DR. ALMEIDA
[2022-04-21] MEDS: FLUCONAZOLE IN NS 100 MG in PREMIX 1 EA IV SCH ×2 (10:53)
[2022-04-21] MEDS: POTASSIUM CHLORIDE 20 MEQ TAB.PRT.SR PO SCH (10:53)
[2022-04-21 12:00] VITALS: BP 130/91
--- NOTE | 2022-04-21 15:15 | NUR ---
RN NOTES LALM IN PLACE. PM CARE DONE. WOUND CARE/DRESSING CHANGED. GTF OFF AT 1500. WILL TURN ON AT 1900
[2022-04-21 16:00] VITALS: BP 118/63
--- NOTE | 2022-04-21 17:10 | NUR ---
RN NOTES SPOKE WITH [employer] CASE MANAGEMENT, RELAYED THAT PT'S SON DOES NOT WANT HER MOM TO GO BACK TO [facility]. THEY ARE REQUESTING FOR A CARE HOME IN [facility] PT'S SON CARTER - TEL NO [phone]
--- NOTE | 2022-04-21 18:24 | NUR ---
DURALUMIN METALWORKER CLOSING NOTE PATIENT IN BED, RESTING COMFORTABLY, EYES OPEN, PT NON-VERBAL. ON 4 LPM OF O2 VIA NASAL CANNULA, O2 SAT 98%. NO S/S OF DISTRESS OR SOB NOTED, BREATHING EVEN AND UNLABORED. SINUS RHYTHM HR 94 ON MONITOR. NO SIGNS OF PAIN/GRIMACING. TALYA MIDLINE SL, FLUSHES WELL, SITE CLEAR. PATIENT ON GT FEEDING GLUCERNA 1.2 @ 50 ML/HR, CHECKED FOR PLACEMENT, O RESIDUAL. ON 1900 OFF 1500. GT SITE WITH REDNESS/ WITH BAD ODOR NOTED. SITE CLEANED AND DRESSING CHANGED. MICHAELS CATHETER IN PLACE AND DRAINING TURBID YELLOW URINE BY GRAVITY. OUTPUT OF 250 ML. SAFETY MEASURES IN PLACE: CALL LIGHT WITHIN REACH, SIDE RAILS UP X 3, BED LOCKED IN LOWEST POSITION, HOB ELEVATED, BED ALARM ON. ALL NEEDS MET AT THIS TIME. TURNED AND REPOSITIONED Q 2 HOURS. PM CARE AND WOUND CARE DONE EARLIER. WILL ENDORSE TO NEXT SHIFT FOR DARWIN FOR WOUND CONSULT
--- NOTE | 2022-04-21 19:30 | NUR ---
PATIENT IN BED, RESTING COMFORTABLY, EYES OPEN, PT IS NON-VERBAL. ON 4 LPM OF O2 VIA NASAL CANNULA, O2 SAT 98%. NO S/S OF DISTRESS OR SOB NOTED, BREATHING EVEN AND UNLABORED. ON TELE MONITOR. TALYA MIDLINE ON SL, PATIENT ON GT FEEDING GLUCERNA 1.2 @ 50 ML/HR, ON 1900 OFF 1500. MICHAELS CATHETER IN PLACE. SAFETY MEASURES IN PLACE. WILL CONTINUE PLAN OF CARE.
[2022-04-21 19:54] LABS: HEMOGLOBIN 7.4 g/dL (11.5-14.8)
[2022-04-21 20:00] VITALS: BP 136/70
[2022-04-21] MEDS: GLUCERNA 1.2 1,000 ML BOTTLE GT PRN (23:55)
[2022-04-22] VITALS: BP 139/80
[2022-04-22 01:26] LABS: HEMOGLOBIN 7.2 g/dL (11.5-14.8)
[2022-04-22] MEDS: ALBUTEROL FS 2.5 MG/3 ML VIAL.NEB NEB SCH ×4 (01:39→19:42)
[2022-04-22] MEDS: IPRATROPIUM NEB FS 0.5 MG/2.5 ML AMPUL.NEB NEB SCH ×4 (01:39→19:42)
[2022-04-22 04:00] VITALS: BP 128/72
[2022-04-22] MEDS: MEROPENEM 1 G in IV NS 0.9% 100 ML IV SCH ×3 (04:12→23:16)
--- NOTE | 2022-04-22 06:31 | NUR ---
PATIENT SLEEPING IN BED, RESTING COMFORTABLY, EYES OPEN WHEN AWAKE, EASILY AWAKEN TO TOUCH AND VOICE, PT IS NON-VERBAL. ON 4 LPM OF O2 VIA NASAL CANNULA, O2 SAT 98%. NO S/S OF DISTRESS OR SOB NOTED, BREATHING EVEN AND UNLABORED. ON TELE MONITOR. TALYA MIDLINE ON SL, PATIENT ON GT FEEDING GLUCERNA 1.2 @ 50 ML/HR, ON 1900 OFF 1500. MICHAELS CATHETER IN PLACE. DUE MEDS GIVEN NEEEDED AND ORDERED. NEEDS ATTENDED. SAFETY MEASURES MAINTAINED. WILL ENDORSE TO NEXT NURSE ON DUTY FOR CONTINUITY OF CARE.
--- NOTE | 2022-04-22 07:17 | NUR ---
TELE CHIP BIN CONVEYOR TENDER OPENING NOTE RECEIVED PATIENT IN BED EYES OPEN, PT NON-VERBAL. PT STABLE ON 4L OF O2 VIA NASAL CANNULA, NO S/S OF DISTRESS OR SOB NOTED, BREATHING EVEN AND UNLABORED. PT ON TELE MONITORING READING SINUS TACHY, HR: 109. IV ACCESS ON TALYA MIDLINE INTACT AND INFUSING NS @ 75 ML/HR, AND RT HAND 20G. PATIENT ON GT FEEDING GLUCERNA 50ML/HOUR X20HRS ON AT 1900 OFF AT 1500. MICHAELS CATHETER IN PLACE AND DRAINING YELLOW URINE BY GRAVITY. SAFETY MEASURES IN PLACE: CALL LIGHT WITHIN REACH, SIDE RAILS UP X 3, BED LOCKED IN LOWEST POSITION, HEAD OF BED ELEVATED, BED ALARM ON. WILL CONTINUE TO MONITOR PATIENT
[2022-04-22] MEDS: BLOOD SUGAR DIAGNOSTIC 1 EACH STRIP VI SCH ×4 (07:53→22:13)
[2022-04-22 08:00] VITALS: BP 144/71
[2022-04-22] MEDS: ACETAMINOPHEN 325 MG TABLET PO PRN ×2 (08:35→16:41)
[2022-04-22] MEDS: POTASSIUM CHLORIDE 20 MEQ TAB.PRT.SR PO SCH (08:35)
[2022-04-22] MEDS: AMLODIPINE BESYLATE 5 MG TABLET GT SCH (08:35)
[2022-04-22] MEDS: ACIDOPHILUS/BULGARICUS 1 EACH TAB.CHEW GT SCH (08:35)
[2022-04-22] MEDS: PROSTAT (PYXIS) 30 ML UDC GT SCH ×2 (08:36→17:23)
[2022-04-22] MEDS: MULTIVIT W/MINERALS 1 TAB TABLET GT SCH (08:39)
[2022-04-22] MEDS: PANTOPRAZOLE 40 MG VIAL IV SCH ×2 (09:12→16:41)
[2022-04-22 09:35] LABS: BASOPHILS # (AUTO) 0.1 K/uL (0.0-0.2); BASOPHILS % (AUTO) 0.8 % (0.0-2.0); EOSINOPHILS % (AUTO) 1.1 % (0.0-6.0); HEMATOCRIT 22 % (33-45); HEMOGLOBIN 7.1 g/dL (11.5-14.8); LYMPHOCYTES # (AUTO) 1.6 K/uL (0.8-4.8); LYMPHOCYTES % (AUTO) 20.6 % (20.0-44.0); MEAN CORPUSCULAR HGB CONC 32 g/dl (31.0-36.0); MEAN CORPUSCULAR VOLUME 81 fL (82-100); MONOCYTES # (AUTO) 0.6 K/uL (0.1-1.30); MONOCYTES % (AUTO) 7.6 % (2.0-12.0); NEUTROPHILS # (AUTO) 5.4 K/uL (1.8-8.9); NEUTROPHILS % (AUTO) 69.9 % (43.0-81.0); PLATELET COUNT (AUTO) 544 K/uL (150-450); RED BLOOD CELL COUNT(AUTO) 2.71 MIL/uL (4.0-5.2); WHITE BLOOD COUNT (AUTO) 7.7 K/uL (4.3-11.0)
[2022-04-22 09:54] LABS: ALBUMIN 2.1 g/dL (3.4-5.0); BILIRUBIN,TOTAL 0.3 mg/dL (0.2-1.0); CALCIUM, SERUM 8.7 mg/dL (8.5-10.1); CREATININE 0.6 mg/dL (0.6-1.3); POTASSIUM 3.6 mmol/L (3.5-5.1); TOTAL PROTEIN, SERUM 6.6 g/dL (6.4-8.2)
[2022-04-22] MEDS: FLUCONAZOLE IN NS 100 MG in PREMIX 1 EA IV SCH ×2 (10:56)
[2022-04-22 12:00] VITALS: BP 131/70
[2022-04-22] MEDS: INSULIN REGULAR, HUMAN 100 UNIT/ML 3 ML VIAL SQ PRN (12:02)
[2022-04-22 12:06] LABS: *ANA ANTI-CENTROMERE B AB <0.2 AI (0.0-0.9); *ANA ANTI-DNA(DS) AB, QN <1 IU/mL (0-9); *ANA ANTI-JO-1 <0.2 AI (0.0-0.9); *ANA ANTICHROMATIN ANTIBODY <0.2 AI (0.0-0.9); *ANA RNP ANTIBODIES <0.2 AI (0.0-0.9); *ANA SJOGREN'S ANTI-SS-A <0.2 AI (0.0-0.9); *ANA SJOGREN'S ANTI-SS-B <0.2 AI (0.0-0.9); *ANAANTI-SCLERODERMA-70 AB <0.2 AI (0.0-0.9); *ANASMITH AB <0.2 AI (0.0-0.9)
[2022-04-22] MEDS ORDERED: MEROPENEM 1 G in IV NS 0.9% 100 ML IV SCH (15:00)
[2022-04-22 16:00] VITALS: BP 135/78
[2022-04-22 16:07] LABS: *SPE A/G RATIO 0.7 (0.7-1.7); *SPE ALPHA-1-GLOBULIN 0.4 g/dL (0.0-0.4); *SPE ALPHA-2-GLOBULIN 0.9 g/dL (0.4-1.0); *SPE BETA GLOBULIN 0.9 g/dL (0.7-1.3); *SPE M-SPIKE Not Observed g/dL (Not Observed)
--- NOTE | 2022-04-22 18:42 | NUR ---
TELE METAL TURNER CLOSING NOTE PATIENT IN BED EYES OPEN, PT NON-VERBAL. PT STABLE ON 4L OF O2 VIA NASAL CANNULA, NO S/S OF DISTRESS OR SOB NOTED, BREATHING EVEN AND UNLABORED. PT ON TELE MONITORING READING SINUS TACHY, HR: 83. IV ACCESS ON TALYA MIDLINE INTACT AND INFUSING NS @ 75 ML/HR, AND RT HAND 20G. PATIENT ON GT FEEDING GLUCERNA 50ML/HOUR X20HRS TURNED BACK ON AT 1900 OFF AT 1500. MICHAELS CATHETER IN PLACE AND DRAINING YELLOW URINE BY GRAVITY. SAFETY MEASURES IN PLACE: CALL LIGHT WITHIN REACH, SIDE RAILS UP X 3, BED LOCKED IN LOWEST POSITION, HEAD OF BED ELEVATED, BED ALARM ON. WILL ENDORSE TO ROCK SINGER NURSE
[2022-04-22] MEDS: GLUCERNA 1.2 1,000 ML BOTTLE GT PRN (19:04)
[2022-04-22 19:07] LABS: OCCULT BLOOD STOOL NEGATIVE (NEGATIVE)
--- NOTE | 2022-04-22 20:04 | NUR ---
TELE OPENING NOTE PATIENT IN BED EYES OPEN, PT NON-VERBAL. PT STABLE ON 4L OF O2 VIA NASAL CANNULA, NO S/S OF DISTRESS OR SOB NOTED, BREATHING EVEN AND UNLABORED. PT ON TELE MONITORING READING SINUS TACHY, HR: 83. IV ACCESS ON TALYA MIDLINE INTACT AND INFUSING NS @ 75 ML/HR, AND RT HAND 20G. PATIENT ON GT FEEDING GLUCERNA 50ML/HOUR X20HRS TURNED BACK ON AT 1900 OFF AT 1500. MICHAELS CATHETER IN PLACE AND DRAINING YELLOW URINE BY GRAVITY. SAFETY MEASURES IN PLACE: CALL LIGHT WITHIN REACH, SIDE RAILS UP X 3, BED LOCKED IN LOWEST POSITION, HEAD OF BED ELEVATED, BED ALARM ON. Addendum: 04/22/22 at 2004 by CAMILLA DEWITT RN PT NOT RUNNING NS PT SL
[2022-04-22 20:27] LABS: HEMOGLOBIN 7.1 g/dL (11.5-14.8)
[2022-04-22 20:53] VITALS: BP 130/66
[2022-04-22] MEDS: DAKINS QUARTER STRENGTH (0.125%) 480 ML BOTTLE TOP SCH (22:33)
[2022-04-23 01:02] VITALS: BP 131/66
[2022-04-23] MEDS: ALBUTEROL FS 2.5 MG/3 ML VIAL.NEB NEB SCH ×4 (01:34→20:21)
[2022-04-23] MEDS: IPRATROPIUM NEB FS 0.5 MG/2.5 ML AMPUL.NEB NEB SCH ×4 (01:34→20:21)
[2022-04-23 04:00] VITALS: BP 128/66
--- NOTE | 2022-04-23 04:30 | NUR ---
rn note pt o2 titrated to 3l tolerating well.
--- NOTE | 2022-04-23 06:27 | NUR ---
TELE CLOSING NOTE PATIENT IN BED EYES OPEN, PT NON-VERBAL. PT STABLE ON 3L OF O2 VIA NASAL CANNULA, NO S/S OF DISTRESS OR SOB NOTED, BREATHING EVEN AND UNLABORED. PT ON TELE MONITORING READING SINUS TACHY, HR: 80S. IV ACCESS ON TALYA MIDLINE INTACT S/L PATIENT ON GT FEEDING GLUCERNA 50ML/HOUR X20HRS TO BE TURNED OFF AT 1500 AND BACK ON AT ON AT 1900. MICHAELS CATHETER IN PLACE AND DRAINING YELLOW URINE BY GRAVITY. SAFETY MEASURES IN PLACE: CALL LIGHT WITHIN REACH, SIDE RAILS UP X 3, BED LOCKED IN LOWEST POSITION, HEAD OF BED ELEVATED, BED ALARM ON. WILL ENDORSE CARE TO DAY SHIFT NURSE.
[2022-04-23 07:06] LABS: BASOPHILS # (AUTO) 0.1 K/uL (0.0-0.2); BASOPHILS % (AUTO) 0.8 % (0.0-2.0); EOSINOPHILS % (AUTO) 2.2 % (0.0-6.0); HEMATOCRIT 25 % (33-45); HEMOGLOBIN 7.9 g/dL (11.5-14.8); LYMPHOCYTES # (AUTO) 1.7 K/uL (0.8-4.8); LYMPHOCYTES % (AUTO) 21.7 % (20.0-44.0); MEAN CORPUSCULAR HGB CONC 32 g/dl (31.0-36.0); MEAN CORPUSCULAR VOLUME 81 fL (82-100); MONOCYTES # (AUTO) 0.6 K/uL (0.1-1.30); MONOCYTES % (AUTO) 7.8 % (2.0-12.0); NEUTROPHILS # (AUTO) 5.4 K/uL (1.8-8.9); NEUTROPHILS % (AUTO) 67.5 % (43.0-81.0); PLATELET COUNT (AUTO) 521 K/uL (150-450); RED BLOOD CELL COUNT(AUTO) 3.01 MIL/uL (4.0-5.2)
--- NOTE | 2022-04-23 07:15 | NUR ---
FUEL TRUCK DRIVER OPENING NOTES: RECEIVED PATIENT IN BED, AWAKE WITH HER EYES OPEN, PATIENT IS NON VERBAL. NO SOB NOTED, BREATHING EVEN AND UNLABORED. ON OXYGEN @ 3L/MIN VIA N/C WITH OXYGEN SATURATION OF 100%. ON SR WITH HR OF 95 PER TELE MONITOR. PATIENT HAS IV ACCESS ON LEFT UPPER ARM MIDLINE, AND ON RIGHT WRIST, BOTH PATENT, INTACT, AND FLUSHES WELL WITH NO S/S INFILTRATION NOTED. ON G-TUBE FEEDING OF GLUCERNA 1.2 RUNNING @ 50 ML/HR. G-TUBE IN PLACE, PATENT, NO RESIDUAL AND FLUSHES WELL. MICHAELS CATHETER INTACT, DRAINING TO GRAVITY WITH YELLOW COLORED URINE, NO HEMATURIA AND NO SEDIMENTATION NOTED. HOB KEPT ELEVATED AT ALL TIMES. ALL SAFETY MEASURES IN PLACE. BED LOCKED AND IN LOWEST POSITION. WILL CONTINUE TO MONITOR PATIENT THROUGHOUT SHIFT.
[2022-04-23 07:17] LABS: CALCIUM, SERUM 9.1 mg/dL (8.5-10.1); CARBON DIOXIDE 28 mmol/L (21-32); CHLORIDE 105 mmol/L (98-107); CREATININE 0.5 mg/dL (0.6-1.3); GLUCOSE 148 mg/dL (74-106); POTASSIUM 3.9 mmol/L (3.5-5.1); SODIUM SERUM 140 mmol/L (136-145); UREA NITROGEN, BLOOD 12 mg/dL (7-18)
[2022-04-23 07:19] LABS: D-DIMER 3.43 mg/L(FEU (0.17-0.50)
[2022-04-23 07:33] LABS: ALANINE AMINOTRANSFERASE 15 U/L (12-78); ALBUMIN 2.1 g/dL (3.4-5.0); ALKALINE PHOSPHATASE 102 U/L (46-116); ASPARTATE AMINOTRANSFERASE 14 U/L (15-37); BILIRUBIN,TOTAL 0.2 mg/dL (0.2-1.0); TOTAL PROTEIN, SERUM 6.9 g/dL (6.4-8.2)
[2022-04-23] MEDS: BLOOD SUGAR DIAGNOSTIC 1 EACH STRIP VI SCH ×4 (07:59→21:18)
[2022-04-23] MEDS: INSULIN REGULAR, HUMAN 100 UNIT/ML 3 ML VIAL SQ PRN ×2 (07:59→11:31)
[2022-04-23 08:00] VITALS: BP 126/61
[2022-04-23] MEDS: DAKINS QUARTER STRENGTH (0.125%) 480 ML BOTTLE TOP SCH (08:00)
[2022-04-23] MEDS: PANTOPRAZOLE 40 MG VIAL IV SCH (08:57)
[2022-04-23] MEDS: ACIDOPHILUS/BULGARICUS 1 EACH TAB.CHEW GT SCH (08:57)
[2022-04-23] MEDS: AMLODIPINE BESYLATE 5 MG TABLET GT SCH (08:57)
[2022-04-23] MEDS: PROSTAT (PYXIS) 30 ML UDC GT SCH ×2 (08:57→16:45)
[2022-04-23] MEDS: POTASSIUM CHLORIDE 20 MEQ TAB.PRT.SR PO SCH (08:57)
[2022-04-23] MEDS: MULTIVIT W/MINERALS 1 TAB TABLET GT SCH (08:57)
[2022-04-23] MEDS: FLUCONAZOLE IN NS 200 MG in PREMIX 1 EA IV SCH ×2 (10:40)
[2022-04-23 12:00] VITALS: BP 131/59
--- NOTE | 2022-04-23 12:07 | NUR ---
WENDI HIGH INFORMED OF PROCALCITONIN RESULT OF 3.61, LAST ONE WAS 1.98 ON 04/20 WITH NO FURTHER ORDERS AT THIS TIME
--- NOTE | 2022-04-23 12:21 | NUR ---
MAINOR ALVARADO CAME BY AND DID SACRAL DEBRIDEMENT FOR THE PATIENT. PATIENT TOLERATED PROCEDURE WELL.
[2022-04-23] MEDS: MEROPENEM 1 G in IV NS 0.9% 100 ML IV SCH (12:23)
[2022-04-23] MEDS: FERROUS SULFATE UDC 300 MG/5 ML UDC GT SCH (14:58)
[2022-04-23 16:00] VITALS: BP 133/68
[2022-04-23] MEDS ORDERED: GLUCERNA 1.2 1,000 ML BOTTLE PEG PRN (16:00)
[2022-04-23] MEDS: PANTOPRAZOLE 40 MG/PACK PACK GT SCH (16:46)
[2022-04-23] MEDS: ACETAMINOPHEN 325 MG TABLET PO PRN (18:16)
--- NOTE | 2022-04-23 18:50 | NUR ---
GOVERNMENT PROPERTY INSPECTOR CLOSING NOTES: PATIENT IN BED WITH EYES OPEN, PATIENT IS NON-VERBAL. NO RESPIRATORY DISTRESS NOTED THROUGHOUT SHIFT AND IS ON OXYGEN @ 2L/MIN VIA N/C TOLERATING WELL WITH OXYGEN SATURATION OF 99%. ON SR WITH HR OF 86 PER TELE MONITOR. IV ACCESS ON LEFT UPPER ARM MIDLINE INTACT, PATENT AND FLUSHES WELL, NO S/S INFILTRATION. ALSO HAS SALINE LOCK ON RIGHT HAND, PATIENT AND FLUSHES WELL. ON GT FEEDING OF GLUCERNA 1.2 @ 55ML/HOUR 24HRS ORDERED BY . MICHAELS CATHETER IN PLACE AND DRAINING VIA GRAVITY, EMPTIED 750 ML OF YELLOW COLORED URINE. ALL SAFETY MEASURES IMPLEMENTED. BED LOCKED AND IN LOWEST POSITION. CALL LIGHT WITHIN REACH, SIDE RAILS UP X 3. HEAD OF BED ELEVATED @ 40 DEGREES. WILL ENDORSE TO INCOMING NURSE FOR CONTINUITY OF CARE.
[2022-04-23 20:00] VITALS: BP 120/70
[2022-04-24] VITALS: BP 122/74
[2022-04-24] MEDS: MEROPENEM 1 G in IV NS 0.9% 100 ML IV SCH ×3 (00:38→23:09)
[2022-04-24] MEDS: ALBUTEROL FS 2.5 MG/3 ML VIAL.NEB NEB SCH ×4 (01:19→20:18)
[2022-04-24] MEDS: IPRATROPIUM NEB FS 0.5 MG/2.5 ML AMPUL.NEB NEB SCH ×4 (01:19→20:19)
[2022-04-24 04:00] VITALS: BP 130/74
[2022-04-24 06:41] LABS: BASOPHILS # (AUTO) 0.1 K/uL (0.0-0.2); BASOPHILS % (AUTO) 1.2 % (0.0-2.0); EOSINOPHILS % (AUTO) 2.5 % (0.0-6.0); HEMATOCRIT 24 % (33-45); HEMOGLOBIN 7.9 g/dL (11.5-14.8); LYMPHOCYTES # (AUTO) 2.7 K/uL (0.8-4.8); LYMPHOCYTES % (AUTO) 27.5 % (20.0-44.0); MEAN CORPUSCULAR HGB CONC 33 g/dl (31.0-36.0); MEAN CORPUSCULAR VOLUME 81 fL (82-100); MONOCYTES # (AUTO) 0.9 K/uL (0.1-1.30); MONOCYTES % (AUTO) 9.7 % (2.0-12.0); NEUTROPHILS # (AUTO) 5.7 K/uL (1.8-8.9); NEUTROPHILS % (AUTO) 59.1 % (43.0-81.0); PLATELET COUNT (AUTO) 550 K/uL (150-450); RED BLOOD CELL COUNT(AUTO) 3.03 MIL/uL (4.0-5.2); WHITE BLOOD COUNT (AUTO) 9.7 K/uL (4.3-11.0)
--- NOTE | 2022-04-24 06:43 | NUR ---
RECREATIONAL VEHICLE RESORT MANAGER CLOSING NOTE PATIENT IN BED WITH EYES CLOSED BUT EASY TO AROUSED,NON-VERBAL. ON 3 LPM OF O2 VIA NASAL CANNULA, O2 SAT 97%. NO S/S OF DISTRESS OR SOB NOTED, BREATHING EVEN AND UNLABORED.NO SIGNS OF PAIN/GRIMACING DURING SHIFT,IV SITE TALYA MIDLINE SL, FLUSHES WELL,ON GT FEEDING GLUCERNA 1.2 @ 50 ML/HR,NO RESIDUAL NOTED,MICHAELS CATHETER IN PLACE AND DRAINING YELLOW URINE BY GRAVITY. OUTPUT OF 375ML. SAFETY MEASURES IN PLACE: CALL LIGHT WITHIN REACH, SIDE RAILS UP X 3, BED LOCKED IN LOWEST POSITION, HOB ELEVATED, BED ALARM ON. ALL NEEDS MET AT THIS TIME.WILL ENDORSE TO NEXT SHIFT.
[2022-04-24 07:27] LABS: CALCIUM, SERUM 9.2 mg/dL (8.5-10.1); CARBON DIOXIDE 28 mmol/L (21-32); CHLORIDE 105 mmol/L (98-107); CREATININE 0.4 mg/dL (0.6-1.3); GLUCOSE 121 mg/dL (74-106); SODIUM SERUM 140 mmol/L (136-145); UREA NITROGEN, BLOOD 14 mg/dL (7-18)
[2022-04-24 07:33] LABS: ALANINE AMINOTRANSFERASE 13 U/L (12-78); ALBUMIN 2.1 g/dL (3.4-5.0); ALKALINE PHOSPHATASE 93 U/L (46-116); ASPARTATE AMINOTRANSFERASE 18 U/L (15-37); BILIRUBIN,TOTAL 0.3 mg/dL (0.2-1.0); TOTAL PROTEIN, SERUM 6.9 g/dL (6.4-8.2)
--- NOTE | 2022-04-24 07:54 | NUR ---
RN OPENING NOTE PATIENT AWAKE IN BED RESTING, A/O X 0, NON-VERBAL. NO S/S OF PAIN NOTED AT THIS TIME. ON 3L OXYGEN VIA NC, NO DISTRESS OR SHORTNESS OF BREATH NOTED. IV ACCESS TALYA MIDLINE, INTACT, PATENT AND FLUSHING WELL. PATIENT WITH EXTERNAL CHRISTIAN EDUCATION DIRECTOR WITH CURRENT READING OF SR AND HR OF 95. PATIENT HAVE A G-TUBE RUNNING GLUCERNA 1.2 @ 50ML/HR. PATIENT HAVE A MICHAELS CATHETER IN PLACE AND DRAINING WELL. FALL AND SAFETY MEASURES IN PLACE, BED ALARM ON, BED IN LOW AND LOCK POSITION, CALL LIGHT AND TABLE WITHIN EASY REACH, SIDE RAILS UP X2. WILL CONTINUE TO MONITOR.
[2022-04-24 08:00] VITALS: BP 118/62
[2022-04-24] MEDS: PANTOPRAZOLE 40 MG/PACK PACK GT SCH ×2 (08:51→16:15)
[2022-04-24] MEDS: MULTIVIT W/MINERALS 1 TAB TABLET GT SCH (08:52)
[2022-04-24] MEDS: ACIDOPHILUS/BULGARICUS 1 EACH TAB.CHEW GT SCH (08:52)
[2022-04-24] MEDS: FERROUS SULFATE UDC 300 MG/5 ML UDC GT SCH (08:52)
[2022-04-24] MEDS: POTASSIUM CHLORIDE 20 MEQ TAB.PRT.SR PO SCH (08:52)
[2022-04-24] MEDS: AMLODIPINE BESYLATE 5 MG TABLET GT SCH (08:52)
[2022-04-24] MEDS: PROSTAT (PYXIS) 30 ML UDC GT SCH (08:53)
[2022-04-24] MEDS: BLOOD SUGAR DIAGNOSTIC 1 EACH STRIP VI SCH ×4 (08:53→22:40)
[2022-04-24] MEDS: DAKINS QUARTER STRENGTH (0.125%) 480 ML BOTTLE TOP SCH (08:53)
[2022-04-24] MEDS: FLUCONAZOLE IN NS 200 MG in PREMIX 1 EA IV SCH ×2 (11:37)
[2022-04-24 12:00] VITALS: BP 117/60
[2022-04-24] MEDS: INSULIN REGULAR, HUMAN 100 UNIT/ML 3 ML VIAL SQ PRN (12:20)
[2022-04-24 16:00] VITALS: BP 130/61
[2022-04-24] MEDS: PROSOURCE / PROSTAT (PYXIS) 30 ML UDC GT SCH (16:46)
--- NOTE | 2022-04-24 18:35 | NUR ---
RN CLOSING NOTE PATIENT AWAKE IN BED RESTING, A/O X 0, NON-VERBAL. NO S/S OF PAIN NOTED AT THIS TIME. ON 3L OXYGEN VIA NC, NO DISTRESS OR SHORTNESS OF BREATH NOTED. IV ACCESS TALYA MIDLINE, INTACT, PATENT AND FLUSHING WELL. PATIENT HAVE A G-TUBE RUNNING GLUCERNA 1.2 @ 50ML/HR, TOLERATING FEEDING WELL. PATIENT HAVE A MICHAELS CATHETER IN PLACE AND DRAINING WELL OUTPUT 500ML, YELLOW URINE. SCHEDULE MEDICATIONS ADMINISTERED. PATIENT WAS TURNED AND REPOSITIONED PER PROTOCOL. WOUND CARE IMPLEMENTED. FALL AND SAFETY MEASURES IN PLACE, BED ALARM ON, BED IN LOW AND LOCK POSITION, CALL LIGHT AND TABLE WITHIN EASY REACH, SIDE RAILS UP X2. ALL NEEDS ATTENDED AND ANTICIPATED. WILL ENDORSE TO PLAYER DEVELOPMENT EXECUTIVE.
[2022-04-24] MEDS: ACETAMINOPHEN 325 MG TABLET PO PRN (18:50)
[2022-04-24 20:00] VITALS: BP 125/65
[2022-04-24 20:51] LABS: HEMOGLOBIN 7.6 g/dL (11.5-14.8)
[2022-04-25] MEDS: IPRATROPIUM NEB FS 0.5 MG/2.5 ML AMPUL.NEB NEB SCH ×3 (01:42→12:54)
[2022-04-25] MEDS: ALBUTEROL FS 2.5 MG/3 ML VIAL.NEB NEB SCH ×3 (01:42→12:54)
[2022-04-25 02:00] VITALS: BP 128/64
[2022-04-25 04:00] VITALS: BP 120/57
[2022-04-25 06:57] LABS: BASOPHILS # (AUTO) 0.1 K/uL (0.0-0.2); BASOPHILS % (AUTO) 1.1 % (0.0-2.0); EOSINOPHILS % (AUTO) 1.5 % (0.0-6.0); HEMATOCRIT 25 % (33-45); LYMPHOCYTES # (AUTO) 1.9 K/uL (0.8-4.8); LYMPHOCYTES % (AUTO) 23.6 % (20.0-44.0); MEAN CORPUSCULAR HGB CONC 32 g/dl (31.0-36.0); MEAN CORPUSCULAR VOLUME 81 fL (82-100); MONOCYTES # (AUTO) 0.5 K/uL (0.1-1.30); MONOCYTES % (AUTO) 6.8 % (2.0-12.0); NEUTROPHILS # (AUTO) 5.3 K/uL (1.8-8.9); PLATELET COUNT (AUTO) 618 K/uL (150-450); RED BLOOD CELL COUNT(AUTO) 3.06 MIL/uL (4.0-5.2); WHITE BLOOD COUNT (AUTO) 7.9 K/uL (4.3-11.0)
--- NOTE | 2022-04-25 07:20 | NUR ---
SOFTWARE VALIDATION ENGINEER OPENING NOTES Recieved pt awake in bed. Non verbal and unable to follow command. No signs of pain or discomfort at this time. Pt is on NC 3L and tolerating it well. IV access on TALYA midline patent and intact. HOB elevated to 30-45 degrees. Siderails up x2 at all times. Call light within reach. Will continue current plan of care.
[2022-04-25 07:25] LABS: ALANINE AMINOTRANSFERASE 14 U/L (12-78); ALBUMIN 2.1 g/dL (3.4-5.0); ALKALINE PHOSPHATASE 120 U/L (46-116); ASPARTATE AMINOTRANSFERASE 16 U/L (15-37); BILIRUBIN,TOTAL 0.2 mg/dL (0.2-1.0); CALCIUM, SERUM 9.3 mg/dL (8.5-10.1); CARBON DIOXIDE 28 mmol/L (21-32); CHLORIDE 106 mmol/L (98-107); CREATININE 0.4 mg/dL (0.6-1.3); GLUCOSE 157 mg/dL (74-106); SODIUM SERUM 142 mmol/L (136-145); TOTAL PROTEIN, SERUM 7.3 g/dL (6.4-8.2); UREA NITROGEN, BLOOD 13 mg/dL (7-18)
[2022-04-25 08:00] VITALS: BP 124/62
[2022-04-25] MEDS: BLOOD SUGAR DIAGNOSTIC 1 EACH STRIP VI SCH ×2 (08:16→11:22)
[2022-04-25] MEDS: INSULIN REGULAR, HUMAN 100 UNIT/ML 3 ML VIAL SQ PRN (08:19)
[2022-04-25] MEDS: FERROUS SULFATE UDC 300 MG/5 ML UDC GT SCH (08:23)
[2022-04-25] MEDS: AMLODIPINE BESYLATE 5 MG TABLET GT SCH (08:23)
[2022-04-25] MEDS: PANTOPRAZOLE 40 MG/PACK PACK GT SCH (08:23)
[2022-04-25] MEDS: ACIDOPHILUS/BULGARICUS 1 EACH TAB.CHEW GT SCH (08:23)
[2022-04-25] MEDS: MULTIVIT W/MINERALS 1 TAB TABLET GT SCH (08:23)
[2022-04-25] MEDS: DAKINS QUARTER STRENGTH (0.125%) 480 ML BOTTLE TOP SCH (08:38)
[2022-04-25] MEDS: PROSOURCE / PROSTAT (PYXIS) 30 ML UDC GT SCH (09:42)
[2022-04-25] MEDS: FLUCONAZOLE IN NS 200 MG in PREMIX 1 EA IV SCH ×2 (10:44)
[2022-04-25 12:00] VITALS: BP 123/65
[2022-04-25] MEDS: MEROPENEM 1 G in IV NS 0.9% 100 ML IV SCH (12:06)
[2022-04-25] MEDS ORDERED: ALBUT2 NEB (12:34)
[2022-04-25] MEDS ORDERED: SODI473S8 TOP (12:34)
[2022-04-25] MEDS ORDERED: ACET325T53 PO (12:34)
[2022-04-25] MEDS ORDERED: FLUC200P18 IV (12:34)
[2022-04-25] MEDS ORDERED: IPRA0.2S9 NEB (12:34)
[2022-04-25] MEDS ORDERED: ALBU2.5V13 NEB (12:34)
[2022-04-25] MEDS ORDERED: MERO1PIG IV (12:34)
[2022-04-25] MEDS ORDERED: ACID1TAB12 GT (12:34)
[2022-04-25] MEDS ORDERED: Prosource GT (12:34)
[2022-04-25] MEDS ORDERED: FERR300L GT (12:34)
[2022-04-25] MEDS ORDERED: NUT.237L45 PEG (12:34)
[2022-04-25] MEDS ORDERED: PANT40SU2 GT (12:34)
[2022-04-25] MEDS ORDERED: AMLO-212 GT (12:34)
[2022-04-25] MEDS ORDERED: SOD FERRIC GLUC 125 MG in IV NS 0.9% 100 ML IV SCH (14:00)
--- NOTE | 2022-04-25 16:31 | NUR ---
BARBERING TEACHER NOTES [facility] Gave report to Juana DUMONT. IV access left in d/t pt to continue IV ATB for 7 days at the facility per MD orders. Transferred from bed to [facility].
== END 2022-04-25 20:30 | DRG 951 ==
LOC: ER 07:53 → TRANSITION 09:42 → TELE1 11:38 → TELE-TD 04-21 04:59 → TELE1 04-21 10:08 → MEDSG1 04-24 12:55
PROVIDERS: ADMIT Internal Medicine; ATTEND Nurse Practitioner Acute Care
PROC: 0KBP0ZZ Excision of Left Hip Muscle, Open Approach (ICD-10-PCS; principal; 2022-04-23)
PROC: 0KBN0ZZ Excision of Right Hip Muscle, Open Approach (ICD-10-PCS; 2022-04-23)
DX: J15.9 Unspecified bacterial pneumonia (principal); J96.21 Acute and chronic respiratory failure with hypoxia; G93.41 Metabolic encephalopathy; E43 Unspecified severe protein-calorie malnutrition; L89.154 Pressure ulcer of sacral region, stage 4; B37.81 Candidal esophagitis; R53.2 Functional quadriplegia; F03.90 Unspecified dementia, unspecified severity, without behavioral disturbance, psychotic disturbance, mood disturbance, and anxiety; N39.0 Urinary tract infection, site not specified; Z20.822 Contact with and (suspected) exposure to COVID-19; I69.354 Hemiplegia and hemiparesis following cerebral infarction affecting left non-dominant side; Z87.19 Personal history of other diseases of the digestive system; I10 Essential (primary) hypertension; E11.9 Type 2 diabetes mellitus without complications; Z79.84 Long term (current) use of oral hypoglycemic drugs; Z79.4 Long term (current) use of insulin; Z79.82 Long term (current) use of aspirin; Z79.899 Other long term (current) drug therapy; E78.5 Hyperlipidemia, unspecified; R13.10 Dysphagia, unspecified; Z93.1 Gastrostomy status; K21.9 Gastro-esophageal reflux disease without esophagitis; D64.9 Anemia, unspecified; Z86.19 Personal history of other infectious and parasitic diseases; E88.09 Other disorders of plasma-protein metabolism, not elsewhere classified; G40.909 Epilepsy, unspecified, not intractable, without status epilepticus; Z79.02 Long term (current) use of antithrombotics/antiplatelets; D72.820 Lymphocytosis (symptomatic); D72.821 Monocytosis (symptomatic); D75.839 Thrombocytosis, unspecified; D50.9 Iron deficiency anemia, unspecified; E87.6 Hypokalemia; I25.2 Old myocardial infarction; I69.320 Aphasia following cerebral infarction; Y95 Nosocomial condition; K22.10 Ulcer of esophagus without bleeding; B96.89 Other specified bacterial agents as the cause of diseases classified elsewhere
CPT/HCPCS: 36415; 36600; 71045-TC; 80048-TC; 80053-TC; 80076-TC; 81001; 82140-TC; 82272-TC; 82607-TC; 82728-TC; 82784; 82803-TC; 82962-TC; 83540-TC; 83605-TC; 83615-TC; 83735-TC; 83880; 84100-TC; 84155; 84165; 84443-TC; 84484-TC; 85025-TC; 85027-TC; 85396; 85730-TC; 86140-TC; 86225; 86235; 86334; 86431-TC; 86850-TC; 87040-TC; 87081-TC; 87086-TC; 94799-TC; A4216; A4217; A6253; A6403; C9113; G0378; J0360; J1450; J1815; J2185; J2270; J2916; J7030; J7050; P9047

== ENCOUNTER 2022-06-17 08:02 | Inpatient (IN) | payer MEDICAID ==
[2022-06-17] VITALS (51 sets, daily range): BP systolic 83–152; BP diastolic 41–75
[~2022-06-17] VITALS: Ht 154.9 cm; Wt 41.7 kg
[~2022-06-17 08:02] MED LIST changes: +ACET325T53 PO; +ALBU2.5V13 NEB; +ALBUT2 NEB; +FERR300L GT; +FLUC200P18 IV; +IPRA0.2S9 NEB; +MERO1PIG IV; +NUT.237L45 PEG; -PIPE3.379 IV; +Prosource GT; +SODI473S8 TOP; -VANC500F2 IV
--- NOTE | 2022-06-17 08:02 | NUR ---
BIBA FROM SNF FOR HYPOTENSION. NON-VERBAL PER BASELINE
--- NOTE | 2022-06-17 08:17 | NUR ---
MOVE SHEET SUBMITTED.
[2022-06-17] MEDS ORDERED: PIPERACILLIN /TAZOBACTAM 3.375 G in IV D5W 50 ML IV ONE (08:30)
[2022-06-17] MEDS ORDERED: VANCOMYCIN 1 GM in IV D5W 250 ML IV ONE (08:30)
[2022-06-17] MEDS ORDERED: IV NS 0.9% 1,000 ML BAG IV ONE ×2 (08:30)
[2022-06-17] MEDS ORDERED: PANTOPRAZOLE 40 MG VIAL IV ONE (08:30)
[2022-06-17] MEDS ORDERED: ONDANSETRON HCL/PF 4 MG/2 ML VIAL IVP ONE (08:30)
--- NOTE | 2022-06-17 08:33 | NUR ---
patient taken to ct by luz via [facility]
--- NOTE | 2022-06-17 08:40 | NUR ---
COVID SWAB OBTAINED
--- NOTE | 2022-06-17 08:40 | NUR ---
BLOOD SAMPLES OBTAINED
--- NOTE | 2022-06-17 08:40 | NUR ---
URINE SAMPLE OBTAINED
[2022-06-17] MEDS ORDERED: PANTOPRAZOLE 40 MG VIAL ONE (08:43)
[2022-06-17] MEDS ORDERED: ONDANSETRON HCL/PF 4 MG/2 ML VIAL ONE (08:43)
[2022-06-17 09:18] LABS: LYMPHOCYTES # (AUTO) 0.7 K/uL (0.8-4.8); MONOCYTES # (AUTO) 0.7 K/uL (0.1-1.30)
[2022-06-17 09:25] LABS: BASOPHILS % (AUTO) 0.1 % (0.0-2.0); HEMATOCRIT 27 % (33-45); LYMPHOCYTES % (AUTO) 3.5 % (20.0-44.0); MEAN CORPUSCULAR HGB CONC 30 g/dl (31.0-36.0); MEAN CORPUSCULAR VOLUME 91 fL (82-100); MONOCYTES % (AUTO) 3.6 % (2.0-12.0); NEUTROPHILS # (AUTO) 19.3 K/uL (1.8-8.9); NEUTROPHILS % (AUTO) 92.8 % (43.0-81.0); PLATELET COUNT (AUTO) 264 K/uL (150-450); RED BLOOD CELL COUNT(AUTO) 2.95 MIL/uL (4.0-5.2); WHITE BLOOD COUNT (AUTO) 20.8 K/uL (4.3-11.0)
--- NOTE | 2022-06-17 09:27 | NUR ---
PICC line nurse at bedside
[2022-06-17 09:47] LABS: ALANINE AMINOTRANSFERASE 43 U/L (12-78); ALBUMIN 2.3 g/dL (3.4-5.0); ALKALINE PHOSPHATASE 129 U/L (46-116); ASPARTATE AMINOTRANSFERASE 34 U/L (15-37); BILIRUBIN,DIRECT 0.2 mg/dL (0.0-0.2); BILIRUBIN,TOTAL 0.3 mg/dL (0.2-1.0); CALCIUM, SERUM 8.9 mg/dL (8.5-10.1); CARBON DIOXIDE 18 mmol/L (21-32); CHLORIDE 102 mmol/L (98-107); CREATININE 0.9 mg/dL (0.6-1.3); GLUCOSE 235 mg/dL (74-106); LIPASE 130 U/L (73-393); POTASSIUM 4.8 mmol/L (3.5-5.1); SODIUM SERUM 136 mmol/L (136-145); TOTAL PROTEIN, SERUM 7.3 g/dL (6.4-8.2); UREA NITROGEN, BLOOD 46 mg/dL (7-18)
[2022-06-17 09:54] LABS: OCCULT BLOOD STOOL POSITIVE (NEGATIVE)
--- NOTE | 2022-06-17 10:11 | NUR ---
VERBAL AUTHORIZATION RECEIVED FOR PT TO STAY
--- NOTE | 2022-06-17 10:14 | NUR ---
GOT BED 258 ADMITTING INFORMED.
--- NOTE | 2022-06-17 10:17 | NUR ---
PICC line inserted R forearm, placement verified by x-ray
--- NOTE | 2022-06-17 10:28 | NUR ---
Report given to JULIA Mayen in ICU
--- NOTE | 2022-06-17 10:35 | NUR ---
RECEIVED PATIENT FROM EMERGENCY DEPARTMENT. ON 3 LITERS NASAL CANULA WITH OXYGEN SATUIRATION AT 100%. ATTACHED TO BEDSIDE MONITOR READING SINUS TACHYCARDIA. PATIENT ALERT AND ORIENTED TIMES ZERO, NONVERBAL. PEG SITE NOTED, CLAMPED AT THIS TIME. PATIENTS MICHAELS FROM FACILITY CHANGED OUT WITH NEW MICHAELS FROM [facility]. URINE OUTPUT MILKY AND WHITE, URINE CULTURE COLLECTED IN ER. IV ACCESS ON LEFT WRIST 20 GAUGE AND RIGHT UPPER ARM PICC LINE. INFUSING 1 LITER BOLUS NORMAL SALINE FROM ER AND INFUSING VANCOMYCIN FROM ER. SKIN ALTERATIONS DOCUMENTED IN PHYSICAL CHART, DRESSINGS CHANGED. PATIENT CLEANED, ONE BOWEL MOVEMENT ON ARRIVAL. SUCTIONED SMALL AMOUNT BLOODY SECRETIONS FROM ORAL AIRWAY. PATIENT CLEANED AND REPOSITIONED. SAFETY MEASURES IMPLEMENTED, BED IN LOWEST POSITION, CALL LIGHT WITHIN REACH. WILL CONTINUE PLAN OF CARE AND ANTICIPATE NEEDS.
--- NOTE | 2022-06-17 10:42 | NUR ---
Patient transferred to [facility] via [facility], all care endorsed to JULIA Mayen
[2022-06-17] MEDS ORDERED: ACETAMINOPHEN 325 MG TABLET PO PRN ×2 (11:19→11:30)
[2022-06-17] MEDS ORDERED: ONDANSETRON HCL/PF 4 MG/2 ML VIAL IVP PRN (11:30)
[2022-06-17] MEDS ORDERED: DEXTROSE 50%-WATER 50 ML DISP.SYRIN IV PRN (11:30)
[2022-06-17] MEDS ORDERED: MAG HYDROX/AL HYDROX/SIMETH 30 ML UDC PO PRN (11:30)
[2022-06-17] MEDS ORDERED: LORAZEPAM INJ 2 MG/ML VIAL IV PRN (11:30)
[2022-06-17] MEDS ORDERED: Z GUARD REMEDY 4 OZ OINT TP PRN (11:30)
[2022-06-17] MEDS ORDERED: MAGNESIUM HYDROXIDE 30 ML UDC PO PRN (11:30)
[2022-06-17] MEDS: IV NS 0.9% 1,000 ML IV SCH (11:30)
[2022-06-17] MEDS ORDERED: NOREPINEPHRINE 8 MG in IV NS 0.9% 242 ML IV PRN ×2 (11:30→12:00)
[2022-06-17] MEDS: BLOOD SUGAR DIAGNOSTIC 1 EACH STRIP IN SCH ×3 (12:00→23:39)
[2022-06-17 12:03] LABS: BAND % (MANUAL) 3 % (0.0-5.0); LYMPHOCYTES % (MANUAL) 6 % (16-48); METAMYELOCYTES % 1 % (0-0); MONOCYTES % (MANUAL) 2 % (0-11.0); MYELOCYTES % 1 % (0-0); NEUTROPHILS % (MANUAL) 87 (42-76)
[2022-06-17 12:09] LABS: BILIRUBIN,URINE NEGATIVE (NEGATIVE); COLOR,URINE YELLOW (YELLOW); LEUKOCYTE ESTERASE ,URINE 3+ (NEGATIVE); NITRITE, URINE NEGATIVE (NEGATIVE); PROTEIN,URINE 2+ mg/dl (NEGATIVE); UGLUCOSE NEGATIVE (NEGATIVE); UROBILINOGEN,URINE 0.2 EU/dL (0.2)
[2022-06-17 12:13] LABS: BACTERIA,URINE Many /HPF (None Seen); SQUAMOUS EPITHELIAL CELL,UR Few /HPF (None Seen); WBC,URINE 81-100 /HPF (0-3)
[2022-06-17] MEDS ORDERED: ACETAMINOPHEN 325 MG TABLET MC PRN (13:00)
[2022-06-17] MEDS ORDERED: ALBUTEROL FS 2.5 MG/0.5 ML VIAL.NEB NEB PRN (13:00)
[2022-06-17] MEDS ORDERED: MAGNESIUM HYDROXIDE 30 ML UDC GT PRN (13:00)
[2022-06-17] MEDS: PIPERACILLIN /TAZOBACTAM 3.375 G in IV D5W 50 ML IV SCH ×3 (13:36→23:39)
[2022-06-17] MEDS ORDERED: MAG HYDROX/AL HYDROX/SIMETH 30 ML UDC GT PRN (17:30)
--- NOTE | 2022-06-17 19:08 | NUR ---
HAND OFF GIVEN TO SARAH DUMONT FOR CONTINUATION OF CARE.
[2022-06-17] MEDS: VANCOMYCIN 500 MG in IV D5W 100ml IV SCH (19:46)
[2022-06-17] MEDS: IPRATROPIUM NEB FS 0.5 MG/2.5 ML AMPUL.NEB NEB SCH ×2 (19:50→19:55)
[2022-06-18] VITALS (84 sets, daily range): BP systolic 85–155; BP diastolic 46–93
[2022-06-18] MEDS: IPRATROPIUM NEB FS 0.5 MG/2.5 ML AMPUL.NEB NEB SCH ×4 (01:58→19:11)
[2022-06-18] MEDS: IV NS 0.9% 1,000 ML IV SCH ×2 (02:45→13:24)
[2022-06-18 04:21] LABS: BASOPHILS # (AUTO) 0.1 K/uL (0.0-0.2); BASOPHILS % (AUTO) 0.5 % (0.0-2.0); EOSINOPHILS % (AUTO) 0.2 % (0.0-6.0); HEMATOCRIT 21 % (33-45); LYMPHOCYTES # (AUTO) 3.8 K/uL (0.8-4.8); LYMPHOCYTES % (AUTO) 16.5 % (20.0-44.0); MEAN CORPUSCULAR HGB CONC 31 g/dl (31.0-36.0); MEAN CORPUSCULAR VOLUME 88 fL (82-100); MONOCYTES % (AUTO) 4.2 % (2.0-12.0); NEUTROPHILS # (AUTO) 18.3 K/uL (1.8-8.9); NEUTROPHILS % (AUTO) 78.6 % (43.0-81.0); PLATELET COUNT (AUTO) 286 K/uL (150-450); RED BLOOD CELL COUNT(AUTO) 2.38 MIL/uL (4.0-5.2); WHITE BLOOD COUNT (AUTO) 23.2 K/uL (4.3-11.0)
[2022-06-18 04:25] LABS: HEMOGLOBIN 6.4 g/dL (11.5-14.8)
[2022-06-18 04:36] LABS: CALCIUM, SERUM 7.7 mg/dL (8.5-10.1); CARBON DIOXIDE 25 mmol/L (21-32); CHLORIDE 111 mmol/L (98-107); CREATININE 0.6 mg/dL (0.6-1.3); GLUCOSE 140 mg/dL (74-106); MAGNESIUM 1.9 mg/dL (1.8-2.4); PHOSPHORUS 1.8 mg/dL (2.5-4.9); POTASSIUM 3.4 mmol/L (3.5-5.1); SODIUM SERUM 144 mmol/L (136-145); UREA NITROGEN, BLOOD 20 mg/dL (7-18)
[2022-06-18 04:37] LABS: IRON, SERUM 13 ug/dl (50-175); TOTAL IRON BINDING CAPACITY 234 ug/dl (250-450)
--- NOTE | 2022-06-18 04:57 | NUR ---
ICU/RN: PT CRITICAL HGB 6.[address] HESTER. 1 UNIT PRBC ORDERED. BLOOD TRANSFUSION CONSENT OBTAINED FROM PT SON CARTER BROWN WITNESSED BY RONALD REYES RN.
[2022-06-18] MEDS: PIPERACILLIN /TAZOBACTAM 3.375 G in IV D5W 50 ML IV SCH ×3 (05:00→17:43)
--- NOTE | 2022-06-18 05:15 | NUR ---
ICU/RN: PT NOTED WITH 1 EPISODE OF HEMATEMESIS. ZOFRAN ADMINISTERED ORDERED.
--- NOTE | 2022-06-18 05:30 | NUR ---
RT NOTE NASOTRACHEAL SUCTION DONE, LARGE THICK RED BLOODY SECRETIONS NOTED. B/S IMPROVED. SPO2 @ 100%.
--- NOTE | 2022-06-18 05:45 | NUR ---
ICU/RN: STARTED BLOOD TRANSFUSION.
[2022-06-18] MEDS: BLOOD SUGAR DIAGNOSTIC 1 EACH STRIP IN SCH ×3 (06:21→17:41)
--- NOTE | 2022-06-18 06:42 | NUR ---
ICU/RN: PT NOTED COUGHING UP SMALL BLOOD CLOTS. WILL CONTINUE TO MONITOR. BLOOD TRANSFUSION INFUSING ORDERED.
--- NOTE | 2022-06-18 07:16 | NUR ---
RECEIVED PATIENT REPORT FROM [facility] JULIA SMITH. ON 3 LITERS NASAL CANULA WITH OXYGEN SATURATION AT 99%. ATTACHED TO BEDSIDE MONITOR READING SINUS RHYTHM. PATIENT ALERT AND ORIENTED TIMES ZERO, NONVERBAL. PEG SITE NOTED, CLAMPED AT THIS TIME. PATIENTS MICHAELS DRAINING OUTPUT. IV ACCESS ON LEFT WRIST 20 GAUGE AND RIGHT UPPER ARM PICC LINE. INFUSING 1 UNIT PACKED RBCS AT THIS TIME. SAFETY MEASURES IMPLEMENTED, BED IN LOWEST POSITION, CALL LIGHT WITHIN REACH. WILL CONTINUE PLAN OF CARE AND ANTICIPATE NEEDS.
[2022-06-18] MEDS: VANCOMYCIN 500 MG in IV D5W 100ml IV SCH (08:12)
[2022-06-18] MEDS: PANTOPRAZOLE 40 MG VIAL IV SCH ×2 (08:13→17:43)
[2022-06-18] MEDS: AMLODIPINE BESYLATE 5 MG TABLET GT SCH (08:13)
[2022-06-18] MEDS: ACIDOPHILUS/BULGARICUS 1 EACH TAB.CHEW GT SCH (08:13)
--- NOTE | 2022-06-18 08:22 | NUR ---
WOUND CARE CONSULT: PT PRESENTS WITH SACRAL STAGE 4 ULCER, BILATERAL BUTTOCK INTACT DEEP TISSUE INJURIES WITH SCARRING AND FOOT WOUNDS, PRESENT ON ADMISSION. DR DUMONT AND DR PARDO CALLED FOR SURGICAL AND DPM CONSULTS. DISCUSSED SKIN PROTECTION WITH NURSING STAFF. [facility] IN AGREEMENT WITH PLAN OF CARE.
--- NOTE | 2022-06-18 08:39 | NUR ---
deep suctioned patient, copious red secretions suctioned out. airway now patent will continue to assess and make interventions as necessary
[2022-06-18] MEDS ORDERED: ASCO-340 GT (08:45)
[2022-06-18] MEDS ORDERED: LACT-209 GT (08:45)
[2022-06-18] MEDS ORDERED: PANT40SU2 GT (08:45)
[2022-06-18] MEDS ORDERED: ZINC50TA65 GT (08:45)
[2022-06-18] MEDS ORDERED: FERR300L GT (08:45)
[2022-06-18] MEDS ORDERED: ACET-868 GT ×2 (08:45)
--- NOTE | 2022-06-18 09:00 | NUR ---
BLOOD PRODUCT INFUSED. PATIENT TOLERATED WELL. POST TRANSFUSION VITALS DOCUMENTED AT 0900. WILL CONTINUE PLAN OF CARE AND ANTICIPATE NEEDS.
[2022-06-18] MEDS: POTASSIUM PHOSPHATE MM 7.5 MMOL in IV NS 0.9% 100 ML IV SCH ×2 (09:43→12:52)
[2022-06-18] MEDS: IV NS 0.9% 250 ML IV PRN (10:33)
[2022-06-18 10:42] LABS: BAND % (MANUAL) 7 % (0.0-5.0); LYMPHOCYTES % (MANUAL) 12 % (16-48); MONOCYTES % (MANUAL) 1 % (0-11.0); NEUTROPHILS % (MANUAL) 80 (42-76)
[2022-06-18] MEDS: SOD FERRIC GLUC 125 MG in IV NS 0.9% 100 ML IV SCH (13:52)
[2022-06-18 14:58] LABS: OCCULT BLOOD STOOL POSITIVE (NEGATIVE)
--- NOTE | 2022-06-18 19:08 | NUR ---
HAND OFF REPORT GIVEN TO NIGHTSHIFT REGISTRY NURSE FOR CONTINUATION OF CARE.
--- NOTE | 2022-06-18 19:20 | NUR ---
Pt. report received from primary day RN. Pt. received in bed on rn cardiac depicting NSR. Complete inital assessment rendered. See nursing notes for details. Pt. awakens but not interactive. Coughs intermitently. Coarse rhonchi noted to anterior chest martinez bilat. Sp02 at 98% NC @ 3l/m. Pt. monitored for acute distress, VS, and pain.
[2022-06-18] MEDS: VANCOMYCIN HCL 0.75 GM in IV D5W 250 ML IV SCH (20:46)
[2022-06-18] MEDS: DAKINS QUARTER STRENGTH (0.125%) 480 ML BOTTLE TOP SCH (20:46)
[2022-06-19] VITALS (28 sets, daily range): BP systolic 96–141; BP diastolic 46–65
[2022-06-19] MEDS: BLOOD SUGAR DIAGNOSTIC 1 EACH STRIP IN SCH ×4 (00:15→17:29)
[2022-06-19] MEDS: PIPERACILLIN /TAZOBACTAM 3.375 G in IV D5W 50 ML IV SCH ×5 (00:33→23:13)
--- NOTE | 2022-06-19 01:31 | NUR ---
Pt.cleansed of moderate amount of black stool. Pudding consistency. Sacral and lateral foot drsgs changed as per wound care instructions. See nursing flow sheet for details of wound . Pt. is contracted, attempts to align body unsucessful. Pillows to bony prominences, heels off-loaded. Monitored for acute distress.
[2022-06-19] MEDS: IPRATROPIUM NEB FS 0.5 MG/2.5 ML AMPUL.NEB NEB SCH ×4 (01:58→19:48)
[2022-06-19] MEDS: IV NS 0.9% 1,000 ML IV SCH ×2 (03:26→16:15)
--- NOTE | 2022-06-19 03:48 | NUR ---
Consent for debridement not obtained as of yet. Will endorse to mohini RN. As per Shar HAYWARD debridement will be scheduled once HGB stable>48hrs.
[2022-06-19 05:57] LABS: BASOPHILS % (AUTO) 0.2 % (0.0-2.0); EOSINOPHILS % (AUTO) 0.2 % (0.0-6.0); LYMPHOCYTES # (AUTO) 2.1 K/uL (0.8-4.8); LYMPHOCYTES % (AUTO) 14.2 % (20.0-44.0); MEAN CORPUSCULAR HGB CONC 33 g/dl (31.0-36.0); MEAN CORPUSCULAR VOLUME 88 fL (82-100); MONOCYTES # (AUTO) 0.6 K/uL (0.1-1.30); MONOCYTES % (AUTO) 4.4 % (2.0-12.0); NEUTROPHILS # (AUTO) 11.8 K/uL (1.8-8.9); PLATELET COUNT (AUTO) 243 K/uL (150-450); RED BLOOD CELL COUNT(AUTO) 2.29 MIL/uL (4.0-5.2); WHITE BLOOD COUNT (AUTO) 14.6 K/uL (4.3-11.0)
[2022-06-19 06:05] LABS: HEMATOCRIT 20 % (33-45)
[2022-06-19 06:06] LABS: HEMOGLOBIN 6.6 g/dL (11.5-14.8)
[2022-06-19] MEDS: IV D5/ 0.9% NACL 1,000 ML IV PRN ×2 (06:34→22:12)
[2022-06-19 06:54] LABS: CALCIUM, SERUM 8.2 mg/dL (8.5-10.1); CHLORIDE 111 mmol/L (98-107); CREATININE 0.3 mg/dL (0.6-1.3); GLUCOSE 93 mg/dL (74-106); POTASSIUM 2.6 mmol/L (3.5-5.1); SODIUM SERUM 145 mmol/L (136-145); UREA NITROGEN, BLOOD 8 mg/dL (7-18)
[2022-06-19 06:58] LABS: CARBON DIOXIDE 25 mmol/L (21-32)
--- NOTE | 2022-06-19 07:00 | NUR ---
Critical labs called to [facility] ER PHYSICIAN. K+ =2.3 and HGB 6.6 CRIT= 20. T.O for 80 meq. KCL IV to be given as per protocol. Transfuse 1unit PRBC. Pt. endorsed to oncoming day primary RN injury free. Bed in low, 2 siderails up. Pt. glucose at 88mg/dl this a.m. PIV changed to D59NS at 75 cc/hr.
--- NOTE | 2022-06-19 07:05 | NUR ---
[facility]. ON 3 LITERS NASAL CANULA WITH OXYGEN SATURATION AT 100%. ATTACHED TO BEDSIDE MONITOR READING SINUS RHYTHM. PATIENT ALERT AND ORIENTED TIMES ZERO, NONVERBAL. PEG SITE NOTED, CLAMPED AT THIS TIME. PATIENTS MICHAELS DRAINING OUTPUT. IV ACCESS ON LEFT WRIST 20 GAUGE AND RIGHT UPPER ARM PICC LINE. INFUSING FLUIDS ORDERED. SAFETY MEASURES IMPLEMENTED, BED IN LOWEST POSITION, CALL LIGHT WITHIN REACH. WILL CONTINUE PLAN OF CARE AND ANTICIPATE NEEDS.
[2022-06-19] MEDS: POTASSIUM CL. PREMIX PERIPHER. 50 ML IV SCH ×8 (07:40→15:01)
[2022-06-19] MEDS: VANCOMYCIN HCL 0.75 GM in IV D5W 250 ML IV SCH ×2 (07:48→20:50)
[2022-06-19] MEDS ORDERED: POTASSIUM CL. PREMIX PERIPHER. 50 ML IV SCH (08:00)
[2022-06-19] MEDS: ACIDOPHILUS/BULGARICUS 1 EACH TAB.CHEW GT SCH (08:17)
[2022-06-19] MEDS: PANTOPRAZOLE 40 MG VIAL IV SCH ×2 (08:18→17:29)
[2022-06-19] MEDS: AMLODIPINE BESYLATE 5 MG TABLET GT SCH (08:18)
[2022-06-19] MEDS: DAKINS QUARTER STRENGTH (0.125%) 480 ML BOTTLE TOP SCH (08:18)
[2022-06-19] MEDS: THERAHONEY GEL 1.5 OZ TUBE TP SCH (08:19)
[2022-06-19] MEDS: SOD FERRIC GLUC 125 MG in IV NS 0.9% 100 ML IV SCH (14:18)
[2022-06-19 14:37] LABS: BASOPHILS % (MANUAL) 0 % (0.0-2.0); EOSINOPHILS % (MANUAL) 0 % (0-4); LYMPHOCYTES % (MANUAL) 9 % (16-48); MONOCYTES % (MANUAL) 3 % (0-11.0); NEUTROPHILS % (MANUAL) 88 (42-76)
--- NOTE | 2022-06-19 16:00 | NUR ---
BLOOD TRANSFUSION STARTED. PRETRANSFUSION VITAL SIGNS LOGGED IN TRANS FUSION MENU. WILL ASSESS PATIENT THROUGHOUT INFUSION.
--- NOTE | 2022-06-19 16:15 | NUR ---
NON ADMIN FOR NORMAL SALINE. PATIENT ON 5% DEXTROSE WITH NORMAL SALINE PRN RUNNING AT 75MLS/HR
--- NOTE | 2022-06-19 16:19 | NUR ---
PATIENT TOLERATING BLOOD TRANSFUSION WELL. INCREASED INFUSION RATE FROM 75 MLS/HR TO 104 MLS/HR. WILL CONTINUE TO ASSESS AND MAKE ADJUSTMENTS NEEDED
--- NOTE | 2022-06-19 17:24 | NUR ---
PATIENT TOLERATING BLOOD TRANSFUSION WELL. INFUSION RATE INCREASED TO 125 MLS/HR
[2022-06-19] MEDS: IV NS 0.9% 250 ML IV PRN (18:29)
--- NOTE | 2022-06-19 18:59 | NUR ---
PATIENT TOLERATED BLOOD TRANSFUSION WELL. POST TRANSFUSION VITAL SIGNS ARE FOLLOWS. TEMP-97.4 PULSE-64 RESPIRATORY RATE: 13 SPO2: 100% BLOOD PRESSURE: 141/61
--- NOTE | 2022-06-19 19:06 | NUR ---
PATIENT ENDORSED TO NIGHTSHIFT JULIA TERESA FOR CONTINUATION OF CARE.
--- NOTE | 2022-06-19 19:52 | NUR ---
DIGITAL PRINTER OPERATOR. INITIAL ASSESSMENT. RECEIVED THE PT REST IN BED, PT IS OBTUNDED. HOB ELEVATED. FLORENTINO LOWER EXTREMITY CONTRACTED, HOB ELEVATED. OXYGEN 2 L VIA NASAL CANNULA. IV RT UPPER ARM PICC LINE. LT HAND 20G. FC PATENT. WILL CONTINUE TO MONITOR VITALS..
[2022-06-19] MEDS: MUPIROCIN OINT 2% 22 GM TUBE NS SCH (21:52)
[2022-06-20] VITALS (24 sets, daily range): BP systolic 105–144; BP diastolic 55–71
[2022-06-20] MEDS: IPRATROPIUM NEB FS 0.5 MG/2.5 ML AMPUL.NEB NEB SCH ×4 (01:30→19:27)
[2022-06-20] MEDS: BLOOD SUGAR DIAGNOSTIC 1 EACH STRIP IN SCH ×4 (01:59→17:13)
--- NOTE | 2022-06-20 04:16 | NUR ---
PAYROLL ACCOUNTANT. AM CARE GIVEN REMAINING SAME OXYGEN TOLERATED WELL. SAT 98%. NO ACUTE DISTRESS NOTED. WELL CONTROL INSTRUCTOR SHOWING NSR. FC PATENT URINE DRAINING. HOB ELEVATED. GT INTACT. TURN AND REPOSITION Q2HH WILL CONTINUE TO MONITOR VITALS.
[2022-06-20] MEDS: PIPERACILLIN /TAZOBACTAM 3.375 G in IV D5W 50 ML IV SCH ×3 (05:05→17:13)
[2022-06-20 05:55] LABS: BASOPHILS % (AUTO) 0.2 % (0.0-2.0); EOSINOPHILS % (AUTO) 2.3 % (0.0-6.0); HEMATOCRIT 25 % (33-45); HEMOGLOBIN 8.3 g/dL (11.5-14.8); LYMPHOCYTES # (AUTO) 2.3 K/uL (0.8-4.8); LYMPHOCYTES % (AUTO) 22.1 % (20.0-44.0); MEAN CORPUSCULAR HGB CONC 34 g/dl (31.0-36.0); MEAN CORPUSCULAR VOLUME 88 fL (82-100); MONOCYTES # (AUTO) 0.5 K/uL (0.1-1.30); MONOCYTES % (AUTO) 5.1 % (2.0-12.0); NEUTROPHILS # (AUTO) 7.1 K/uL (1.8-8.9); NEUTROPHILS % (AUTO) 70.3 % (43.0-81.0); PLATELET COUNT (AUTO) 243 K/uL (150-450); RED BLOOD CELL COUNT(AUTO) 2.77 MIL/uL (4.0-5.2); WHITE BLOOD COUNT (AUTO) 10.2 K/uL (4.3-11.0)
[2022-06-20 06:20] LABS: CALCIUM, SERUM 8.1 mg/dL (8.5-10.1); CARBON DIOXIDE 25 mmol/L (21-32); CHLORIDE 106 mmol/L (98-107); CREATININE 0.4 mg/dL (0.6-1.3); GLUCOSE 109 mg/dL (74-106); SODIUM SERUM 138 mmol/L (136-145); UREA NITROGEN, BLOOD 2 mg/dL (7-18)
[2022-06-20 06:44] LABS: POTASSIUM 2.3 mmol/L (3.5-5.1)
--- NOTE | 2022-06-20 07:00 | NUR ---
RN NOTES RECEIVED PT ON BED, RESPONDS TO PAINFUL STIMULI, NON VERBAL , DOES NOT FOLLOW COMMAND, EXTREMITIES ARE CONTRACTED, ON 3L O2 , N/C , O2 SAT IN LOW 90'S , GT CLAMPED, MICHAELS DRAINING TO GRAVITY , IV SITE CDI, IVF AT 75CC/HR RUNNING , SR UP x3, CALL LIGHT WITHIN EASY REACH, BED LOCKED AND IN LOWEST POSITION, CONTINUE TO MONITOR
[2022-06-20] MEDS ORDERED: POTASSIUM CL. PREMIX PERIPHER. 50 ML IV SCH (07:30)
[2022-06-20] MEDS: POTASSIUM CL. PREMIX PERIPHER. 50 ML IV SCH ×8 (07:54→15:19)
[2022-06-20] MEDS: ACIDOPHILUS/BULGARICUS 1 EACH TAB.CHEW GT SCH (08:11)
[2022-06-20] MEDS: PANTOPRAZOLE 40 MG VIAL IV SCH ×2 (08:11→16:46)
[2022-06-20] MEDS: AMLODIPINE BESYLATE 5 MG TABLET GT SCH (08:15)
[2022-06-20] MEDS: MUPIROCIN OINT 2% 22 GM TUBE NS SCH ×2 (08:15→22:08)
[2022-06-20] MEDS: DAKINS QUARTER STRENGTH (0.125%) 480 ML BOTTLE TOP SCH (08:16)
[2022-06-20] MEDS: THERAHONEY GEL 1.5 OZ TUBE TP SCH (08:16)
[2022-06-20] MEDS: VANCOMYCIN HCL 0.75 GM in IV D5W 250 ML IV SCH ×2 (09:06→19:59)
--- NOTE | 2022-06-20 12:00 | NUR ---
RN NOTES BLACK LOOSE STOOL NOTED WITH FOUL SMELL .
[2022-06-20] MEDS: SOD FERRIC GLUC 125 MG in IV NS 0.9% 100 ML IV SCH (14:11)
[2022-06-20] MEDS: INSULIN REGULAR, HUMAN 100 UNIT/ML 3 ML VIAL SQ PRN (17:13)
--- NOTE | 2022-06-20 18:29 | NUR ---
RN NOTES PT REMAINS ON 2L O2 N/C , O2 SAT WNL, MICHAELS DRAINING TO GRAVITY, IV SITE CDI, ONE LOOSE BACK STOOL NOTED ON THIS SHIFT, WILL ENDORE TO PATTERN CLEANER NURSE FOR CONTINUITY OF CARE .
--- NOTE | 2022-06-20 19:35 | NUR ---
FAMILY SUPPORT COORDINATOR. INITIAL ASSESSMENT. RECEIVED THE PT REST IN BED. AWAKE, ALERT. OPEN HER EYES. DOES NOT FOLLOW COMMANDS. HATCHERY MANAGER SHOWING NSR. IV RT UPPER ARM PICC LINE . IVF D5NS 75 ML/H. FC PATENT. URINE DRAINING. HOB ELEVATED. OXYGEN 2L VIA NASAL CANNULA. SAT 96%. NO ACUTE DISTRESS NOTED. GT CLAMPED. WILL CONTINUE TO MONITOR VITALS.
[2022-06-20] MEDS: IV NS 0.9% 250 ML IV PRN (19:57)
[2022-06-21] VITALS (24 sets, daily range): BP systolic 105–146; BP diastolic 55–86
[2022-06-21] MEDS: PIPERACILLIN /TAZOBACTAM 3.375 G in IV D5W 50 ML IV SCH ×4 (00:03→18:07)
[2022-06-21] MEDS: IV D5/ 0.9% NACL 1,000 ML IV PRN ×2 (00:03→13:56)
[2022-06-21] MEDS: BLOOD SUGAR DIAGNOSTIC 1 EACH STRIP IN SCH ×4 (00:03→18:35)
[2022-06-21] MEDS: IPRATROPIUM NEB FS 0.5 MG/2.5 ML AMPUL.NEB NEB SCH ×4 (01:38→19:30)
--- NOTE | 2022-06-21 04:53 | NUR ---
HEATER OPERATOR AM CARE GIVEN. REMAINING SAME OXYGEN TOLERATED WELL.HOB ELEVATED, FC PATENT UE=RINE DRAINING. HOB ELEVATED, TURN AND REPOSITION Q2H. WILL CONTINUE TO MONITOR VITALS.
[2022-06-21 05:06] LABS: BASOPHILS % (AUTO) 0.3 % (0.0-2.0); EOSINOPHILS % (AUTO) 3.3 % (0.0-6.0); HEMATOCRIT 28 % (33-45); HEMOGLOBIN 9.2 g/dL (11.5-14.8); LYMPHOCYTES % (AUTO) 16.5 % (20.0-44.0); MEAN CORPUSCULAR HGB CONC 33 g/dl (31.0-36.0); MEAN CORPUSCULAR VOLUME 88 fL (82-100); MONOCYTES # (AUTO) 0.7 K/uL (0.1-1.30); MONOCYTES % (AUTO) 5.4 % (2.0-12.0); NEUTROPHILS # (AUTO) 9.2 K/uL (1.8-8.9); NEUTROPHILS % (AUTO) 74.5 % (43.0-81.0); PLATELET COUNT (AUTO) 268 K/uL (150-450); RED BLOOD CELL COUNT(AUTO) 3.13 MIL/uL (4.0-5.2); WHITE BLOOD COUNT (AUTO) 12.3 K/uL (4.3-11.0)
[2022-06-21 05:24] LABS: CALCIUM, SERUM 8.1 mg/dL (8.5-10.1); CARBON DIOXIDE 26 mmol/L (21-32); CHLORIDE 106 mmol/L (98-107); CREATININE 0.3 mg/dL (0.6-1.3); GLUCOSE 105 mg/dL (74-106); UREA NITROGEN, BLOOD 3 mg/dL (7-18)
[2022-06-21 05:28] LABS: SODIUM SERUM 139 mmol/L (136-145)
[2022-06-21 05:30] LABS: POTASSIUM 2.4 mmol/L (3.5-5.1)
[2022-06-21] MEDS: POTASSIUM CL. PREMIX PERIPHER. 50 ML IV SCH ×10 (06:51→16:24)
[2022-06-21] MEDS ORDERED: POTASSIUM CL. PREMIX PERIPHER. 50 ML IV SCH (07:30)
--- NOTE | 2022-06-21 07:54 | NUR ---
DR HESTER SEEN/VISITED PATIENT NOW.
[2022-06-21] MEDS: VANCOMYCIN HCL 0.75 GM in IV D5W 250 ML IV SCH ×2 (08:20→20:37)
[2022-06-21 08:56] LABS: MAGNESIUM 1.3 mg/dL (1.8-2.4); PHOSPHORUS 1.7 mg/dL (2.5-4.9)
[2022-06-21] MEDS: AMLODIPINE BESYLATE 5 MG TABLET GT SCH (09:13)
[2022-06-21] MEDS: PANTOPRAZOLE 40 MG VIAL IV SCH ×2 (09:13→16:24)
[2022-06-21] MEDS: DAKINS QUARTER STRENGTH (0.125%) 480 ML BOTTLE TOP SCH (09:14)
[2022-06-21] MEDS: ACIDOPHILUS/BULGARICUS 1 EACH TAB.CHEW GT SCH (09:14)
[2022-06-21] MEDS: THERAHONEY GEL 1.5 OZ TUBE TP SCH (09:15)
[2022-06-21] MEDS: MUPIROCIN OINT 2% 22 GM TUBE NS SCH ×2 (09:15→20:38)
[2022-06-21] MEDS: Magnesium 1GM/D5W 100ML PREMIX 100 ML IV SCH ×3 (12:53→14:52)
[2022-06-21] MEDS: SOD FERRIC GLUC 125 MG in IV NS 0.9% 100 ML IV SCH (15:15)
[2022-06-21] MEDS ORDERED: Sodium Phosphate 15 MMOL in IV NS 0.9% 245 ML IV SCH ×2 (15:30→20:00)
--- NOTE | 2022-06-21 19:15 | NUR ---
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 received the pt rest in bed. awake, alert. does not follow commands.potline monitor showing nsr. oxygen 2l via n/c. sat 98%. no acute distress noted. iv rt upper arm picc line. ivf d5ns 75 ml/h, hob elevated. gt intact. npo. will continue to monitor vitals.
--- NOTE | 2022-06-21 19:41 | NUR ---
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 at 1930.
--- NOTE | 2022-06-21 20:10 | NUR ---
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 RECEIVED THE PT FROM OR VIA PT BED, PT IS SLEEPING. VITALS STABLE. WILL MONITOR. {TODAY PLANNING TO EGD}
[2022-06-21] MEDS ORDERED: MEROPENEM 500 MG VIAL IV ONE (22:34)
[2022-06-21] MEDS: MEROPENEM 500 MG in IV NS 0.9% 50 ML IV SCH (22:49)
[2022-06-22] VITALS (17 sets, daily range): BP systolic 121–152; BP diastolic 60–79
[2022-06-22] MEDS: IPRATROPIUM NEB FS 0.5 MG/2.5 ML AMPUL.NEB NEB SCH ×4 (01:03→20:05)
[2022-06-22] MEDS: BLOOD SUGAR DIAGNOSTIC 1 EACH STRIP IN SCH ×5 (01:20→23:50)
--- NOTE | 2022-06-22 03:40 | NUR ---
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 remaining same oxygen tolerated well. sat 98%. no acute distress noted. manager monitoring showing nsr. iv rt upper arm picc line. ivf d5ns 75 ml/h. fc patent. urine draining, hob elevated. turn and reposition q2h. will continue to monitor vitals.
[2022-06-22 04:48] LABS: BASOPHILS % (AUTO) 0.3 % (0.0-2.0); EOSINOPHILS % (AUTO) 9.9 % (0.0-6.0); HEMATOCRIT 27 % (33-45); HEMOGLOBIN 9.1 g/dL (11.5-14.8); LYMPHOCYTES # (AUTO) 1.8 K/uL (0.8-4.8); LYMPHOCYTES % (AUTO) 17.7 % (20.0-44.0); MEAN CORPUSCULAR HGB CONC 34 g/dl (31.0-36.0); MEAN CORPUSCULAR VOLUME 89 fL (82-100); MONOCYTES # (AUTO) 0.7 K/uL (0.1-1.30); MONOCYTES % (AUTO) 7.2 % (2.0-12.0); NEUTROPHILS # (AUTO) 6.5 K/uL (1.8-8.9); NEUTROPHILS % (AUTO) 64.9 % (43.0-81.0); PLATELET COUNT (AUTO) 295 K/uL (150-450); RED BLOOD CELL COUNT(AUTO) 2.97 MIL/uL (4.0-5.2)
[2022-06-22 04:56] LABS: CARBON DIOXIDE 23 mmol/L (21-32); CHLORIDE 111 mmol/L (98-107); CREATININE 0.4 mg/dL (0.6-1.3); SODIUM SERUM 143 mmol/L (136-145)
[2022-06-22 06:00] LABS: CALCIUM, SERUM 8.2 mg/dL (8.5-10.1); GLUCOSE 122 mg/dL (74-106); MAGNESIUM 1.9 mg/dL (1.8-2.4); PHOSPHORUS 2.9 mg/dL (2.5-4.9); UREA NITROGEN, BLOOD 2 mg/dL (7-18)
[2022-06-22 06:03] LABS: POTASSIUM 2.9 mmol/L (3.5-5.1)
[2022-06-22] MEDS: POTASSIUM CL. PREMIX PERIPHER. 50 ML IV SCH ×6 (06:42→12:45)
[2022-06-22] MEDS: THERAHONEY GEL 1.5 OZ TUBE TP SCH (08:22)
[2022-06-22] MEDS: MUPIROCIN OINT 2% 22 GM TUBE NS SCH ×2 (08:22→22:18)
[2022-06-22] MEDS: DAKINS QUARTER STRENGTH (0.125%) 480 ML BOTTLE TOP SCH (08:23)
[2022-06-22] MEDS: PANTOPRAZOLE 40 MG VIAL IV SCH ×2 (08:26→17:17)
[2022-06-22] MEDS: ACIDOPHILUS/BULGARICUS 1 EACH TAB.CHEW GT SCH (08:26)
[2022-06-22] MEDS: AMLODIPINE BESYLATE 5 MG TABLET GT SCH (08:27)
[2022-06-22] MEDS: MEROPENEM 500 MG in IV NS 0.9% 50 ML IV SCH (08:27)
[2022-06-22] MEDS: IV D5/ 0.9% NACL 1,000 ML IV PRN (08:48)
[2022-06-22] MEDS ORDERED: GLUCERNA 1.2 1,000 ML BOTTLE NG PRN (10:00)
--- NOTE | 2022-06-22 10:22 | NUR ---
ICU/RN REPORT GIVEN AT BEDSIDE TO ELI 3WEST RN FOR DARWIN. PT STABLE ON 2L O2 NC AT THIS TIME, NO SIGNS OF LABORED BREATHING
--- NOTE | 2022-06-22 10:45 | NUR ---
RECEIVED PATIENT FROM ICU ROOM [address] TO [address] [place] [address] [id number] 1 Patient arrived to [address] [place] [address], via bed from ICU at 10:30 AM. Patient appears comfortable, breathing even and regular on oxygen @ 2 LPM via NC. No signs of distress nor pain at the moment. Has Padilla catheter draining to gravity clear, yellow urine into CD bag. On site monitor patient has sinus rythym in the 80s for HR. Vital signs on arrival were BP = 134/72, HR = 86, RR = 19, Temp. = 98.9F oral, O2Sat.= 96%. Patient has clamped, intact G-tube. Patent, flushed, dual lumen PICC line intact with intact biopatch and clean/ dry/intact dressing. IV fluid of D5 NS infusing @ 75mLs/hr through PICC line.Safety from fall precautions maintained: bed alarm on; 3 bed side rails up; bed in lowest position; bed brakes locked on; and leonardo belll/light within reach. Aspiration precautions maintained with HOB up at all times. Will continue to care for and monitor patient per MD's POC.
--- NOTE | 2022-06-22 14:00 | NUR ---
UPDATE WHITE SOURER NOTE ( 3 WEST DAYSHIFT) Started to infuse Glucerna 1.2 tube feeding at 50mLs/hour as MD ordered after checking G-tube placement and for residual. Only 10 Mls residual after flushing with 30mLs water. Aspiration precautions maintained with HOB at 45degrees angle. Will continue to care for and monitor patient per MD POC.
[2022-06-22] MEDS: SOD FERRIC GLUC 125 MG in IV NS 0.9% 100 ML IV SCH (14:09)
[2022-06-22] MEDS: INSULIN REGULAR, HUMAN 100 UNIT/ML 3 ML VIAL SQ PRN ×2 (17:30→23:51)
--- NOTE | 2022-06-22 18:54 | NUR ---
BIOLOGY TUTOR CLOSING NOTE (DAYSHIFT) Patient resting comfortably, intermittently sleeping, breathing regular, even breaths without distress on oxygen via NC. Telemetry continues to be sinus rythym in the 80s for bpm. Turning patient every 2 hours. All medications and treatments done as ordered. PICC line to right uper arm remains clean/dry/intact. Patient tolerating tube feeding glucerna 1.2 @ 50mLs/hr well with zero residual. Safety precautions maintained. Aspiration precautions maintained. Will endorse to shift production associate nurseMayra, for DARWIN.
--- NOTE | 2022-06-22 19:00 | NUR ---
RN OPENING NOTES RECEIVED PATIENT REPORT FROM NURSE ELI. PT IS OBTUNDED WITH OPEN EYES. PT IS ON O2 INHALATION VIA NASAL CANNULA @ 2LPM, O2 SAT 100%, TOLERATING WELL, BREATHING EVEN AND UNLABORED @THIS TIME. PT IV ACCESS IS ON LEFT WRIST #22G SALINE LOCK & RIGHT UPPER ARM PICC LINE RUNNING D5NS @ 75MLS/HR, PATENT, INTACT AND FLUSHES WELL WITH NO S & SX OF INFILTRATION @ SITE NOTED. PT ON TELE MONITOR WITH CURRENT READING OF SR, HR 80BPM. PT GTUBE IS IN PLACE RUNNING GLUCERNA @50MLS/HR, WITH 10ML RESIDUAL. PT MICHAELS CATHETER IS IN PLACE DRAINING YELLOW COLORED URINE. SAFETY MEASURES IS IN PLACE . BED AT ITS LOWEST AND LOCKED POSITION. SIDE RAILS UP X 4. BEDSIDE TABLE AND CALL LIGHT IS EASY REACH. BED ALARM IS ON,. WILL CONTINUE TO MONITOR PT. ACCORDINGLY.
[2022-06-22] MEDS ORDERED: MEROPENEM 1 G in IV NS 0.9% 100 ML IV SCH (21:00)
--- NOTE | 2022-06-22 21:00 | NUR ---
PT REPOSITION BY SATNAM MOLINA.
[2022-06-22] MEDS ORDERED: MEROPENEM 1 G VIAL IV ONE (21:30)
--- NOTE | 2022-06-22 23:51 | NUR ---
INSULIN REGULAR NON ADMINISTERED DUE TO PT GLUCOSE OF 117.
[2022-06-23] VITALS: BP_SYST 116; BP_SYST 147; BP_DIAS 62; BP_DIAS 79
[2022-06-23] MEDS: IV D5/ 0.9% NACL 1,000 ML IV PRN (01:31)
[2022-06-23] MEDS: IPRATROPIUM NEB FS 0.5 MG/2.5 ML AMPUL.NEB NEB SCH ×3 (01:48→14:02)
[2022-06-23 04:00] VITALS: BP_SYST 116; BP_SYST 133; BP_DIAS 56; BP_DIAS 62
[2022-06-23] MEDS: BLOOD SUGAR DIAGNOSTIC 1 EACH STRIP IN SCH ×2 (05:15→12:18)
[2022-06-23] MEDS: INSULIN REGULAR, HUMAN 100 UNIT/ML 3 ML VIAL SQ PRN ×2 (05:19→12:19)
--- NOTE | 2022-06-23 06:28 | NUR ---
RN CLOSING NOTES PT IS AWAKE IN BED. PT IS ON O2 INHALATION VIA NASAL CANNULA @ 2LPM, O2 SAT 100%. NO REPIRATORY DISTRESS @THIS TIME. PT IV ACCESS IS ON LEFT WRIST #22G SALINE LOCK & RIGHT UPPER ARM PICC LINE RUNNING D5NS @ 75MLS/HR, PATENT, INTACT AND FLUSHES WELL WITH NO S & SX OF INFILTRATION @ SITE NOTED. PT ON TELE MONTIOR WITH CURRENT READING OF SR, HR 89 BPM. PT GTUBE IS IN PLACE RUNNING GLUCERNA @50MLS/HR. PT MICHAELS CATHER IS IN PLACE DRANING YELLOW COLORED URINE. ADMINISTERED ALL MEDICATIONS ACCORDINGLY PER MD'S ORDER. SAFETY MEASURES IS IN PLACE . BED AT ITS LOWEST AND LOCKED POSITION. SIDE RAILS UP X 4. BEDSIDE TABLE AND CALL LIGHT IS EASY REACH. BED ALARM IS ON. WILL ENDORSE TO THE NEXT SHIFT FOR CONTINUITY OF CARE.
[2022-06-23 06:41] LABS: BASOPHILS % (AUTO) 0.5 % (0.0-2.0); EOSINOPHILS % (AUTO) 11.9 % (0.0-6.0); HEMATOCRIT 31 % (33-45); LYMPHOCYTES # (AUTO) 2.1 K/uL (0.8-4.8); LYMPHOCYTES % (AUTO) 20.4 % (20.0-44.0); MEAN CORPUSCULAR HGB CONC 33 g/dl (31.0-36.0); MEAN CORPUSCULAR VOLUME 92 fL (82-100); MONOCYTES # (AUTO) 0.6 K/uL (0.1-1.30); MONOCYTES % (AUTO) 6.3 % (2.0-12.0); NEUTROPHILS # (AUTO) 6.3 K/uL (1.8-8.9); NEUTROPHILS % (AUTO) 60.9 % (43.0-81.0); PLATELET COUNT (AUTO) 142 K/uL (150-450); RED BLOOD CELL COUNT(AUTO) 3.31 MIL/uL (4.0-5.2); WHITE BLOOD COUNT (AUTO) 10.3 K/uL (4.3-11.0)
[2022-06-23 07:00] VITALS: BP 129/62
[2022-06-23 07:11] LABS: CALCIUM, SERUM 8.4 mg/dL (8.5-10.1); CARBON DIOXIDE 21 mmol/L (21-32); CHLORIDE 112 mmol/L (98-107); CREATININE 0.4 mg/dL (0.6-1.3); GLUCOSE 159 mg/dL (74-106); PHOSPHORUS 2.2 mg/dL (2.5-4.9); POTASSIUM 3.6 mmol/L (3.5-5.1); SODIUM SERUM 143 mmol/L (136-145); UREA NITROGEN, BLOOD 5 mg/dL (7-18)
--- NOTE | 2022-06-23 07:15 | NUR ---
TEL E RN OPENING NOTES RECEIVED PT IN BED WITH HOB ELEVATED, PT IS OBTUNDED WITH EYES OPENING, ON O2 @ 2LPM VIA NC SATURATING AT 100%, TOLERATING WELL, BREATHING EVEN AND UNLABORED. HAS IV ACCESS IS ON RIGHT UPPER ARM PICC LINE RUNNING D5NS @ 75MLS/HR, PATENT, INTACT AND FLUSHING WELL, WITH NO S & SX OF INFILTRATION @ SITE NOTED, LEFT WRIST #22G SALINE LOCK, SHOWING REDNESS - REMOVED AND GAUZE APPLIED WITH NO BLEEDING. TELE MONITORING SHOWING WITH CURRENT READING OF SR 97 HR. ON G-TUBE FEEDING WITH GLUCERNA 1.2 @50MLS/HR X 20 HOURS, WITH 15ML RESIDUAL. ON HOLD RIGHT NOW UNTIL 1100. WITH MICHAESL CATHETER IS IN PLACE DRAINING PALE YELLOW URINE WITH NO SEDIMENTS OR BLOOD NOTED. SAFETY MEASURES IS IN PLACE: BED AT ITS LOWEST AND LOCKED POSITION. SIDE RAILS UP X3, BED ALARM ON, BEDSIDE TABLE AND CALL LIGHT WITHIN EASY REACH.WILL CONTINUE TO MONITOR PATIENT.
[2022-06-23] MEDS: ACIDOPHILUS/BULGARICUS 1 EACH TAB.CHEW GT SCH (08:50)
[2022-06-23] MEDS: AMLODIPINE BESYLATE 5 MG TABLET GT SCH (08:50)
[2022-06-23] MEDS: PANTOPRAZOLE 40 MG VIAL IV SCH ×2 (08:51→16:30)
--- NOTE | 2022-06-23 09:15 | NUR ---
RN NOTES - WOUND TREATMENT ON LEFT HEEL AND SACRUM. GIVEN ORDERED, TURNED ON THE LEFT SIDE, OFFLOADED BILATERAL LOWER EXTREMITIES
[2022-06-23] MEDS: MUPIROCIN OINT 2% 22 GM TUBE NS SCH (09:24)
[2022-06-23] MEDS: THERAHONEY GEL 1.5 OZ TUBE TP SCH (09:25)
[2022-06-23] MEDS: DAKINS QUARTER STRENGTH (0.125%) 480 ML BOTTLE TOP SCH (09:25)
[2022-06-23] MEDS ORDERED: NEUTRA PHOS 1 POWD.PACKET GT ONE (10:00)
[2022-06-23] MEDS ORDERED: MERO500V23 IV (10:03)
[2022-06-23 12:00] VITALS: BP 131/72
[2022-06-23] MEDS ORDERED: MEROPENEM 1 G in IV NS 0.9% 100 ML IV SCH (13:00)
--- NOTE | 2022-06-23 17:24 | NUR ---
PAPER COATING SUPERVISOR DISCHARGE NOTE PT DISCHARGE TO [facility] IN STABLE CONDITION. PT IS OBTUNDED, OPENS EYES, AFEBRILE, ON 2LPM VIA NC SATURATING AT 100%. NO SOB NOTED, NOT IN ANY FORM OF RESPIRATORY DISTRESS. LAST TELE READING WAS SR 90 HR. VITAL SIGNS TAKEN, STABLE AND RECORDED. SKIN CONDITIONS' PICTURES TAKEN FOR REFERENCE VS ADMISSION. WOUND TREATMENT GIVEN AND RELAYED TO SNF NURSE. FLACC SCORE O. STILL WITH PATENT G-TUBE, DRESSING CHANGED. NO BELONGINGS NOTED. DISCHARGE INSTRUCTIONS RELAYED TO MILLIC[facility]LE. MED RECON AND COVID TEST INCLUDED. DISCHARGED WITH FLOR PICCLINE FOR IV ATB THERAPY AT THE [facility]. KEPT MICHAELS CATHETER WELL, DRAINED ABOUT 600 ML OF PALE YELLOW URINE WITHOUT ANY SEDIMENTS. PATIENT WAS PICKED UP BY 2 CAD LIBRARIAN VIA TEX AT 1715 SAFELY. MD AND CHARGE NURSE AWARE OF THE DISCHARGE.
== END 2022-06-23 17:15 | DRG 710 ==
LOC: ER 08:07 → ICU 10:20 → TELE 06-22 10:19
PROVIDERS: ADMIT Nurse Practitioner Acute Care; ATTEND Internal Medicine
PROC: 30233N1 Transfusion of Nonautologous Red Blood Cells into Peripheral Vein, Percutaneous Approach (ICD-10-PCS; principal; 2022-06-17)
PROC: 02HV33Z Insertion of Infusion Device into Superior Vena Cava, Percutaneous Approach (ICD-10-PCS; 2022-06-17)
PROC: B548ZZA Ultrasonography of Superior Vena Cava, Guidance (ICD-10-PCS; 2022-06-17)
PROC: 0KBN0ZZ Excision of Right Hip Muscle, Open Approach (ICD-10-PCS; 2022-06-21)
PROC: 0DB58ZX Excision of Esophagus, Via Natural or Artificial Opening Endoscopic, Diagnostic (ICD-10-PCS; 2022-06-21)
PROC: 0KBP0ZZ Excision of Left Hip Muscle, Open Approach (ICD-10-PCS; 2022-06-21)
DX: A41.9 Sepsis, unspecified organism (principal); G92.8 Other toxic encephalopathy; K22.11 Ulcer of esophagus with bleeding; E43 Unspecified severe protein-calorie malnutrition; L89.154 Pressure ulcer of sacral region, stage 4; L89.624 Pressure ulcer of left heel, stage 4; R65.21 Severe sepsis with septic shock; R57.1 Hypovolemic shock; E87.20 Acidosis, unspecified; L89.896 Pressure-induced deep tissue damage of other site; Z16.24 Resistance to multiple antibiotics; N17.9 Acute kidney failure, unspecified; R53.2 Functional quadriplegia; N39.0 Urinary tract infection, site not specified; Z20.822 Contact with and (suspected) exposure to COVID-19; I10 Essential (primary) hypertension; E11.9 Type 2 diabetes mellitus without complications; K29.70 Gastritis, unspecified, without bleeding; I69.354 Hemiplegia and hemiparesis following cerebral infarction affecting left non-dominant side; Z93.1 Gastrostomy status; I69.320 Aphasia following cerebral infarction; Z79.51 Long term (current) use of inhaled steroids; Z79.84 Long term (current) use of oral hypoglycemic drugs; Z79.4 Long term (current) use of insulin; Z79.02 Long term (current) use of antithrombotics/antiplatelets; Z79.82 Long term (current) use of aspirin; Z79.899 Other long term (current) drug therapy; Z74.01 Bed confinement status; Z68.1 Body mass index [BMI] 19.9 or less, adult; E88.09 Other disorders of plasma-protein metabolism, not elsewhere classified; F01.50 Vascular dementia, unspecified severity, without behavioral disturbance, psychotic disturbance, mood disturbance, and anxiety; B96.89 Other specified bacterial agents as the cause of diseases classified elsewhere; J44.9 Chronic obstructive pulmonary disease, unspecified; K44.9 Diaphragmatic hernia without obstruction or gangrene; K80.20 Calculus of gallbladder without cholecystitis without obstruction; K57.30 Diverticulosis of large intestine without perforation or abscess without bleeding; E78.5 Hyperlipidemia, unspecified; D68.59 Other primary thrombophilia; D64.9 Anemia, unspecified; E83.42 Hypomagnesemia; E87.6 Hypokalemia; E86.1 Hypovolemia; M24.561 Contracture, right knee; M24.562 Contracture, left knee; N21.0 Calculus in bladder; Z16.12 Extended spectrum beta lactamase (ESBL) resistance; R57.8 Other shock
CPT/HCPCS: 36415; 71045-TC; 80048-TC; 80076-TC; 80202-TC; 81001; 82140-TC; 82272-TC; 82962-TC; 83540-TC; 83605-TC; 83690-TC; 83735-TC; 84100-TC; 84132-TC; 84484-TC; 85025-TC; 85730-TC; 86850-TC; 87040-TC; 87081-TC; 87086-TC; 88305-TC; 88312-TC; 93307-TC; 94760-TC; 94799-TC; A4223; A6253; A6403; A9563; C1769; C9113; G0378; J1815; J2185; J2405; J2543; J2704; J2916; J3370; J3475; J3480; J3490; J7030; J7040; J7042; J7050; J7060; P9016

== ENCOUNTER 2022-07-01 11:49 | Inpatient (IN) | payer MEDICAID ==
[~2022-07-01] VITALS: Ht 149.9 cm; Wt 39.0 kg
[~2022-07-01 11:49] MED LIST changes: +ACET-868 GT; -ACET325T53 PO; -ACET650S26 GT; -ALBUT2 NEB; -AMIN30LI2 GT; +ASCO-340 GT; -CLOP75TA15 GT; -CRAN3875 GT; -FLUC200P18 IV; +LACT-209 GT; -MERO1PIG IV; +MERO500V23 IV; -NUT.237L30 GT; -NUT.237L45 GT; -NUT.237L45 PEG; -POTA20TA83 PO; -Prosource GT; -SODI473S8 TD; -SODI473S8 TOP; +ZINC50TA65 GT
--- NOTE | 2022-07-01 12:20 | NUR ---
BIBEMT CC COFFEE GORUND EMESIS SINCE THIS MORNING. NON AMBULATORY NO SIGNS 0F DISTRESS VITAL SIGNS NOTED AND STABLE. MADE AWARE CARRIED OUT NURSING ORDRS PLAN OF CAR CONTINUES
[2022-07-01] MEDS ORDERED: PANTOPRAZOLE 40 MG VIAL ONE (12:26)
[2022-07-01] MEDS ORDERED: PANTOPRAZOLE 40 MG VIAL IV ONE (12:30)
--- NOTE | 2022-07-01 12:30 | NUR ---
COVID SWAB SENT TO LAB
--- NOTE | 2022-07-01 12:43 | NUR ---
occult blood fecal sample taken and sent to lab
--- NOTE | 2022-07-01 12:54 | NUR ---
phlebtomist at bedside
--- NOTE | 2022-07-01 13:10 | NUR ---
patient taken to ct via salvador
[2022-07-01 13:18] LABS: BASOPHILS % (AUTO) 0.3 % (0.0-2.0); EOSINOPHILS % (AUTO) 4.2 % (0.0-6.0); HEMATOCRIT 33 % (33-45); HEMOGLOBIN 10.3 g/dL (11.5-14.8); LYMPHOCYTES # (AUTO) 2.6 K/uL (0.8-4.8); LYMPHOCYTES % (AUTO) 18.8 % (20.0-44.0); MEAN CORPUSCULAR HGB CONC 32 g/dl (31.0-36.0); MEAN CORPUSCULAR VOLUME 93 fL (82-100); MONOCYTES # (AUTO) 0.8 K/uL (0.1-1.30); MONOCYTES % (AUTO) 5.6 % (2.0-12.0); NEUTROPHILS # (AUTO) 9.9 K/uL (1.8-8.9); NEUTROPHILS % (AUTO) 71.1 % (43.0-81.0); PLATELET COUNT (AUTO) 362 K/uL (150-450); WHITE BLOOD COUNT (AUTO) 13.9 K/uL (4.3-11.0)
[2022-07-01 13:31] LABS: CALCIUM, SERUM 8.9 mg/dL (8.5-10.1); CARBON DIOXIDE 27 mmol/L (21-32); CHLORIDE 103 mmol/L (98-107); CREATININE 0.5 mg/dL (0.6-1.3); GLUCOSE 122 mg/dL (74-106); POTASSIUM 4.1 mmol/L (3.5-5.1); SODIUM SERUM 137 mmol/L (136-145); UREA NITROGEN, BLOOD 18 mg/dL (7-18)
[2022-07-01 13:37] LABS: ALANINE AMINOTRANSFERASE 18 U/L (12-78); ALBUMIN 2.3 g/dL (3.4-5.0); ALKALINE PHOSPHATASE 158 U/L (46-116); ASPARTATE AMINOTRANSFERASE 20 U/L (15-37); BILIRUBIN,DIRECT 0.1 mg/dL (0.0-0.2); BILIRUBIN,TOTAL 0.3 mg/dL (0.2-1.0); LIPASE 275 U/L (73-393); TOTAL PROTEIN, SERUM 6.9 g/dL (6.4-8.2)
[2022-07-01 14:10] LABS: OCCULT BLOOD STOOL NEGATIVE (NEGATIVE)
--- NOTE | 2022-07-01 15:10 | NUR ---
report given to RNLakshmi for continuation of care
--- NOTE | 2022-07-01 16:11 | NUR ---
THE PATIENT IS TRANSFERED TO ASSIGNED BED IN STABLE CONDITION AND PER ACLS POLICY
[2022-07-01] MEDS ORDERED: DEXTROSE 50%-WATER 50 ML DISP.SYRIN IV PRN (17:00)
[2022-07-01] MEDS ORDERED: ONDANSETRON HCL/PF 4 MG/2 ML VIAL IVP PRN (17:00)
[2022-07-01] MEDS ORDERED: ALBUTEROL FS 2.5 MG/0.5 ML VIAL.NEB NEB PRN (17:00)
[2022-07-01] MEDS ORDERED: HYDROCODONE/APAP 5/325MG TABLET GT PRN (17:00)
[2022-07-01] MEDS ORDERED: Z GUARD REMEDY 4 OZ OINT TP PRN (17:00)
[2022-07-01] MEDS ORDERED: MAGNESIUM HYDROXIDE 30 ML UDC GT PRN (17:00)
[2022-07-01] MEDS ORDERED: ACETAMINOPHEN ES 500 MG TABLET GT PRN (17:00)
[2022-07-01] MEDS ORDERED: MAG HYDROX/AL HYDROX/SIMETH 30 ML UDC GT PRN (17:00)
[2022-07-01] MEDS ORDERED: SENNOSIDES 8.6 MG TABLET GT PRN (17:00)
[2022-07-01] MEDS ORDERED: *INSULIN REGULAR(HUMULIN R)HUM 100 UNIT/ML VIAL SQ PRN (17:00)
--- NOTE | 2022-07-01 17:00 | NUR ---
RECEIVED PATIENT FROM ER VIA GURNEY. PT ADMITTED FROM SNF D/T VOMITING. PT HAS A HX OF CVA WITH HEMIPARESIS, APHASIA, DYSPHAGIA, HTN, GERD DM, S/P G-TUBE PLACEMENT. PATIENT IS NONVERBAL, VERY OBTUNDED, SKIN RASH ALL OVER BODY, SACRAL PRESSURE ULCER. IV ACCESS RIGHT UPPER ARM PICCLINE. SAFETY MEASURES IMPLEMENTED, BED LOCKED, WILL CONTINUE TO MONITOR.
[2022-07-01] MEDS ORDERED: ACETAMINOPHEN 650 MG/20.3 ML UDC GT PRN ×2 (17:30)
[2022-07-01] MEDS: HYDROCODONE/APAP 5/325MG TABLET GT SCH (17:51)
[2022-07-01] MEDS: PANTOPRAZOLE 40 MG/PACK PACK GT SCH (17:52)
[2022-07-01] MEDS: BLOOD SUGAR DIAGNOSTIC 1 EACH STRIP VI SCH ×2 (17:52→23:27)
[2022-07-01 18:52] VITALS: BP 126/65
--- NOTE | 2022-07-01 19:50 | NUR ---
CHIP MIXER OPENING NOTE RECEIVED PATIENT IN BED ASLEEP. RESPONDS TO PHYSICAL STIMULATION. PT ALERT, OBTUNDED. ON O2 VIA NASAL CANNULA AT 2LPM. PICC LINE TO RIGHT UPPER ARM WITH D5 1/2 NS RUNNING AT 75ML/HR, INFUSING WELL. WITH G-TUBE STOMA INTACT. SAFETY PRECAUTIONS IN PLACE WITH BED IN LOWEST LOCKED POSITION, SIDE RAILS UP X 2 AND CALL LIGHT WITHIN REACH. WILL CONTINUE TO MONITOR.
[2022-07-01] MEDS: IPRATROPIUM NEB FS 0.5 MG/2.5 ML AMPUL.NEB NEB SCH (19:56)
[2022-07-01] MEDS: IV D5/0.45 NACL 1,000 ML IV PRN (23:46)
[2022-07-02] VITALS: BP 104/46
[2022-07-02] MEDS: IPRATROPIUM NEB FS 0.5 MG/2.5 ML AMPUL.NEB NEB SCH ×4 (01:30→19:49)
[2022-07-02 06:00] VITALS: BP 105/46
--- NOTE | 2022-07-02 07:30 | NUR ---
METAL CASTER OPENING NOTE RECEIVED PATIENT IN BED, ASLEEP. RESPONDS TO PHYSICAL STIMULATION. PT ALERT, OBTUNDED. ON O2 VIA NASAL CANNULA AT 2LPM. WITH PICC LINE TO FLOR WITH ONGOING D5 1/2 NS AT 75ML/HR, INFUSING WELL. ON A/C TECH WITH CURRENT READING OF SR. WITH G-TUBE STOMA INTACT, C/D/I. SAFETY PRECAUTIONS IN PLACE: BED IN LOWEST LOCKED POSITION, SIDE RAILS UP X 2 AND CALL LIGHT WITHIN REACH. WILL CONTINUE TO MONITOR.
--- NOTE | 2022-07-02 07:45 | NUR ---
RECREATION TECHNICIAN CLOSING NOTE LEFT PT SLEEPING IN BED. PT ALERT, UNABLE TO VERBALIZE NEEDS. NO ACUTE DISTRESS NOTED. PT LEFT IN STABLE CONDITION. ALL NEEDS ATTENDED, PT IS CLEANED, AND DRY. MD BROOKE WAS CALLED TO MAKE SURE PT SHOULD REMAINED NPO. STATED TO KEEP PT NPO. SAFETY MEASURES IN PLACE. WILL ENDORSE PT TO AM SHIFT NURSE FOR DARWIN.
[2022-07-02] MEDS: BLOOD SUGAR DIAGNOSTIC 1 EACH STRIP VI SCH ×4 (08:11→21:53)
[2022-07-02] MEDS: INSULIN REGULAR, HUMAN 100 UNIT/ML 3 ML VIAL SQ PRN (08:13)
[2022-07-02] MEDS: ACIDOPHILUS/BULGARICUS 1 EACH TAB.CHEW GT SCH (09:00)
[2022-07-02] MEDS: FERROUS SULFATE UDC 300 MG/5 ML UDC GT SCH (09:00)
[2022-07-02] MEDS: HYDROCODONE/APAP 5/325MG TABLET GT SCH ×2 (09:00→17:59)
[2022-07-02] MEDS: AMLODIPINE BESYLATE 5 MG TABLET GT SCH (09:00)
[2022-07-02] MEDS: ASCORBIC ACID 500 MG TABLET GT SCH (09:00)
[2022-07-02] MEDS: PANTOPRAZOLE 40 MG/PACK PACK GT SCH (09:00)
[2022-07-02 09:47] LABS: CALCIUM, SERUM 8.3 mg/dL (8.5-10.1); CARBON DIOXIDE 32 mmol/L (21-32); CHLORIDE 107 mmol/L (98-107); CREATININE 0.3 mg/dL (0.6-1.3); GLUCOSE 99 mg/dL (74-106); PHOSPHORUS 2.7 mg/dL (2.5-4.9); POTASSIUM 3.6 mmol/L (3.5-5.1); SODIUM SERUM 140 mmol/L (136-145); UREA NITROGEN, BLOOD 11 mg/dL (7-18)
[2022-07-02 09:55] LABS: BASOPHILS # (AUTO) 0.1 K/uL (0.0-0.2); EOSINOPHILS % (AUTO) 9.6 % (0.0-6.0); HEMATOCRIT 28 % (33-45); HEMOGLOBIN 9.1 g/dL (11.5-14.8); LYMPHOCYTES # (AUTO) 2.9 K/uL (0.8-4.8); LYMPHOCYTES % (AUTO) 29.8 % (20.0-44.0); MEAN CORPUSCULAR HGB CONC 33 g/dl (31.0-36.0); MEAN CORPUSCULAR VOLUME 93 fL (82-100); MONOCYTES # (AUTO) 0.6 K/uL (0.1-1.30); MONOCYTES % (AUTO) 6.4 % (2.0-12.0); NEUTROPHILS # (AUTO) 5.1 K/uL (1.8-8.9); NEUTROPHILS % (AUTO) 53.2 % (43.0-81.0); PLATELET COUNT (AUTO) 346 K/uL (150-450); RED BLOOD CELL COUNT(AUTO) 2.98 MIL/uL (4.0-5.2); WHITE BLOOD COUNT (AUTO) 9.6 K/uL (4.3-11.0)
--- NOTE | 2022-07-02 10:00 | NUR ---
RN NOTES OBTAINED CONSENT FOR EGD, BT AND ANESTHESIA. CARTER BROWN (SON) CONSENTED TO PROCEED WITH EGD, ANESTHESIA AND BT (IF NEEDED).
--- NOTE | 2022-07-02 11:25 | NUR ---
WOUND CARE CONSULT: LIMITED ASSESSMENT DUE TO PT BEING PREPARED FOR PROCEDURE. LEFT HEEL ULCER NOTED, RASH/REDNESS NOTED AROUND PEG SITE AND PT NOTED TO HAVE GENERALIZED RASH/SKIN CONDITION WITH MULTIPLE SCRATCH CURRY, ALL PRESENT ON ADMISSION. ADMISSION INFORMATION FROM SENDING FACILITY INDICATES SACRAL STAGE 4 PRESSURE ULCER AND BILATERAL BUTTOCK WOUNDS WELL RASH AND LEFT HEEL ULCER, PRESENT ON ADMISSION. DR DUMONT AND DR PARDO CALLED FOR SURGICAL AND DPM CONSULTS. DISCUSSED SKIN PROTECTION WITH NURSING STAFF. IN AGREEMENT WITH PLAN OF CARE. Addendum: 07/02/22 at 1145 by SANG GARCIA WNDNU FIRST STEP LOW AIRLOSS MATTRESS IS ON ORDER.
--- NOTE | 2022-07-02 11:43 | NUR ---
clarified with facility pt. dry and general rash ,per treatment nurse Renan from facility pt being treated with antifungal cream and not on isolation.
--- NOTE | 2022-07-02 11:45 | NUR ---
wound care nurse DAPHNIE seen and evaluated pt.
[2022-07-02 12:00] VITALS: BP 105/46
--- NOTE | 2022-07-02 12:00 | NUR ---
RN NOTES PATIENT LEFT THE UNIT FOR EGD ACCOMPANIED BY 2 OR STAFF.
--- NOTE | 2022-07-02 12:05 | NUR ---
RN NOTES BLOOD SUGAR CHECK NOT TAKEN AT 1200, PATIENT IN OR.
[2022-07-02] MEDS ORDERED: ZINC56.713 TP (12:16)
[2022-07-02] MEDS ORDERED: AMIN30LI2 GT (12:16)
[2022-07-02] MEDS ORDERED: ALBU2.5V38 IH (12:16)
[2022-07-02] MEDS ORDERED: ONDA4TAB5 GT (12:16)
[2022-07-02] MEDS ORDERED: CRAN425C6 GT (12:16)
[2022-07-02] MEDS ORDERED: COLL30OI TP (12:16)
[2022-07-02] MEDS ORDERED: CLOB15OI3 TP (12:16)
[2022-07-02] MEDS ORDERED: NUT.237L30 GT (12:16)
--- NOTE | 2022-07-02 14:02 | NUR ---
PATIENT IN SURGERY ACCORDING TO POLISHING PAD MOUNTER. Addendum: 07/02/22 at 1403 by KD CASTELLANO RT Amended: Links added.
--- NOTE | 2022-07-02 14:55 | NUR ---
RN NOTES PATIENT BACK IN THE UNIT VIA HOSPITAL BED AT 1450. RESUMED IVF D5 1/2 NS AT 75 ML/HR. CALLED DR. BAHENA AND VERIFY IF FEEDING CAN BE RESUMED, ORDERED TO RESUME TUBE FEEDING AND FOLLOW GI RECOMMENDATION; PROTONIX 40MG IV BID, AND CAN CONTINUE CLOBETASOL 0.05% OINTMENT TO RASHES.
[2022-07-02] MEDS ORDERED: GLUCERNA 1.2 1,000 ML BOTTLE NG PRN ×2 (15:00→15:32)
[2022-07-02] MEDS ORDERED: PANTOPRAZOLE 40 MG VIAL IV SCH (17:00)
[2022-07-02 18:37] VITALS: BP 159/85
[2022-07-02] MEDS: IV D5/0.45 NACL 1,000 ML IV PRN (19:39)
--- NOTE | 2022-07-02 19:43 | NUR ---
RECRUITING SPECIALIST OPENING NOTE RECEIVED PT AWAKE IN BED. ALERT AND NONVERBAL. ON O2 @ 2LPM VIA NC, TOLERATING WELL. NO SOB OR S/S OF RESPIRATORY DISTRESS. BREATHING EVEN AND UNLABORED. ON EXTERNAL RECREATION PROGRAM SPECIALIST READING SR 93 BPM. IV ACCESS FLOR PICC RUNNING D5 1/2 NS @ 75 ML/HR, INTACT AND PATENT. WITH GTUBE RUNNING GLUCERNA @ 50 ML/HR, TOLERATING WELL. WITH MICHAELS DRAINING URINE BY GRAVITY. SAFETY PRECAUTIONS IN PLACE. BED IN LOWEST LOCKED POSITION, HOB ELEVATED, SIDE RAILS UP X3, AND CALL LIGHT AND TABLE WITHIN REACH. ALL NEEDS MET AT THIS TIME.
--- NOTE | 2022-07-02 19:50 | NUR ---
RN CLOSING NOTE PT RESTING IN BED. A/O X 0-1, NONVERBAL. ON O2 @ 2LPM VIA NC, TOLERATING WELL. NO SOB OR S/S OF RESPIRATORY DISTRESS. ON EXTERNAL INSTRUCTOR OF NURSING READING SR. WITH FLOR PICC RUNNING D5 1/2 NS @ 75 ML/HR, INTACT AND PATENT. WITH G-TUBE RUNNING GLUCERNA @ 50 ML/HR, TOLERATING WELL. WITH MICHAELS DRAINING URINE BY GRAVITY. NEEDS ATTENDED. S/P EGD TODAY. SAFETY PRECAUTIONS IN PLACE. BED IN LOWEST LOCKED POSITION, HOB ELEVATED, SIDE RAILS UP X3, AND CALL LIGHT AND TABLE WITHIN REACH. WILL ENDORSE DARWIN TO UTILITY WORKER FORGE.
[2022-07-02 20:00] VITALS: BP 124/66
[2022-07-02] MEDS ORDERED: VANCOMYCIN 1 GM in IV D5W 250ml IV ONE ×4 (20:00)
[2022-07-02] MEDS: CLOBETASOL 0.05% OINT 30 GM TUBE TP SCH (20:25)
[2022-07-02] MEDS: FLUCONAZOLE (100 MG) 100 MG TABLET PO SCH (20:25)
--- NOTE | 2022-07-02 20:38 | NUR ---
RN NOTE HELD CLOBETASOL SINCE PT RECEIVED PERMETHRIN CREAM TONIGHT. CHARGE NURSE YANN JAIN.
[2022-07-02] MEDS ORDERED: PERMETHRIN 5% CRM 60 GM TUBE TP ONE (21:00)
[2022-07-02] MEDS ORDERED: IVERMECTIN 3 MG TABLET PO ONE (21:00)
[2022-07-02] MEDS: CEFEPIME 1 GM in IV D5W 50 ML IV SCH (21:25)
[2022-07-03] VITALS: BP 108/59
[2022-07-03] MEDS: IPRATROPIUM NEB FS 0.5 MG/2.5 ML AMPUL.NEB NEB SCH ×3 (01:48→13:32)
[2022-07-03 04:00] VITALS: BP 100/52
[2022-07-03] MEDS: VANCOMYCIN HCL 0.75 GM in IV D5W 250 ML IV SCH ×2 (04:28→13:53)
[2022-07-03 06:00] VITALS: BP 100/52
[2022-07-03 06:08] LABS: BASOPHILS # (AUTO) 0.1 K/uL (0.0-0.2); BASOPHILS % (AUTO) 0.6 % (0.0-2.0); EOSINOPHILS % (AUTO) 12.5 % (0.0-6.0); HEMATOCRIT 28 % (33-45); HEMOGLOBIN 9.4 g/dL (11.5-14.8); LYMPHOCYTES # (AUTO) 2.3 K/uL (0.8-4.8); LYMPHOCYTES % (AUTO) 25.5 % (20.0-44.0); MEAN CORPUSCULAR HGB CONC 33 g/dl (31.0-36.0); MEAN CORPUSCULAR VOLUME 93 fL (82-100); MONOCYTES # (AUTO) 0.6 K/uL (0.1-1.30); MONOCYTES % (AUTO) 6.5 % (2.0-12.0); NEUTROPHILS % (AUTO) 54.9 % (43.0-81.0); PLATELET COUNT (AUTO) 324 K/uL (150-450); RED BLOOD CELL COUNT(AUTO) 3.04 MIL/uL (4.0-5.2); WHITE BLOOD COUNT (AUTO) 9.1 K/uL (4.3-11.0)
--- NOTE | 2022-07-03 06:36 | NUR ---
DIRECTOR SANITATION BUREAU OPENING NOTE PT AWAKE IN BED. ALERT AND NONVERBAL. ON O2 @ 2LPM VIA NC, TOLERATING WELL. NO SOB OR S/S OF RESPIRATORY DISTRESS. BREATHING EVEN AND UNLABORED. ON EXTERNAL WORK TICKET DISTRIBUTOR READING SR 86 BPM. IV ACCESS FLOR PICC RUNNING D5 1/2 NS @ 75 ML/HR, INTACT AND PATENT. WITH GTUBE RUNNING GLUCERNA @ 50 ML/HR, TOLERATING WELL, NO RESIDUAL. WITH MICHAELS DRAINING URINE BY GRAVITY, DRAINED 400 ML. NO EPISODES OF EMESIS THIS SHIFT. ALL DUE MEDS GIVEN ORDERED. WILL ENDORSE PERMETHRIN TO BE WASHED OFF AT 1000. SAFETY PRECAUTIONS IN PLACE AT ALL TIMES. BED IN LOWEST LOCKED POSITION, HOB ELEVATED, SIDE RAILS UP X3, AND CALL LIGHT AND TABLE WITHIN REACH. ALL NEEDS MET AT THIS TIME AND WILL ENDORSE TO ONCOMING NURSE FOR DARWIN.
[2022-07-03 07:00] LABS: CALCIUM, SERUM 8.3 mg/dL (8.5-10.1); CARBON DIOXIDE 28 mmol/L (21-32); CHLORIDE 103 mmol/L (98-107); CREATININE 0.5 mg/dL (0.6-1.3); GLUCOSE 179 mg/dL (74-106); PHOSPHORUS 2.4 mg/dL (2.5-4.9); POTASSIUM 3.4 mmol/L (3.5-5.1); SODIUM SERUM 137 mmol/L (136-145); UREA NITROGEN, BLOOD 9 mg/dL (7-18)
[2022-07-03] MEDS: BLOOD SUGAR DIAGNOSTIC 1 EACH STRIP VI SCH ×3 (07:30→17:30)
[2022-07-03] MEDS ORDERED: POTASSIUM CHLORIDE 20 MEQ TAB.PRT.SR PO ONE (08:30)
[2022-07-03] MEDS: CEFEPIME 1 GM in IV D5W 50 ML IV SCH (09:00)
[2022-07-03] MEDS: CLOBETASOL 0.05% OINT 30 GM TUBE TP SCH (09:00)
[2022-07-03] MEDS: HYDROCODONE/APAP 5/325MG TABLET GT SCH ×3 (11:16→13:41)
[2022-07-03] MEDS: ACIDOPHILUS/BULGARICUS 1 EACH TAB.CHEW GT SCH ×2 (11:16→11:22)
[2022-07-03] MEDS: ASCORBIC ACID 500 MG TABLET GT SCH ×2 (11:16→11:22)
[2022-07-03] MEDS: SUCRALFATE 1 G TABLET PO SCH ×3 (11:17→18:27)
[2022-07-03] MEDS: AMLODIPINE BESYLATE 5 MG TABLET GT SCH ×2 (11:20→11:23)
[2022-07-03] MEDS: FERROUS SULFATE UDC 300 MG/5 ML UDC GT SCH (11:24)
[2022-07-03] MEDS: FLUCONAZOLE (100 MG) 100 MG TABLET PO SCH (11:34)
[2022-07-03] MEDS: PANTOPRAZOLE 40 MG/PACK PACK GT SCH ×2 (11:35→18:27)
[2022-07-03] MEDS ORDERED: NEUTRA PHOS 1 POWD.PACKET GT ONE (12:00)
--- NOTE | 2022-07-03 13:41 | NUR ---
Hydrocodone have been scanned twice by mistake.
[2022-07-03 18:00] VITALS: BP 126/63
[2022-07-03] MEDS: INSULIN REGULAR, HUMAN 100 UNIT/ML 3 ML VIAL SQ PRN (18:39)
--- NOTE | 2022-07-03 20:33 | NUR ---
Patient has been D/C
== END 2022-07-03 20:33 | DRG 242 ==
LOC: ER 11:51 → TELE1 14:31
PROVIDERS: ADMIT Internal Medicine; ATTEND Internal Medicine
PROC: 0DJ08ZZ Inspection of Upper Intestinal Tract, Via Natural or Artificial Opening Endoscopic (ICD-10-PCS; principal; 2022-07-02)
DX: K22.11 Ulcer of esophagus with bleeding (principal); G93.41 Metabolic encephalopathy; E43 Unspecified severe protein-calorie malnutrition; L89.154 Pressure ulcer of sacral region, stage 4; B37.81 Candidal esophagitis; D68.59 Other primary thrombophilia; E87.20 Acidosis, unspecified; L89.896 Pressure-induced deep tissue damage of other site; Z68.1 Body mass index [BMI] 19.9 or less, adult; K44.9 Diaphragmatic hernia without obstruction or gangrene; K22.2 Esophageal obstruction; D64.9 Anemia, unspecified; Z20.822 Contact with and (suspected) exposure to COVID-19; Z87.19 Personal history of other diseases of the digestive system; I69.398 Other sequelae of cerebral infarction; I10 Essential (primary) hypertension; Z79.51 Long term (current) use of inhaled steroids; Z79.899 Other long term (current) drug therapy; Z79.84 Long term (current) use of oral hypoglycemic drugs; Z79.4 Long term (current) use of insulin; Z79.82 Long term (current) use of aspirin; E78.5 Hyperlipidemia, unspecified; E83.51 Hypocalcemia; E88.09 Other disorders of plasma-protein metabolism, not elsewhere classified; Z87.440 Personal history of urinary (tract) infections; Z74.01 Bed confinement status; Z93.1 Gastrostomy status; R53.2 Functional quadriplegia; K21.9 Gastro-esophageal reflux disease without esophagitis; K57.90 Diverticulosis of intestine, part unspecified, without perforation or abscess without bleeding; F03.90 Unspecified dementia, unspecified severity, without behavioral disturbance, psychotic disturbance, mood disturbance, and anxiety; K80.20 Calculus of gallbladder without cholecystitis without obstruction; L97.429 Non-pressure chronic ulcer of left heel and midfoot with unspecified severity; M24.561 Contracture, right knee; M24.562 Contracture, left knee; B86 Scabies; B96.89 Other specified bacterial agents as the cause of diseases classified elsewhere; L89.620 Pressure ulcer of left heel, unstageable; D72.829 Elevated white blood cell count, unspecified
CPT/HCPCS: 36415; 80048-TC; 80076-TC; 82272-TC; 82962-TC; 83605-TC; 83690-TC; 83735-TC; 84100-TC; 85025-TC; 85730-TC; 86850-TC; 87081-TC; 94799-TC; A4223; A6403; C9113; C9803; G0378; J0692; J1815; J2704; J3370; J3490; J7030; J7050; J7060

== ENCOUNTER 2022-07-05 11:18 | Emergency (ER) | payer MEDICAID ==
[~2022-07-05] VITALS: Ht 152.4 cm; Wt 41.3 kg
[~2022-07-05 11:18] MED LIST changes: +ALBU2.5V38 IH; +AMIN30LI2 GT; -ASPI-1169 GT; +CLOB15OI3 TP; +COLL30OI TP; +CRAN425C6 GT; -LACT-209 GT; -MERO500V23 IV; +NUT.237L30 GT; +ONDA4TAB5 GT; +ZINC56.713 TP
--- NOTE | 2022-07-05 11:53 | NUR ---
BIB PA CO BLOOD IN MICHAELS CATHETER SEEN BY EMD PLACED ON MONITOR AND PULSE AWAITING FOR MD ORDERS. NOT IN CR DISTRESS. NURSING CARE CONTINUES
--- NOTE | 2022-07-05 12:04 | NUR ---
URINE COLLECTED , SENT TO LAB
--- NOTE | 2022-07-05 12:21 | NUR ---
EMD MADE AWARE REGARDING MICHAELS CATHETER, ADVISED TO WAIT FOR URINE RESULT BEFORE CHANGING
[2022-07-05 12:24] VITALS: BP 140/86
[2022-07-05 13:48] LABS: BILIRUBIN,URINE NEGATIVE (NEGATIVE); COLOR,URINE YELLOW (YELLOW); LEUKOCYTE ESTERASE ,URINE 1+ (NEGATIVE); NITRITE, URINE NEGATIVE (NEGATIVE); PROTEIN,URINE 1+ mg/dl (NEGATIVE); UGLUCOSE NEGATIVE (NEGATIVE); UROBILINOGEN,URINE 0.2 EU/dL (0.2)
[2022-07-05] MEDS ORDERED: LEVOFLOXACIN (250MG) 250 MG TABLET PO ONE (14:30)
[2022-07-05 14:34] LABS: BACTERIA,URINE Few /HPF (None Seen); SQUAMOUS EPITHELIAL CELL,UR Few /HPF (None Seen)
[2022-07-05] MEDS ORDERED: LEVOFLOXACIN (250MG) 250 MG TABLET ONE (14:34)
[2022-07-05] MEDS ORDERED: LEVO750T46 PO (14:44)
--- NOTE | 2022-07-05 15:13 | NUR ---
REPORT GIVEN TO DARNELL DUMONT [facility] [phone] FOR DARWIN.
--- NOTE | 2022-07-05 16:30 | NUR ---
PATIENT GENERATOR MECHANIC BY [facility] STAFF GOING BACK IN [facility] IN STABLE CONDITION. URINE OUTPUT CLEAR NO HEMATURIA.
== END 2022-07-05 16:30 ==
LOC: ER 11:32
DX: N39.0 Urinary tract infection, site not specified (principal); R31.9 Hematuria, unspecified; I10 Essential (primary) hypertension; E11.9 Type 2 diabetes mellitus without complications; Z79.899 Other long term (current) drug therapy; Z86.73 Personal history of transient ischemic attack (TIA), and cerebral infarction without residual deficits; Z79.4 Long term (current) use of insulin; Z79.82 Long term (current) use of aspirin
CPT/HCPCS: 81001; 87086-TC

== ENCOUNTER 2022-12-13 04:27 | Inpatient (IN) | payer MEDICAID ==
[~2022-12-13] VITALS: Ht 154.9 cm; Wt 41.8 kg
[~2022-12-13 04:27] MED LIST changes: -ACET-2605 GT; -ACID1TAB12 GT; -ALBU2.5V13 NEB; -AMLO-212 GT; +ARGI1POW13 GT; +CIPROFLOXACIN LEFTEYE; -CLOB15OI3 TP; +CRAN3875 GT; +FERR220S2 GT; -FERR300L GT; +IPRA0.2S9 IH; -IPRA0.2S9 NEB; +LACT1CAP25 GT; +PIPE3.379 IV; +POVI3780 TP; +VANC500F2 IV; -ZINC50TA65 GT; +[UNRECOGNIZED DRUG - SUPPLY] TP
[2022-12-13] MEDS ORDERED: ACETAMINOPHEN 650 MG/SUPP.RECT RC ONE ×2 (04:45→05:00)
[2022-12-13] MEDS ORDERED: VANCOMYCIN 1 GM in IV D5W 250 ML IV ONE (05:00)
[2022-12-13] MEDS ORDERED: PIPERACILLIN /TAZOBACTAM 3.375 G in IV D5W 50 ML IV ONE (05:00)
[2022-12-13] MEDS ORDERED: IV NS 0.9% 1,000 ML BAG IV ONE (05:00)
[2022-12-13 05:02] LABS: BASOPHILS % (AUTO) 0.1 % (0.0-2.0); HEMATOCRIT 28 % (33-45); LYMPHOCYTES # (AUTO) 1.1 K/uL (0.8-4.8); LYMPHOCYTES % (AUTO) 4.7 % (20.0-44.0); MEAN CORPUSCULAR HEMOGLOBIN 28 PG (26.0-33.0); MEAN CORPUSCULAR HGB CONC 32 g/dl (31.0-36.0); MEAN CORPUSCULAR VOLUME 86 fL (82-100); MONOCYTES # (AUTO) 0.8 K/uL (0.1-1.30); MONOCYTES % (AUTO) 3.4 % (2.0-12.0); NEUTROPHILS # (AUTO) 21.5 K/uL (1.8-8.9); NEUTROPHILS % (AUTO) 91.8 % (43.0-81.0); PLATELET COUNT (AUTO) 477 K/uL (150-450); RED BLOOD CELL COUNT(AUTO) 3.27 MIL/uL (4.0-5.2); RED CELL DISTRIBUTION WIDTH 17.6 % (11.5-15.0); WHITE BLOOD COUNT (AUTO) 23.4 K/uL (4.3-11.0)
[2022-12-13 05:05] LABS: APPEARANCE,URINE TURBID (CLEAR); BILIRUBIN,URINE NEGATIVE (NEGATIVE); BLOOD, URINE 1+ Ery/uL (NEGATIVE); COLOR,URINE DARK YELLOW (YELLOW); KETONES,URINE TRACE mg/dL (NEGATIVE); LEUKOCYTE ESTERASE ,URINE 3+ (NEGATIVE); NITRITE, URINE NEGATIVE (NEGATIVE); PH,URINE >9.0 (5.0-8.0); PROTEIN,URINE 2+ mg/dl (NEGATIVE); UGLUCOSE NEGATIVE (NEGATIVE)
[2022-12-13 05:06] LABS: ADD URINE CULTURE YES; BACTERIA,URINE Moderate /HPF (None Seen); RBC,URINE 0-2 /HPF (0-2); SQUAMOUS EPITHELIAL CELL,UR Rare /HPF (None Seen); WBC,URINE 21-50 /HPF (0-3)
[2022-12-13 05:13] LABS: CALCIUM, SERUM 8.8 mg/dL (8.5-10.1); CARBON DIOXIDE 24 mmol/L (21-32); CHLORIDE 99 mmol/L (98-107); CREATININE 0.6 mg/dL (0.6-1.3); GLUCOSE 187 mg/dL (74-106); POTASSIUM 3.6 mmol/L (3.5-5.1); SODIUM SERUM 133 mmol/L (136-145); UREA NITROGEN, BLOOD 17 mg/dL (7-18)
[2022-12-13 05:14] LABS: INR 1.06 (0.91-1.10); PARTIAL THROMBOPLASTIN TIME 31.2 SEC (24.3-34.3); PROTHROMBIN TIME 11.1 SECS (9.2-11.1)
[2022-12-13] MEDS ORDERED: VANCOMYCIN 1 GM /D5W 250 ML PB IV ONE (05:19)
[2022-12-13] MEDS ORDERED: PIPERACI/TAZO 3.375GM/D5W 50ML PB IV ONE (05:19)
[2022-12-13 05:21] LABS: LACTIC ACID 1.9 mmol/L (0.4-2.0)
[2022-12-13 05:26] LABS: ALANINE AMINOTRANSFERASE 12 U/L (12-78); ALBUMIN 1.8 g/dL (3.4-5.0); ALKALINE PHOSPHATASE 138 U/L (46-116); ASPARTATE AMINOTRANSFERASE 18 U/L (15-37); BILIRUBIN,DIRECT 0.1 mg/dL (0.0-0.2); BILIRUBIN,TOTAL 0.3 mg/dL (0.2-1.0); NT-PRO BNP 599 pg/mL (0-125); TOTAL PROTEIN, SERUM 7.5 g/dL (6.4-8.2)
[2022-12-13] MEDS ORDERED: ACETAMINOPHEN 650 MG/20.3 ML UDC GT PRN (07:30)
[2022-12-13] MEDS ORDERED: DEXTROSE 50%-WATER 50 ML DISP.SYRIN IV PRN (07:30)
[2022-12-13] MEDS ORDERED: ONDANSETRON HCL/PF 4 MG/2 ML VIAL IVP PRN (07:30)
[2022-12-13] MEDS ORDERED: MAGNESIUM HYDROXIDE 30 ML UDC GT PRN (07:30)
[2022-12-13] MEDS ORDERED: Z GUARD REMEDY 4 OZ OINT TP PRN (07:30)
[2022-12-13] MEDS: PANTOPRAZOLE 40 MG/PACK PACK GT SCH (09:00)
[2022-12-13] MEDS ORDERED: ZINC220C6 GT (09:02)
[2022-12-13] MEDS ORDERED: CLOP75TA15 GT (09:02)
[2022-12-13] MEDS ORDERED: ASPI-1169 GT (09:02)
[2022-12-13] MEDS ORDERED: AMLO-212 GT (09:02)
[2022-12-13] MEDS ORDERED: FERR325T28 GT (09:02)
[2022-12-13] MEDS ORDERED: ACET-2605 GT (09:02)
[2022-12-13 14:55] VITALS: BP 105/59; TEMP 100; O2SAT 97
[2022-12-13] MEDS: BLOOD SUGAR DIAGNOSTIC 1 EACH STRIP IN SCH ×3 (14:55→23:40)
[2022-12-13] MEDS: CEFEPIME 1 GM in IV D5W 50 ML IV SCH (15:55)
[2022-12-13] MEDS: IV LR 1000 ML 1,000 ML IV PRN (15:56)
[2022-12-13] MEDS ORDERED: GLUCERNA 1.2 1,000 ML BOTTLE NG PRN (17:00)
[2022-12-13] MEDS: VANCOMYCIN 0.75 GM in IV D5W 250 ML IV SCH (18:12)
[2022-12-13] MEDS: INSULIN REGULAR, HUMAN 100 UNIT/ML 3 ML VIAL SQ PRN ×2 (18:58→23:40)
[2022-12-13 20:00] VITALS: BP 110/56; TEMP 97.5; O2SAT 94
[2022-12-14 00:22] VITALS: BP 94/69; TEMP 98.4; O2SAT 100
[2022-12-14] MEDS: CEFEPIME 1 GM in IV D5W 50 ML IV SCH ×2 (02:46→15:40)
[2022-12-14 04:15] VITALS: BP 100/47; TEMP 98.8; O2SAT 100
[2022-12-14] MEDS: VANCOMYCIN 0.75 GM in IV D5W 250 ML IV SCH ×2 (05:04→17:48)
[2022-12-14] MEDS: BLOOD SUGAR DIAGNOSTIC 1 EACH STRIP IN SCH ×3 (05:12→18:02)
[2022-12-14] MEDS: INSULIN REGULAR, HUMAN 100 UNIT/ML 3 ML VIAL SQ PRN ×3 (05:12→18:02)
[2022-12-14 07:15] LABS: BASOPHILS % (AUTO) 0.1 % (0.0-2.0); EOSINOPHILS # (AUTO) 0.1 K/uL (0.0-0.7); EOSINOPHILS % (AUTO) 0.5 % (0.0-6.0); HEMATOCRIT 23 % (33-45); HEMOGLOBIN 7.2 g/dL (11.5-14.8); LYMPHOCYTES # (AUTO) 2.1 K/uL (0.8-4.8); LYMPHOCYTES % (AUTO) 15.4 % (20.0-44.0); MEAN CORPUSCULAR HEMOGLOBIN 27 PG (26.0-33.0); MEAN CORPUSCULAR HGB CONC 32 g/dl (31.0-36.0); MEAN CORPUSCULAR VOLUME 86 fL (82-100); MONOCYTES # (AUTO) 0.6 K/uL (0.1-1.30); NEUTROPHILS # (AUTO) 10.9 K/uL (1.8-8.9); PLATELET COUNT (AUTO) 397 K/uL (150-450); RED BLOOD CELL COUNT(AUTO) 2.62 MIL/uL (4.0-5.2); RED CELL DISTRIBUTION WIDTH 17.4 % (11.5-15.0); WHITE BLOOD COUNT (AUTO) 13.7 K/uL (4.3-11.0)
[2022-12-14 07:30] LABS: CALCIUM, SERUM 8.5 mg/dL (8.5-10.1); CARBON DIOXIDE 25 mmol/L (21-32); CHLORIDE 102 mmol/L (98-107); CREATININE 0.4 mg/dL (0.6-1.3); GLUCOSE 169 mg/dL (74-106); MAGNESIUM 1.9 mg/dL (1.8-2.4); PHOSPHORUS 2.2 mg/dL (2.5-4.9); SODIUM SERUM 135 mmol/L (136-145); UREA NITROGEN, BLOOD 11 mg/dL (7-18)
[2022-12-14 08:00] VITALS: BP 109/75; TEMP 98.2; O2SAT 99
[2022-12-14] MEDS: PANTOPRAZOLE 40 MG/PACK PACK GT SCH (08:41)
[2022-12-14] MEDS ORDERED: GLUCERNA 1.2 1,000 ML BOTTLE NG PRN (11:00)
[2022-12-14] MEDS: POTASSIUM CHLORIDE 20 MEQ POWDER PACKET PO SCH ×3 (11:02→13:03)
[2022-12-14] MEDS: IV LR 1000 ML 1,000 ML IV PRN (11:12)
[2022-12-14 12:00] VITALS: BP 114/52; TEMP 98.3; O2SAT 99
[2022-12-14] MEDS ORDERED: NEUTRA PHOS 1 POWD.PACKET GT ONE (15:30)
[2022-12-14] MEDS ORDERED: NEUTRA PHOS 1 POWD.PACKET PO ONE (15:30)
[2022-12-14] MEDS: THERAHONEY GEL 1.5 OZ TUBE TP SCH (15:41)
[2022-12-14] MEDS: CLOTRIMAZOLE 1% 15 GM TUBE TP SCH ×2 (15:42→17:46)
[2022-12-14] MEDS: DAKINS QUARTER STRENGTH (0.125%) 480 ML BOTTLE TOP SCH (15:42)
[2022-12-14 16:00] VITALS: BP 106/58; TEMP 97.5; O2SAT 99
[2022-12-14 20:00] VITALS: BP 129/65; TEMP 98.6; O2SAT 100
[2022-12-14] MEDS: GLUCERNA 1.2 1,000 ML BOTTLE GT PRN (21:55)
[2022-12-15] VITALS: BP 118/71; TEMP 98; O2SAT 98
[2022-12-15] MEDS: BLOOD SUGAR DIAGNOSTIC 1 EACH STRIP IN SCH ×5 (00:08→23:26)
[2022-12-15] MEDS: INSULIN REGULAR, HUMAN 100 UNIT/ML 3 ML VIAL SQ PRN ×3 (00:09→18:46)
[2022-12-15] MEDS: IV LR 1000 ML 1,000 ML IV PRN (02:23)
[2022-12-15] MEDS: CEFEPIME 1 GM in IV D5W 50 ML IV SCH ×2 (02:28→15:06)
[2022-12-15] MEDS: VANCOMYCIN 0.75 GM in IV D5W 250 ML IV SCH ×2 (06:00→17:19)
[2022-12-15 07:32] LABS: CALCIUM, SERUM 8.5 mg/dL (8.5-10.1); CARBON DIOXIDE 23 mmol/L (21-32); CHLORIDE 105 mmol/L (98-107); CREATININE 0.3 mg/dL (0.6-1.3); GLUCOSE 148 mg/dL (74-106); POTASSIUM 4.1 mmol/L (3.5-5.1); SODIUM SERUM 136 mmol/L (136-145); UREA NITROGEN, BLOOD 7 mg/dL (7-18)
[2022-12-15 08:00] VITALS: BP 127/66; TEMP 98.6; O2SAT 93
[2022-12-15] MEDS: DAKINS QUARTER STRENGTH (0.125%) 480 ML BOTTLE TOP SCH (08:07)
[2022-12-15] MEDS: THERAHONEY GEL 1.5 OZ TUBE TP SCH (08:07)
[2022-12-15] MEDS: CLOTRIMAZOLE 1% 15 GM TUBE TP SCH ×2 (08:07→18:09)
[2022-12-15] MEDS: PANTOPRAZOLE 40 MG/PACK PACK GT SCH (08:09)
[2022-12-15] MEDS ORDERED: SENNOSIDES 8.6 MG TABLET GT PRN (13:00)
[2022-12-15] MEDS ORDERED: ALBUTEROL FS 2.5 MG/3 ML VIAL.NEB IH PRN (13:00)
[2022-12-15] MEDS ORDERED: ACETAMINOPHEN ES 500 MG TABLET GT PRN (13:00)
[2022-12-15] MEDS ORDERED: ACETAMINOPHEN 650 MG/20.3 ML UDC GT PRN (14:00)
[2022-12-15 16:00] VITALS: BP_SYST 120; BP_SYST 121; BP_DIAS 61; BP_DIAS 69; TEMP 97.6; O2SAT 100; O2SAT 99
[2022-12-15] MEDS: FERROUS SULFATE (325 MG) 325 MG/TAB TABLET GT SCH (17:18)
[2022-12-15] MEDS: HYDROCODONE/APAP 5/325MG TABLET GT SCH (17:19)
[2022-12-15] MEDS: ARGININE/GLUTAMINE/CALCIUM BMB 1 EACH POWD.PACK GT SCH (17:19)
[2022-12-15] MEDS: PROSOURCE / PROSTAT (PYXIS) 30 ML UDC GT SCH (17:19)
[2022-12-15] MEDS: GLUCERNA 1.2 1,000 ML BOTTLE GT PRN (18:10)
[2022-12-15 20:01] VITALS: O2SAT 98
[2022-12-15 20:16] VITALS: O2SAT 99
[2022-12-15] MEDS: IPRATROPIUM NEB FS 0.5 MG/2.5 ML AMPUL.NEB IH SCH (20:32)
[2022-12-16] VITALS (12 sets, daily range): BP systolic 120–144; BP diastolic 57–67; TEMP 97–98.1; O2SAT 95–100
[2022-12-16] MEDS: IPRATROPIUM NEB FS 0.5 MG/2.5 ML AMPUL.NEB IH SCH ×4 (02:09→20:06)
[2022-12-16] MEDS: CEFEPIME 1 GM in IV D5W 50 ML IV SCH ×2 (02:37→14:10)
[2022-12-16] MEDS: IV LR 1000 ML 1,000 ML IV PRN ×2 (02:38→17:34)
[2022-12-16] MEDS: BLOOD SUGAR DIAGNOSTIC 1 EACH STRIP IN SCH ×3 (06:09→17:15)
[2022-12-16] MEDS: VANCOMYCIN 0.75 GM in IV D5W 250 ML IV SCH ×2 (06:09→18:07)
[2022-12-16 06:20] LABS: CALCIUM, SERUM 8.6 mg/dL (8.5-10.1); CARBON DIOXIDE 25 mmol/L (21-32); CHLORIDE 104 mmol/L (98-107); CREATININE 0.4 mg/dL (0.6-1.3); GLUCOSE 117 mg/dL (74-106); POTASSIUM 4.3 mmol/L (3.5-5.1); SODIUM SERUM 135 mmol/L (136-145); UREA NITROGEN, BLOOD 17 mg/dL (7-18)
[2022-12-16 06:30] LABS: BASOPHILS % (AUTO) 0.4 % (0.0-2.0); EOSINOPHILS # (AUTO) 0.3 K/uL (0.0-0.7); EOSINOPHILS % (AUTO) 2.8 % (0.0-6.0); HEMATOCRIT 24 % (33-45); HEMOGLOBIN 7.7 g/dL (11.5-14.8); LYMPHOCYTES # (AUTO) 2.3 K/uL (0.8-4.8); LYMPHOCYTES % (AUTO) 24.7 % (20.0-44.0); MEAN CORPUSCULAR HEMOGLOBIN 28 PG (26.0-33.0); MEAN CORPUSCULAR HGB CONC 32 g/dl (31.0-36.0); MEAN CORPUSCULAR VOLUME 87 fL (82-100); MONOCYTES # (AUTO) 0.4 K/uL (0.1-1.30); MONOCYTES % (AUTO) 4.8 % (2.0-12.0); NEUTROPHILS # (AUTO) 6.2 K/uL (1.8-8.9); NEUTROPHILS % (AUTO) 67.3 % (43.0-81.0); PLATELET COUNT (AUTO) 488 K/uL (150-450); WHITE BLOOD COUNT (AUTO) 9.2 K/uL (4.3-11.0)
[2022-12-16] MEDS ORDERED: LIDOCAINE 1%-EPI 1:100,000 20 ML VIAL TP ONE (07:15)
[2022-12-16] MEDS ORDERED: SILVER NITRATE APPLICATOR 1 EA BOX TP PRN (07:15)
[2022-12-16] MEDS: INSULIN REGULAR, HUMAN 100 UNIT/ML 3 ML VIAL SQ PRN (07:32)
[2022-12-16] MEDS: THERAHONEY GEL 1.5 OZ TUBE TP SCH ×2 (07:58→08:04)
[2022-12-16] MEDS: CLOTRIMAZOLE 1% 15 GM TUBE TP SCH ×2 (07:58→16:11)
[2022-12-16] MEDS: PROSOURCE / PROSTAT (PYXIS) 30 ML UDC GT SCH ×3 (07:59→16:11)
[2022-12-16] MEDS: DAKINS QUARTER STRENGTH (0.125%) 480 ML BOTTLE TOP SCH (07:59)
[2022-12-16] MEDS: ARGININE/GLUTAMINE/CALCIUM BMB 1 EACH POWD.PACK GT SCH ×2 (08:00→16:11)
[2022-12-16] MEDS: HYDROCODONE/APAP 5/325MG TABLET GT SCH ×2 (08:41→16:11)
[2022-12-16] MEDS: CLOPIDOGREL BISULFATE 75 MG TABLET GT SCH (08:41)
[2022-12-16] MEDS: PANTOPRAZOLE 40 MG/PACK PACK GT SCH (08:41)
[2022-12-16] MEDS: ASPIRIN 81 MG TAB.CHEW GT SCH (08:41)
[2022-12-16] MEDS: MULTIVIT W/MINERALS 1 TAB TABLET GT SCH (08:41)
[2022-12-16] MEDS: FERROUS SULFATE (325 MG) 325 MG/TAB TABLET GT SCH ×2 (08:41→16:11)
[2022-12-16] MEDS: AMLODIPINE BESYLATE 5 MG TABLET GT SCH (08:41)
[2022-12-16] MEDS: ASCORBIC ACID 500 MG TABLET GT SCH (08:41)
[2022-12-16] MEDS: ACIDOPHILUS/BULGARICUS 1 EACH TAB.CHEW GT SCH (08:43)
[2022-12-16] MEDS: ENOXAPARIN SODIUM 40 MG/0.4 ML DISP.SYRIN SQ SCH (11:08)
[2022-12-16] MEDS: GLUCERNA 1.2 1,000 ML BOTTLE GT PRN (15:33)
[2022-12-17] VITALS (11 sets, daily range): BP systolic 103–124; BP diastolic 57–60; TEMP 96.7–98.4; O2SAT 95–99
[2022-12-17] MEDS: IPRATROPIUM NEB FS 0.5 MG/2.5 ML AMPUL.NEB IH SCH ×4 (01:54→20:08)
[2022-12-17] MEDS: CEFEPIME 1 GM in IV D5W 50 ML IV SCH ×2 (03:31→15:05)
[2022-12-17] MEDS: VANCOMYCIN 0.75 GM in IV D5W 250 ML IV SCH ×2 (06:00→17:18)
[2022-12-17] MEDS: BLOOD SUGAR DIAGNOSTIC 1 EACH STRIP IN SCH ×5 (06:00→23:37)
[2022-12-17 07:44] LABS: BASOPHILS % (AUTO) 0.3 % (0.0-2.0); EOSINOPHILS # (AUTO) 0.2 K/uL (0.0-0.7); EOSINOPHILS % (AUTO) 1.8 % (0.0-6.0); HEMATOCRIT 22 % (33-45); HEMOGLOBIN 7.3 g/dL (11.5-14.8); LYMPHOCYTES # (AUTO) 2.3 K/uL (0.8-4.8); LYMPHOCYTES % (AUTO) 21.5 % (20.0-44.0); MEAN CORPUSCULAR HEMOGLOBIN 29 PG (26.0-33.0); MEAN CORPUSCULAR HGB CONC 34 g/dl (31.0-36.0); MEAN CORPUSCULAR VOLUME 85 fL (82-100); MONOCYTES # (AUTO) 0.5 K/uL (0.1-1.30); MONOCYTES % (AUTO) 4.6 % (2.0-12.0); NEUTROPHILS # (AUTO) 7.8 K/uL (1.8-8.9); NEUTROPHILS % (AUTO) 71.8 % (43.0-81.0); PLATELET COUNT (AUTO) 543 K/uL (150-450); RED BLOOD CELL COUNT(AUTO) 2.54 MIL/uL (4.0-5.2); WHITE BLOOD COUNT (AUTO) 10.9 K/uL (4.3-11.0)
[2022-12-17 08:01] LABS: CALCIUM, SERUM 8.3 mg/dL (8.5-10.1); CARBON DIOXIDE 26 mmol/L (21-32); CHLORIDE 101 mmol/L (98-107); CREATININE 0.4 mg/dL (0.6-1.3); GLUCOSE 108 mg/dL (74-106); POTASSIUM 3.9 mmol/L (3.5-5.1); SODIUM SERUM 134 mmol/L (136-145); UREA NITROGEN, BLOOD 9 mg/dL (7-18)
[2022-12-17] MEDS ORDERED: THERAHONEY GEL 1.5 OZ TUBE TP SCH (09:00)
[2022-12-17] MEDS: DAKINS QUARTER STRENGTH (0.125%) 480 ML BOTTLE TOP SCH (09:14)
[2022-12-17] MEDS: CLOTRIMAZOLE 1% 15 GM TUBE TP SCH ×2 (09:14→17:11)
[2022-12-17] MEDS: THERAHONEY GEL 1.5 OZ TUBE TP SCH ×2 (09:15)
[2022-12-17] MEDS: ACIDOPHILUS/BULGARICUS 1 EACH TAB.CHEW GT SCH (09:46)
[2022-12-17] MEDS: PANTOPRAZOLE 40 MG/PACK PACK GT SCH (09:46)
[2022-12-17] MEDS: ASPIRIN 81 MG TAB.CHEW GT SCH (09:47)
[2022-12-17] MEDS: ENOXAPARIN SODIUM 40 MG/0.4 ML DISP.SYRIN SQ SCH (09:47)
[2022-12-17] MEDS: AMLODIPINE BESYLATE 5 MG TABLET GT SCH (09:47)
[2022-12-17] MEDS: CLOPIDOGREL BISULFATE 75 MG TABLET GT SCH (09:48)
[2022-12-17] MEDS: FERROUS SULFATE (325 MG) 325 MG/TAB TABLET GT SCH ×2 (09:48→17:14)
[2022-12-17] MEDS: ASCORBIC ACID 500 MG TABLET GT SCH (09:49)
[2022-12-17] MEDS: HYDROCODONE/APAP 5/325MG TABLET GT SCH ×2 (09:49→17:14)
[2022-12-17] MEDS: MULTIVIT W/MINERALS 1 TAB TABLET GT SCH (09:49)
[2022-12-17] MEDS: PROSOURCE / PROSTAT (PYXIS) 30 ML UDC GT SCH ×3 (09:50→17:11)
[2022-12-17] MEDS: ARGININE/GLUTAMINE/CALCIUM BMB 1 EACH POWD.PACK GT SCH ×2 (09:50→17:11)
[2022-12-17] MEDS: VANCOMYCIN HCL 125 MG/2.5 ML ORAL.SUSP GT SCH ×2 (12:03→17:14)
[2022-12-17] MEDS: SOD FERRIC GLUC 125 MG in IV NS 0.9% 100 ML IV SCH (13:10)
[2022-12-17] MEDS: INSULIN REGULAR, HUMAN 100 UNIT/ML 3 ML VIAL SQ PRN (23:39)
[2022-12-18] VITALS (11 sets, daily range): BP systolic 111–140; BP diastolic 60–73; TEMP 97.5–98.8; O2SAT 89–100
[2022-12-18] MEDS: GLUCERNA 1.2 1,000 ML BOTTLE GT PRN (00:59)
[2022-12-18] MEDS: VANCOMYCIN HCL 125 MG/2.5 ML ORAL.SUSP GT SCH ×5 (00:59→23:56)
[2022-12-18] MEDS: IPRATROPIUM NEB FS 0.5 MG/2.5 ML AMPUL.NEB IH SCH ×5 (01:30→19:39)
[2022-12-18] MEDS: CEFEPIME 1 GM in IV D5W 50 ML IV SCH ×2 (03:08→15:04)
[2022-12-18 03:18] LABS: OCCULT BLOOD STOOL NEGATIVE (NEGATIVE)
[2022-12-18] MEDS: BLOOD SUGAR DIAGNOSTIC 1 EACH STRIP IN SCH ×3 (05:41→17:44)
[2022-12-18] MEDS: VANCOMYCIN 0.75 GM in IV D5W 250 ML IV SCH ×2 (05:43→17:52)
[2022-12-18] MEDS: HYDROCODONE/APAP 5/325MG TABLET GT SCH ×2 (08:22→16:25)
[2022-12-18] MEDS: MULTIVIT W/MINERALS 1 TAB TABLET GT SCH (08:23)
[2022-12-18] MEDS: ASCORBIC ACID 500 MG TABLET GT SCH (08:23)
[2022-12-18] MEDS: PANTOPRAZOLE 40 MG/PACK PACK GT SCH (08:23)
[2022-12-18] MEDS: FERROUS SULFATE (325 MG) 325 MG/TAB TABLET GT SCH ×2 (08:23→16:25)
[2022-12-18] MEDS: ASPIRIN 81 MG TAB.CHEW GT SCH (08:23)
[2022-12-18] MEDS: ARGININE/GLUTAMINE/CALCIUM BMB 1 EACH POWD.PACK GT SCH ×2 (08:24→16:25)
[2022-12-18] MEDS: ACIDOPHILUS/BULGARICUS 1 EACH TAB.CHEW GT SCH (08:24)
[2022-12-18] MEDS: PROSOURCE / PROSTAT (PYXIS) 30 ML UDC GT SCH ×3 (08:25→16:25)
[2022-12-18] MEDS: THERAHONEY GEL 1.5 OZ TUBE TP SCH ×2 (08:26→09:29)
[2022-12-18] MEDS: CLOTRIMAZOLE 1% 15 GM TUBE TP SCH ×2 (08:27→16:27)
[2022-12-18] MEDS: DAKINS QUARTER STRENGTH (0.125%) 480 ML BOTTLE TOP SCH (08:27)
[2022-12-18] MEDS: ENOXAPARIN SODIUM 40 MG/0.4 ML DISP.SYRIN SQ SCH (08:29)
[2022-12-18 08:50] LABS: BASOPHILS # (AUTO) 0.1 K/uL (0.0-0.2); BASOPHILS % (AUTO) 0.5 % (0.0-2.0); EOSINOPHILS # (AUTO) 0.1 K/uL (0.0-0.7); HEMATOCRIT 26 % (33-45); HEMOGLOBIN 8.1 g/dL (11.5-14.8); LYMPHOCYTES # (AUTO) 2.4 K/uL (0.8-4.8); LYMPHOCYTES % (AUTO) 16.6 % (20.0-44.0); MEAN CORPUSCULAR HEMOGLOBIN 28 PG (26.0-33.0); MEAN CORPUSCULAR HGB CONC 32 g/dl (31.0-36.0); MEAN CORPUSCULAR VOLUME 88 fL (82-100); MONOCYTES # (AUTO) 0.5 K/uL (0.1-1.30); MONOCYTES % (AUTO) 3.6 % (2.0-12.0); NEUTROPHILS # (AUTO) 11.4 K/uL (1.8-8.9); NEUTROPHILS % (AUTO) 78.3 % (43.0-81.0); PLATELET COUNT (AUTO) 598 K/uL (150-450); RED BLOOD CELL COUNT(AUTO) 2.91 MIL/uL (4.0-5.2); RED CELL DISTRIBUTION WIDTH 17.3 % (11.5-15.0); WHITE BLOOD COUNT (AUTO) 14.5 K/uL (4.3-11.0)
[2022-12-18 08:59] LABS: CALCIUM, SERUM 8.4 mg/dL (8.5-10.1); CARBON DIOXIDE 24 mmol/L (21-32); CHLORIDE 99 mmol/L (98-107); CREATININE 0.3 mg/dL (0.6-1.3); GLUCOSE 131 mg/dL (74-106); SODIUM SERUM 130 mmol/L (136-145); UREA NITROGEN, BLOOD 22 mg/dL (7-18)
[2022-12-18] MEDS: AMLODIPINE BESYLATE 5 MG TABLET GT SCH (09:03)
[2022-12-18] MEDS: CLOPIDOGREL BISULFATE 75 MG TABLET GT SCH (09:03)
[2022-12-18] MEDS: INSULIN REGULAR, HUMAN 100 UNIT/ML 3 ML VIAL SQ PRN ×2 (11:29→17:48)
[2022-12-18] MEDS: METRONIDAZOLE 500 MG TABLET PO SCH ×2 (14:06→21:52)
[2022-12-18] MEDS: SOD FERRIC GLUC 125 MG in IV NS 0.9% 100 ML IV SCH (14:31)
[2022-12-19] VITALS (13 sets, daily range): BP systolic 104–121; BP diastolic 49–59; TEMP 97.7–99.7; O2SAT 95–100
[2022-12-19] MEDS: BLOOD SUGAR DIAGNOSTIC 1 EACH STRIP IN SCH ×4 (00:08→17:41)
[2022-12-19] MEDS: INSULIN REGULAR, HUMAN 100 UNIT/ML 3 ML VIAL SQ PRN ×4 (00:08→18:10)
[2022-12-19] MEDS: IPRATROPIUM NEB FS 0.5 MG/2.5 ML AMPUL.NEB IH SCH ×4 (01:24→19:15)
[2022-12-19] MEDS: CEFEPIME 1 GM in IV D5W 50 ML IV SCH (02:40)
[2022-12-19] MEDS: METRONIDAZOLE 500 MG TABLET PO SCH ×3 (05:43→21:21)
[2022-12-19] MEDS: VANCOMYCIN HCL 125 MG/2.5 ML ORAL.SUSP GT SCH ×3 (05:58→17:41)
[2022-12-19] MEDS: VANCOMYCIN 0.75 GM in IV D5W 250 ML IV SCH ×2 (05:58→17:41)
[2022-12-19 06:48] LABS: BASOPHILS # (AUTO) 0.1 K/uL (0.0-0.2); BASOPHILS % (AUTO) 0.2 % (0.0-2.0); EOSINOPHILS % (AUTO) 0.1 % (0.0-6.0); HEMATOCRIT 24 % (33-45); HEMOGLOBIN 7.4 g/dL (11.5-14.8); LYMPHOCYTES # (AUTO) 2.4 K/uL (0.8-4.8); LYMPHOCYTES % (AUTO) 10.4 % (20.0-44.0); MEAN CORPUSCULAR HEMOGLOBIN 27 PG (26.0-33.0); MEAN CORPUSCULAR HGB CONC 32 g/dl (31.0-36.0); MEAN CORPUSCULAR VOLUME 87 fL (82-100); MONOCYTES # (AUTO) 1.1 K/uL (0.1-1.30); MONOCYTES % (AUTO) 4.5 % (2.0-12.0); NEUTROPHILS % (AUTO) 84.8 % (43.0-81.0); PLATELET COUNT (AUTO) 564 K/uL (150-450); RED BLOOD CELL COUNT(AUTO) 2.73 MIL/uL (4.0-5.2); RED CELL DISTRIBUTION WIDTH 17.5 % (11.5-15.0); WHITE BLOOD COUNT (AUTO) 23.6 K/uL (4.3-11.0)
[2022-12-19 06:51] LABS: CALCIUM, SERUM 8.6 mg/dL (8.5-10.1); CARBON DIOXIDE 27 mmol/L (21-32); CHLORIDE 103 mmol/L (98-107); CREATININE 0.5 mg/dL (0.6-1.3); GLUCOSE 157 mg/dL (74-106); POTASSIUM 3.7 mmol/L (3.5-5.1); SODIUM SERUM 135 mmol/L (136-145); UREA NITROGEN, BLOOD 13 mg/dL (7-18)
[2022-12-19] MEDS: ASPIRIN 81 MG TAB.CHEW GT SCH (09:35)
[2022-12-19] MEDS: ENOXAPARIN SODIUM 40 MG/0.4 ML DISP.SYRIN SQ SCH (09:35)
[2022-12-19] MEDS: ASCORBIC ACID 500 MG TABLET GT SCH (09:35)
[2022-12-19] MEDS: MULTIVIT W/MINERALS 1 TAB TABLET GT SCH (09:35)
[2022-12-19] MEDS: ACIDOPHILUS/BULGARICUS 1 EACH TAB.CHEW GT SCH (09:35)
[2022-12-19] MEDS: FERROUS SULFATE (325 MG) 325 MG/TAB TABLET GT SCH ×2 (09:35→16:21)
[2022-12-19] MEDS: PANTOPRAZOLE 40 MG/PACK PACK GT SCH (09:35)
[2022-12-19] MEDS: CLOPIDOGREL BISULFATE 75 MG TABLET GT SCH (09:35)
[2022-12-19] MEDS: AMLODIPINE BESYLATE 5 MG TABLET GT SCH (09:36)
[2022-12-19] MEDS: HYDROCODONE/APAP 5/325MG TABLET GT SCH ×2 (09:36→16:21)
[2022-12-19] MEDS: THERAHONEY GEL 1.5 OZ TUBE TP SCH (09:37)
[2022-12-19] MEDS: DAKINS QUARTER STRENGTH (0.125%) 480 ML BOTTLE TOP SCH (09:37)
[2022-12-19] MEDS: CLOTRIMAZOLE 1% 15 GM TUBE TP SCH ×2 (09:37→16:21)
[2022-12-19] MEDS: PROSOURCE / PROSTAT (PYXIS) 30 ML UDC GT SCH ×3 (09:38→16:21)
[2022-12-19] MEDS: ARGININE/GLUTAMINE/CALCIUM BMB 1 EACH POWD.PACK GT SCH ×2 (09:38→16:21)
[2022-12-19] MEDS: SOD FERRIC GLUC 125 MG in IV NS 0.9% 100 ML IV SCH (13:41)
[2022-12-19] MEDS: MEROPENEM 500 MG in IV NS 0.9% 50 ML IV SCH (14:46)
[2022-12-19] MEDS: GLUCERNA 1.2 1,000 ML BOTTLE GT PRN (18:28)
[2022-12-20] VITALS (12 sets, daily range): BP systolic 111–131; BP diastolic 54–68; TEMP 97.7–98.5; O2SAT 95–100
[2022-12-20] MEDS: MEROPENEM 500 MG in IV NS 0.9% 50 ML IV SCH ×4 (00:08→22:08)
[2022-12-20] MEDS: BLOOD SUGAR DIAGNOSTIC 1 EACH STRIP IN SCH ×4 (00:27→17:49)
[2022-12-20] MEDS: VANCOMYCIN HCL 125 MG/2.5 ML ORAL.SUSP GT SCH ×4 (00:27→17:33)
[2022-12-20] MEDS: IPRATROPIUM NEB FS 0.5 MG/2.5 ML AMPUL.NEB IH SCH ×4 (01:33→20:03)
[2022-12-20] MEDS: VANCOMYCIN 0.75 GM in IV D5W 250 ML IV SCH (05:56)
[2022-12-20] MEDS: METRONIDAZOLE 500 MG TABLET PO SCH ×3 (06:00→20:33)
[2022-12-20] MEDS: INSULIN REGULAR, HUMAN 100 UNIT/ML 3 ML VIAL SQ PRN ×2 (06:03→17:48)
[2022-12-20 06:49] LABS: BASOPHILS # (AUTO) 0.1 K/uL (0.0-0.2); BASOPHILS % (AUTO) 0.4 % (0.0-2.0); EOSINOPHILS # (AUTO) 0.2 K/uL (0.0-0.7); EOSINOPHILS % (AUTO) 1.5 % (0.0-6.0); HEMATOCRIT 22 % (33-45); HEMOGLOBIN 7.4 g/dL (11.5-14.8); LYMPHOCYTES # (AUTO) 2.1 K/uL (0.8-4.8); LYMPHOCYTES % (AUTO) 17.9 % (20.0-44.0); MEAN CORPUSCULAR HEMOGLOBIN 29 PG (26.0-33.0); MEAN CORPUSCULAR HGB CONC 33 g/dl (31.0-36.0); MEAN CORPUSCULAR VOLUME 87 fL (82-100); MONOCYTES # (AUTO) 0.6 K/uL (0.1-1.30); MONOCYTES % (AUTO) 5.6 % (2.0-12.0); NEUTROPHILS # (AUTO) 8.6 K/uL (1.8-8.9); NEUTROPHILS % (AUTO) 74.6 % (43.0-81.0); PLATELET COUNT (AUTO) 501 K/uL (150-450); RED BLOOD CELL COUNT(AUTO) 2.58 MIL/uL (4.0-5.2); WHITE BLOOD COUNT (AUTO) 11.5 K/uL (4.3-11.0)
[2022-12-20 07:08] LABS: CALCIUM, SERUM 8.1 mg/dL (8.5-10.1); CARBON DIOXIDE 26 mmol/L (21-32); CHLORIDE 104 mmol/L (98-107); CREATININE 0.4 mg/dL (0.6-1.3); GLUCOSE 142 mg/dL (74-106); POTASSIUM 3.7 mmol/L (3.5-5.1); SODIUM SERUM 138 mmol/L (136-145); UREA NITROGEN, BLOOD 11 mg/dL (7-18)
[2022-12-20] MEDS: ENOXAPARIN SODIUM 40 MG/0.4 ML DISP.SYRIN SQ SCH (09:00)
[2022-12-20] MEDS: HYDROCODONE/APAP 5/325MG TABLET GT SCH ×2 (09:00→17:00)
[2022-12-20] MEDS: ASPIRIN 81 MG TAB.CHEW GT SCH (09:48)
[2022-12-20] MEDS: MULTIVIT W/MINERALS 1 TAB TABLET GT SCH (09:48)
[2022-12-20] MEDS: PANTOPRAZOLE 40 MG/PACK PACK GT SCH (09:48)
[2022-12-20] MEDS: AMLODIPINE BESYLATE 5 MG TABLET GT SCH (09:49)
[2022-12-20] MEDS: ASCORBIC ACID 500 MG TABLET GT SCH (09:50)
[2022-12-20] MEDS: FERROUS SULFATE (325 MG) 325 MG/TAB TABLET GT SCH ×2 (09:50→16:57)
[2022-12-20] MEDS: ACIDOPHILUS/BULGARICUS 1 EACH TAB.CHEW GT SCH (09:50)
[2022-12-20] MEDS: CLOPIDOGREL BISULFATE 75 MG TABLET GT SCH (09:51)
[2022-12-20] MEDS: THERAHONEY GEL 1.5 OZ TUBE TP SCH (09:53)
[2022-12-20] MEDS: DAKINS QUARTER STRENGTH (0.125%) 480 ML BOTTLE TOP SCH (09:53)
[2022-12-20] MEDS: CLOTRIMAZOLE 1% 15 GM TUBE TP SCH ×2 (09:53→17:31)
[2022-12-20] MEDS: PROSOURCE / PROSTAT (PYXIS) 30 ML UDC GT SCH ×3 (09:58→16:57)
[2022-12-20] MEDS: ARGININE/GLUTAMINE/CALCIUM BMB 1 EACH POWD.PACK GT SCH ×2 (09:58→16:58)
[2022-12-20] MEDS: GLUCERNA 1.2 1,000 ML BOTTLE GT PRN (12:38)
[2022-12-20] MEDS: SOD FERRIC GLUC 125 MG in IV NS 0.9% 100 ML IV SCH (12:57)
[2022-12-21] VITALS (8 sets, daily range): BP systolic 112–118; BP diastolic 58–64; TEMP 97.5–98.6; O2SAT 95–100
[2022-12-21] MEDS: VANCOMYCIN HCL 125 MG/2.5 ML ORAL.SUSP GT SCH ×5 (00:14→23:34)
[2022-12-21] MEDS: BLOOD SUGAR DIAGNOSTIC 1 EACH STRIP IN SCH ×5 (00:25→23:47)
[2022-12-21] MEDS: INSULIN REGULAR, HUMAN 100 UNIT/ML 3 ML VIAL SQ PRN ×2 (00:25→05:17)
[2022-12-21] MEDS: IPRATROPIUM NEB FS 0.5 MG/2.5 ML AMPUL.NEB IH SCH ×4 (01:34→20:26)
[2022-12-21] MEDS: METRONIDAZOLE 500 MG TABLET PO SCH ×3 (04:22→20:55)
[2022-12-21 05:59] LABS: BASOPHILS # (AUTO) 0.1 K/uL (0.0-0.2); BASOPHILS % (AUTO) 0.6 % (0.0-2.0); EOSINOPHILS # (AUTO) 0.3 K/uL (0.0-0.7); EOSINOPHILS % (AUTO) 2.8 % (0.0-6.0); HEMATOCRIT 23 % (33-45); HEMOGLOBIN 7.2 g/dL (11.5-14.8); LYMPHOCYTES % (AUTO) 20.5 % (20.0-44.0); MEAN CORPUSCULAR HEMOGLOBIN 28 PG (26.0-33.0); MEAN CORPUSCULAR HGB CONC 32 g/dl (31.0-36.0); MEAN CORPUSCULAR VOLUME 88 fL (82-100); MONOCYTES # (AUTO) 0.5 K/uL (0.1-1.30); MONOCYTES % (AUTO) 5.4 % (2.0-12.0); NEUTROPHILS # (AUTO) 6.9 K/uL (1.8-8.9); NEUTROPHILS % (AUTO) 70.7 % (43.0-81.0); PLATELET COUNT (AUTO) 621 K/uL (150-450); RED BLOOD CELL COUNT(AUTO) 2.57 MIL/uL (4.0-5.2); RED CELL DISTRIBUTION WIDTH 18.3 % (11.5-15.0); WHITE BLOOD COUNT (AUTO) 9.8 K/uL (4.3-11.0)
[2022-12-21 06:23] LABS: ALANINE AMINOTRANSFERASE 12 U/L (12-78); ALBUMIN 1.5 g/dL (3.4-5.0); ALKALINE PHOSPHATASE 105 U/L (46-116); ASPARTATE AMINOTRANSFERASE 11 U/L (15-37); BILIRUBIN,TOTAL 0.1 mg/dL (0.2-1.0); CALCIUM, SERUM 8.5 mg/dL (8.5-10.1); CARBON DIOXIDE 25 mmol/L (21-32); CHLORIDE 104 mmol/L (98-107); CREATININE 0.4 mg/dL (0.6-1.3); GLUCOSE 125 mg/dL (74-106); POTASSIUM 3.7 mmol/L (3.5-5.1); SODIUM SERUM 137 mmol/L (136-145); TOTAL PROTEIN, SERUM 6.2 g/dL (6.4-8.2); UREA NITROGEN, BLOOD 13 mg/dL (7-18)
[2022-12-21] MEDS: MEROPENEM 500 MG in IV NS 0.9% 50 ML IV SCH ×3 (06:29→22:53)
[2022-12-21] MEDS: HYDROCODONE/APAP 5/325MG TABLET GT SCH (09:00)
[2022-12-21] MEDS: ASCORBIC ACID 500 MG TABLET GT SCH (09:16)
[2022-12-21] MEDS: FERROUS SULFATE (325 MG) 325 MG/TAB TABLET GT SCH ×2 (09:16→17:33)
[2022-12-21] MEDS: MULTIVIT W/MINERALS 1 TAB TABLET GT SCH (09:16)
[2022-12-21] MEDS: PANTOPRAZOLE 40 MG/PACK PACK GT SCH (09:16)
[2022-12-21] MEDS: ACIDOPHILUS/BULGARICUS 1 EACH TAB.CHEW GT SCH (09:16)
[2022-12-21] MEDS: ASPIRIN 81 MG TAB.CHEW GT SCH (09:16)
[2022-12-21] MEDS: AMLODIPINE BESYLATE 5 MG TABLET GT SCH (09:17)
[2022-12-21] MEDS: ARGININE/GLUTAMINE/CALCIUM BMB 1 EACH POWD.PACK GT SCH ×2 (09:19→17:33)
[2022-12-21] MEDS: PROSOURCE / PROSTAT (PYXIS) 30 ML UDC GT SCH ×3 (09:19→17:35)
[2022-12-21] MEDS: THERAHONEY GEL 1.5 OZ TUBE TP SCH (09:20)
[2022-12-21] MEDS: DAKINS QUARTER STRENGTH (0.125%) 480 ML BOTTLE TOP SCH (09:20)
[2022-12-21] MEDS: CLOTRIMAZOLE 1% 15 GM TUBE TP SCH ×2 (09:20→17:35)
[2022-12-21] MEDS: CLOPIDOGREL BISULFATE 75 MG TABLET GT SCH (09:32)
[2022-12-21] MEDS: GLUCERNA 1.2 1,000 ML BOTTLE GT PRN (10:18)
[2022-12-21] MEDS ORDERED: HYDROCODONE/APAP 5/325MG TABLET GT PRN (10:30)
[2022-12-21] MEDS: SOD FERRIC GLUC 125 MG in IV NS 0.9% 100 ML IV SCH (14:13)
[2022-12-21] MEDS ORDERED: IV NS 0.9% 500 ML IV PRN (17:00)
[2022-12-22 02:07] VITALS: O2SAT 95
[2022-12-22 02:17] VITALS: O2SAT 99
[2022-12-22] MEDS: IPRATROPIUM NEB FS 0.5 MG/2.5 ML AMPUL.NEB IH SCH ×2 (02:28→07:44)
[2022-12-22 04:00] VITALS: BP 120/55; TEMP 97.9; O2SAT 97
[2022-12-22] MEDS: METRONIDAZOLE 500 MG TABLET PO SCH ×2 (04:06→13:03)
[2022-12-22] MEDS: VANCOMYCIN HCL 125 MG/2.5 ML ORAL.SUSP GT SCH ×2 (05:01→13:03)
[2022-12-22] MEDS: BLOOD SUGAR DIAGNOSTIC 1 EACH STRIP IN SCH ×2 (05:20→13:08)
[2022-12-22] MEDS: MEROPENEM 500 MG in IV NS 0.9% 50 ML IV SCH (06:01)
[2022-12-22 07:34] LABS: BASOPHILS # (AUTO) 0.1 K/uL (0.0-0.2); EOSINOPHILS # (AUTO) 0.3 K/uL (0.0-0.7); EOSINOPHILS % (AUTO) 3.1 % (0.0-6.0); HEMATOCRIT 25 % (33-45); HEMOGLOBIN 8.3 g/dL (11.5-14.8); LYMPHOCYTES # (AUTO) 2.4 K/uL (0.8-4.8); LYMPHOCYTES % (AUTO) 25.1 % (20.0-44.0); MEAN CORPUSCULAR HEMOGLOBIN 29 PG (26.0-33.0); MEAN CORPUSCULAR HGB CONC 33 g/dl (31.0-36.0); MEAN CORPUSCULAR VOLUME 88 fL (82-100); MONOCYTES # (AUTO) 0.5 K/uL (0.1-1.30); MONOCYTES % (AUTO) 5.7 % (2.0-12.0); NEUTROPHILS # (AUTO) 6.2 K/uL (1.8-8.9); NEUTROPHILS % (AUTO) 65.1 % (43.0-81.0); PLATELET COUNT (AUTO) 699 K/uL (150-450); RED CELL DISTRIBUTION WIDTH 18.4 % (11.5-15.0); WHITE BLOOD COUNT (AUTO) 9.5 K/uL (4.3-11.0)
[2022-12-22 07:44] VITALS: O2SAT 96
[2022-12-22 08:00] VITALS: BP 117/63; TEMP 97.7; O2SAT 100
[2022-12-22 08:08] LABS: ALANINE AMINOTRANSFERASE 14 U/L (12-78); ALBUMIN 1.8 g/dL (3.4-5.0); ALKALINE PHOSPHATASE 114 U/L (46-116); ASPARTATE AMINOTRANSFERASE 16 U/L (15-37); BILIRUBIN,TOTAL 0.1 mg/dL (0.2-1.0); CALCIUM, SERUM 8.8 mg/dL (8.5-10.1); CARBON DIOXIDE 26 mmol/L (21-32); CHLORIDE 104 mmol/L (98-107); CREATININE 0.4 mg/dL (0.6-1.3); GLUCOSE 132 mg/dL (74-106); POTASSIUM 3.7 mmol/L (3.5-5.1); SODIUM SERUM 136 mmol/L (136-145); TOTAL PROTEIN, SERUM 7.1 g/dL (6.4-8.2); UREA NITROGEN, BLOOD 11 mg/dL (7-18)
[2022-12-22] MEDS: ASPIRIN 81 MG TAB.CHEW GT SCH (08:54)
[2022-12-22] MEDS: ACIDOPHILUS/BULGARICUS 1 EACH TAB.CHEW GT SCH (08:54)
[2022-12-22] MEDS: ASCORBIC ACID 500 MG TABLET GT SCH (08:54)
[2022-12-22] MEDS: PANTOPRAZOLE 40 MG/PACK PACK GT SCH (08:54)
[2022-12-22] MEDS: MULTIVIT W/MINERALS 1 TAB TABLET GT SCH (08:54)
[2022-12-22] MEDS: FERROUS SULFATE (325 MG) 325 MG/TAB TABLET GT SCH (08:54)
[2022-12-22] MEDS: CLOPIDOGREL BISULFATE 75 MG TABLET GT SCH (08:54)
[2022-12-22] MEDS: PROSOURCE / PROSTAT (PYXIS) 30 ML UDC GT SCH ×2 (08:55→13:04)
[2022-12-22] MEDS: ARGININE/GLUTAMINE/CALCIUM BMB 1 EACH POWD.PACK GT SCH (08:56)
[2022-12-22] MEDS ORDERED: PANT40SU2 GT (10:10)
[2022-12-22] MEDS ORDERED: VANC125C11 GT (10:10)
[2022-12-22 10:24] VITALS: BP 117/63
[2022-12-22] MEDS: AMLODIPINE BESYLATE 5 MG TABLET GT SCH (10:24)
[2022-12-22] MEDS: DAKINS QUARTER STRENGTH (0.125%) 480 ML BOTTLE TOP SCH (12:58)
[2022-12-22] MEDS: CLOTRIMAZOLE 1% 15 GM TUBE TP SCH (13:00)
[2022-12-22] MEDS: THERAHONEY GEL 1.5 OZ TUBE TP SCH (13:15)
== END 2022-12-22 13:40 | DRG 710 ==
LOC: ER 04:36 → TELE1 14:02 → MEDSG1 12-14 13:39
PROVIDERS: ADMIT Nurse Practitioner Acute Care; ATTEND Internal Medicine
PROC: 05H533Z Insertion of Infusion Device into Right Subclavian Vein, Percutaneous Approach (ICD-10-PCS; 2022-12-15)
PROC: B546ZZA Ultrasonography of Right Subclavian Vein, Guidance (ICD-10-PCS; 2022-12-15)
PROC: 0KBN0ZZ Excision of Right Hip Muscle, Open Approach (ICD-10-PCS; principal; 2022-12-18)
PROC: 0QB10ZZ Excision of Sacrum, Open Approach (ICD-10-PCS; 2022-12-18)
PROC: 0KBW0ZZ Excision of Left Foot Muscle, Open Approach (ICD-10-PCS; 2022-12-18)
PROC: 0QB10ZZ Excision of Sacrum, Open Approach (ICD-10-PCS; 2022-12-22)
PROC: 0KBN0ZZ Excision of Right Hip Muscle, Open Approach (ICD-10-PCS; 2022-12-22)
DX: A41.9 Sepsis, unspecified organism (principal); J96.01 Acute respiratory failure with hypoxia; G93.41 Metabolic encephalopathy; L89.154 Pressure ulcer of sacral region, stage 4; E43 Unspecified severe protein-calorie malnutrition; L89.214 Pressure ulcer of right hip, stage 4; A04.72 Enterocolitis due to Clostridium difficile, not specified as recurrent; L89.624 Pressure ulcer of left heel, stage 4; J69.0 Pneumonitis due to inhalation of food and vomit; L89.226 Pressure-induced deep tissue damage of left hip; J15.9 Unspecified bacterial pneumonia; R53.2 Functional quadriplegia; J90 Pleural effusion, not elsewhere classified; F03.90 Unspecified dementia, unspecified severity, without behavioral disturbance, psychotic disturbance, mood disturbance, and anxiety; Z20.822 Contact with and (suspected) exposure to COVID-19; D64.9 Anemia, unspecified; E78.5 Hyperlipidemia, unspecified; E88.09 Other disorders of plasma-protein metabolism, not elsewhere classified; I10 Essential (primary) hypertension; I69.354 Hemiplegia and hemiparesis following cerebral infarction affecting left non-dominant side; N39.0 Urinary tract infection, site not specified; R13.10 Dysphagia, unspecified; M24.562 Contracture, left knee; M24.561 Contracture, right knee; Z93.1 Gastrostomy status; L30.4 Erythema intertrigo; Z68.1 Body mass index [BMI] 19.9 or less, adult; B96.20 Unspecified Escherichia coli [E. coli] as the cause of diseases classified elsewhere
CPT/HCPCS: 36410; 36415; 71045-TC; 80048-TC; 80053-TC; 80076-TC; 80202-TC; 81001; 82272-TC; 82962-TC; 83605-TC; 83735-TC; 83880; 84100-TC; 84484-TC; 85025-TC; 85730-TC; 86850-TC; 87040-TC; 87081-TC; 87086-TC; 94762-TC; 94799-TC; A4217; A4223; A6253; A6403; C9803; G0378; J0692; J1650; J1815; J2185; J2405; J2543; J2916; J3370; J3490; J7030; J7040; J7060; J7120